=== PATIENT | female | born 1965 | race Caucasian/White ===

== ENCOUNTER → 2023-07-21 08:04 | Outpatient (REF) | payer BC, SELFPAY | LOC: RAD 08:04 | PROVIDERS: ATTENDING PHYSICIAN Nurse Practitioner Family; FAMILY PHYSICIAN Nurse Practitioner Gerontology | DX: C50.919 Malignant neoplasm of unspecified site of unspecified female breast (principal); C78.00 Secondary malignant neoplasm of unspecified lung; R06.00 Dyspnea, unspecified | CPT/HCPCS: 71275; Q9967 ==

== ENCOUNTER → 2023-07-23 10:05 | Outpatient (REF) | payer BC, SELFPAY ==
--- NOTE | 2023-07-23 13:57 | W.PN.UPDATE ---
Update Note
Progress Note Update
tpa/dornase instilled in to the right Asept catheter and left to dwell for 2 hours. AFter 2 hours the Asept was attached to suction and 500cc of serosanguinous fluid was removed. Pt tolerated the procedure well
== END ==
LOC: RADI 10:05
PROVIDERS: ATTENDING PHYSICIAN Nurse Practitioner Family
DX: T85.9XXA Unspecified complication of internal prosthetic device, implant and graft, initial encounter (principal); J90 Pleural effusion, not elsewhere classified; Y83.8 Other surgical procedures as the cause of abnormal reaction of the patient, or of later complication, without mention of misadventure at the time of the procedure
CPT/HCPCS: 32561; J2997

== ENCOUNTER → 2023-09-20 08:36 | Outpatient (REF) | payer BC, SELFPAY ==
[2023-09-20 07:45] VITALS: BP 148/93; BP_SYST 96
[2023-09-20 08:45] VITALS: BP 148/93; BP_SYST 96
--- NOTE | 2023-09-20 09:54 | PTCARENOTE ---
TPA/Dornase instilled by IRAD technologist. Patient resting quietly.
[2023-09-20 11:30] VITALS: BP 148/93
--- NOTE | 2023-09-20 13:14 | PN.IRAD.UPD ---
Update Note - IRAD
- -
injected tpa/dornase at 950, drained it at 1150, took off 350ml of eve fluid, redressed and no complaints
== END ==
LOC: RADI 08:36
PROVIDERS: ATTENDING PHYSICIAN Nurse Practitioner Family; FAMILY PHYSICIAN Nurse Practitioner Gerontology
DX: J90 Pleural effusion, not elsewhere classified (principal)
CPT/HCPCS: 32561; J2997

== ENCOUNTER → 2023-10-11 09:01 | Outpatient (REF) | payer BC, SELFPAY ==
[2023-10-11 09:15] VITALS: BP 182/97; BP_SYST 85
[2023-10-11 11:30] VITALS: BP 164/93; BP_SYST 80
--- NOTE | 2023-10-11 12:27 | PN.IRAD.UPD ---
Update Note - IRAD
- -
INSTILLED TPA AT 1010, DRAINED RIGHT ASEPT AT 1210. TOOK OFF 325ML DARK RED FLUID, NO COMPLAINTS EXCEPT PAIN AT THE SITE. REDRESSED WITH NEW DRESSINGS. AP
== END ==
LOC: RADI 09:01
PROVIDERS: ATTENDING PHYSICIAN Nurse Practitioner Primary Care
DX: C80.1 Malignant (primary) neoplasm, unspecified (principal); J91.0 Malignant pleural effusion
CPT/HCPCS: 32561; J2997

== ENCOUNTER 2023-11-06 14:08 | Emergency (ER) | payer BC, SELFPAY ==
[2023-11-06] VITALS (7 sets, daily range): BP systolic 131–161; BP diastolic 79–94; BMI 26.5
--- NOTE | 2023-11-06 14:33 | ED.GENMED ---
History of Present Illness
General
Chief Complaint: Urinary Symptoms
Source: patient and family (daughter)
Exam Limitations: none
Time Seen by Provider: 11/06/23 14:15
Nursing documentation reviewed up to this point in time: agreed with
Travel History
Have you had any contact with someone who has COVID-19?: No
Do you have any symptoms of coronavirus? Fever > 100 degrees, chills, cough, shortness of breath, sore throat, loss of taste or smell, muscle aches, or headache?: No
History of Present Illness
History of Present Illness:
58-year-old female with a past medical history of breast cancer status post mastectomy, metastatic cervical cancer, atrial fibrillation who presents to the emergency department for evaluation of lower abdominal pressure and hematuria. Patient
reports that she woke up last night with the urge to urinate and when she went to the bathroom she passed some clots through her urethra. She says that she was unable to pass any urine and she had a sensation that her bladder was full. She says
that all day today she has had increasing lower abdominal pressure 'like I have to have a baby.' She says that she has only been able to pass a few clots through her urethra but no urine. She has not noticed any vaginal bleeding. She finally came
to the emergency to be assessed. She denies any recent fevers or chills. She denies any flank pain. She has chronic back pain not worse than usual. She has had a lot of swelling in her lower extremities and abdominal wall she says as a result of
radiation treatments but these were not new issues for her. She denies any other complaints today on review of systems. She takes aspirin but no other blood thinners. [facility] status post
radiation treatment and double mastectomy for breast cancer as well as radiation treatment for cervical cancer; she is currently on chemotherapy (Taxol) for metastatic disease and has chronic pleural effusions with bilateral Pleurx catheters.
Past History
Past History
ED Past Medical History: Arrthythmia and Cancer
ED Past Surgical History:
Social History
Tobacco: Former smoker
Alcohol: None
Drug: None
Personal: Single
Living: with family
Employment: Not employed (Homemaker)
Family History
Family History: CAD
Review of Systems
Review of Systems
All Other Systems: ROS reviewed and negative except as documented in HPI and ROS
Constitutional: Denies fever or chills
Respiratory: Denies trouble breathing
Cardiac: Denies chest pain
ABD/GI: Denies abdominal pain, nausea, vomiting, diarrhea or constipated
: Reports difficulty voiding and bleeding; Denies flank pain
Musculoskeletal: Reports edema (Chronic) and back pain (Chronic); Denies neck pain
Neurological: Denies dizzy or headache
Phy Exam
Physical Exam
Physical Exam:
General: Awake, alert, oriented x3; no acute distress
Head: Normocephalic, atraumatic
Eyes: Conjunctiva normal
Throat: Airway intact, handling secretions
Neck: Trachea midline, supple without meningismus
Lungs: Clear to auscultation bilaterally, no wheezing, rales, rhonchi
Heart: Regular rate and rhythm, no murmurs, gallops, or rubs
Abd: Soft, non distended, tender in the suprapubic region with palpable bladder
Back: No CVA tenderness, no midline thoracic or lumbar tenderness
Neuro: Cranial nerves grossly intact, speech fluid
Skin: no rash
Extremities: Patient has trace edema in her legs bilaterally; distal extremities are warm and well-perfused
Scores
Heart Failure Risk
Heart Failure Risk Score: Not Applicable
Heart Score for Chest Pain Patients
STEMI patient?: Not applicable
Withdrawal Assessment of Alcohol
Withdrawal Assessment Completed?: Not applicable
Course
Orders/Labs/Results
Orders:
Orders
11/06/23 14:17
Bladder Scan- Treatment ONCE
Velasco Placement- Treatment ONCE
Reason for insertion: Acute Retention
11/06/23 14:32
CBI- Treatment PRN
Solution: NS
Irrigate to Clear?: Yes
11/06/23 15:30
Complete Blood Count/With Diff Urgent
Comprehensive Metabolic Panel Urgent
11/06/23 15:32
Urinalysis Reflex To Culture Urgent
Date Specimen was Collected: 11/06/23
Time Specimen was Collected: 15:30
Urine Microscopic Reflex Cult Urgent
Abnormal Lab Results
11/06/23 11/06/23
15:30 15:32
RDW 15.6 H %
(11.5-14.5)
MPV 11.0 H fL
(7.4-10.4)
Absolute Lymphs (auto) 0.4 L 10^3/uL
(1.2-3.4)
Neutrophils % 89.4 H %
(42.2-75.2)
Lymphocytes % 6.5 L %
(20.5-51.1)
Sodium 132 L mmol/L
(135-145)
Creatinine 0.4 L mg/dL
(0.6-1.0)
AST 56 H U/L
(14-36)
ALT 74 H U/L
(0-35)
Alkaline Phosphatase 263 H U/L
(38-126)
Total Protein 5.4 L g/dl
(6.3-8.2)
Albumin 3.0 L g/dl
(3.5-5.0)
Urine Ketones 1+ A
(Negative)
Ur Occult Blood Reflex 4+ A
(Negative)
Leukocyte Esterase Rfl Trace A
(Negative)
Urine RBC >100 A /HPF
(0-2)
Urine Albumin (Reflex) 3+ A
(Neg - Trace)
11/06/23 15:30
11/06/23 15:30
Vital Signs
Initial and Last Documented VS:
Initial Vital Signs
Temp Pulse Resp BP Pulse Ox
36.9 C 96 18 156/88 98
11/06/23 14:10 11/06/23 14:10 11/06/23 14:10 11/06/23 14:10 11/06/23 14:10
Last Documented Vital Signs
Temp Pulse Resp BP Pulse Ox
36.9 C 82 18 142/79 100
11/06/23 14:10 11/06/23 20:00 11/06/23 14:10 11/06/23 20:00 11/06/23 20:00
MDM/Problems Addressed
Differential Diagnosis Includes:
Acute urinary tension secondary to hematuria
MDM/Problems Addressed:
58-year-old female presents to the emergency room for evaluation of hematuria that started last night and difficulty voiding with increasing lower abdominal pressure. She is currently on Taxol for treatment of metastatic breast/cervical cancer.
She follows at [facility]. She is hypertensive but otherwise normal vitals. Physical exam as above. Bladder scan showed greater than 400 cc retained urine. Plan to place Velasco catheter for acute urinary retention. Suspect it is likely
secondary to hematuria and will require some bladder irrigation. Will send a urinalysis. Will check basic blood work. Will reassess after the above.
Labs reviewed: CBC unremarkable, CMP no clinically significant abnormalities. Urinalysis positive for blood. Suspect hematuria may be related to her chemotherapy/radiation treatments. We placed a Velasco catheter with return of dark red urine and
CBI was initiated. Will continue to monitor.
Irrigated with CBI and urine now clear. Will stop CBI and ensure that catheter continues to drain freely. If so can likely be discharged with urology follow-up.
Urine continues to flow freely without clots after CBI was turned off. [place]-tinged urine on reassessment. At this point she is stable for discharge. I spoke to her at length about catheter care, need for close outpatient urologic follow-up. We
spoke about return precautions including if she is noticing poor drainage of the catheter or worsening hematuria, fevers or signs of infection. She is very comfortable with this plan. All questions were answered.
Chronic conditions affecting care:
Metastatic cancer
Acute Exacerbation and/or Progression of Chronic Illness:
Acutely hypertensive
Acute Exacerbation and/or Progression of Chronic Illness: HTN
*Pulse Oximetry
Patient hypoxic: no
*Critical Care Note
Total Time (30-74mins, 75-104mins- exclusive of procedures): Not Applicable
Data Reviewed
Source: patient and family (Daughter)
ED Attending Note
-
Portions of this chart may have been created with voice recognition software.� Occasional wrong word or��sound alike� substitutions may have occurred due to the inherent limitations of voice recognition software.
Discharge Plan
Departure
Patient Disposition: Home (Routine Discharge)
Date of Disposition: 11/06/23
Time of Disposition: 20:12
Patient with high blood pressure during this ER visit?: Yes
Discharge Problem:
Hematuria, Acute urinary retention
Instructions: How to Care for Your Velasco Catheter, Blood in the Urine (Hematuria), Adult (DC)
Prescriptions:
No Action
coenzyme Q10 [Co Q-10] 100 MG capsule
100 mg PO DAILY
zinc sulfate 220 MG capsule
220 mg PO DAILY
cholecalciferol (vitamin D3) 1,000 UNITS tablet
1,000 units PO DAILY
multivitamin with folic acid [Tab-A-Go] 1 TABLET tablet
1 tab PO DAILY
carvedilol 3.125 mg Tablet
6.25 mg PO Q12H
Patient Comments:
2 tablets BID
ondansetron 8 mg Tablet,Disintegrating
8 mg PO Q8H PRN (Reason: nausea)
ascorbic acid (vitamin C) 500 mg Tablet
500 mg PO DAILY
benzonatate 100 mg Capsule
100 mg PO TID PRN (Reason: cough)
aspirin 81 mg Tablet,Chewable
81 mg PO DAILY
furosemide 20 mg Tablet
20 mg PO DAILY
cyanocobalamin (vitamin B-12) [Vitamin B-12] 2,000 mcg Tablet Extended Release
2,000 mcg PO DAILY PRN (Reason: congestion)
spironolactone 25 mg Tablet
25 mg PO DAILY
guaifenesin 600 mg tablet extended release 12hr
600 mg PO Q12 PRN (Reason: cough)
Referrals:
Gino Culver Jr., MD [Active] - Call in 1-3 days for appt (You must call the urologist as soon as possible to schedule follow up appointment to be seen next week as we discussed. )
Activity Restrictions/Additional Instructions:
Thank you for visiting the Emergency Department at [facility].
1. Please schedule a follow up appointment as directed. Call first thing tomorrow morning to make an appointment.
2. If indicated, please take your medications as instructed and indicated on discharge paperwork.
3. If any of your symptoms do not improve, or persist, or become more severe within 6-12 hours, please return to the emergency department for further care.
4. Please return to the emergency department if you develop a headache, neck pain/stiffness, fever greater than 100.4F, chest pain, shortness of breath, persistent nausea, vomiting, slurred speech, difficulty walking, numbness/tingling, weakness,
signs of infection or any other symptoms that are worrisome to you.
Please call [phone] if you have any questions.
Interventions
Interventions:
*Risk Screen - Suicide Last Done: 11/06/23 14:10
*General Assessment Last Done: 11/06/23 14:10
*Neglect/Abuse Screening Last Done: 11/06/23 14:10
*ED COVID-19 Vaccine History Last Done: 11/06/23 14:10
ED-Female Genitourinary Assessment Last Done: 11/06/23 19:40
Discharge Date and Time
Print Language: PAKISTANI
[2023-11-06 15:45] LABS: Urine Albumin 3+ (Neg - Trace); Urine Bilirubin Negative (Negative); Urine Character Bloody (Clear); Urine Color Red; Urine Glucose Negative (Negative); Urine Ketone 1+ (Negative); Urine Leukocyte Trace (Negative); Urine Nitrite Negative (Negative); Urine Occult Blood 4+ (Negative); Urine Urobilinogen Negative (Neg - 1+)
[2023-11-06 15:53] LABS: ALT (SGPT) 74 U/L (0-35); AST (SGOT) 56 U/L (14-36); Alkaline Phosphatase 263 U/L (38-126); Blood Urea Nitrogen 16 mg/dl (7-17); Calcium 8.9 mg/dl (8.4-10.2); Carbon Dioxide 25 mmol/L (22-30); Chloride 101 mmol/L (98-107); Estimated Creatinine Clearance 98 ml/min; Glucose 93 mg/dl (70-99); Potassium 4.1 mmol/L (3.5-5.1); Sodium 132 mmol/L (135-145); Total Bilirubin 0.7 mg/dl (0.2-1.3); Total Protein 5.4 g/dl (6.3-8.2); eGFR > 60.00
[2023-11-06 15:59] LABS: Urine Red Blood Cell >100 /HPF (0-2)
[2023-11-06 16:11] LABS: % Basophils 0.7 % (0-2); % Eosinophils 0.5 % (0-6); % Immature Granulocytes 0.5 % (0-0.5); % Lymphocytes 6.5 % (20.5-51.1); % Monocytes 2.4 % (1.7-9.3); % Neutrophils 89.4 % (42.2-75.2); Absolute Lymphocytes 0.4 10^3/uL (1.2-3.4); Absolute Monocytes 0.1 10^3/uL (0.1-0.6); Absolute Neutrophils 5.3 10^3/uL (1.4-6.5); Hematocrit 37.1 % (37.0-47.0); Hemoglobin 12.3 g/dL (12.0-16.0); Mean Corp Hgb Conc. 33.2 g/dL (33.0-37.0); Mean Corpuscular Hgb 28.9 pg (27.0-31.0); Mean Corpuscular Volume 87.3 fL (81.0-99.0); Nucleated Red Blood Cells % 0 %; Platelet Count 356 10^3/uL (130-400); Red Blood Cell Count 4.25 10^6/uL (4.20-5.40); Red Cell Dist. Width 15.6 % (11.5-14.5); White Blood Cell Count 5.9 10^3/uL (4.8-10.8)
--- NOTE | 2023-11-06 20:33 | EDRN ---
Pt eating spaghetti that family brought. This RN removed pt's iv, pressure dressing applied. Prepared to switch pt's ramirez bag to leg bag and pt expressed concern about being discharged. Pt worried about blood in her urine that she has never had
previously and thinks it might be best to stay overnight and see urology tomorrow. Pt is concerned about getting worse and having to return to ED. Pt spoke with her daughter who is an ED nurse and she reportedly also expressed concern that pt was
being sent home. Dr Landaverde informed and will come speak with pt - pt updated.
--- NOTE | 2023-11-06 21:43 | EDRN ---
Plugged CBI port of 3 way ramirez and switched to leg bag. Still draining bloody urine. Stat lock applied to R inner thigh. Instructions on leg bag and changing to overnight drainage bag provided. Reviewed trouble shooting of ramirez drainage. Pt
given urinal to use at home to drain bag. Sent velcro leg strap that was originally on pt's leg to secure ramirez in place home with pt.
== END 2023-11-06 21:38 | disposition home or self-care (01) ==
LOC: EMR 14:08
PROVIDERS: EMERGENCY PHYSICIAN Emergency Medicine
DX: R33.9 Retention of urine, unspecified (principal); R31.9 Hematuria, unspecified; C50.919 Malignant neoplasm of unspecified site of unspecified female breast; C79.9 Secondary malignant neoplasm of unspecified site; M54.9 Dorsalgia, unspecified; I48.91 Unspecified atrial fibrillation; G89.29 Other chronic pain; Z79.82 Long term (current) use of aspirin; Z85.3 Personal history of malignant neoplasm of breast; Z85.41 Personal history of malignant neoplasm of cervix uteri; Z92.3 Personal history of irradiation; Z87.891 Personal history of nicotine dependence; Z90.13 Acquired absence of bilateral breasts and nipples; Z88.0 Allergy status to penicillin
CPT/HCPCS: 99284; 51702; 80053; 81003; 81015; 85025

== ENCOUNTER 2023-11-23 22:27 | Inpatient (IN) | payer BC, SELFPAY ==
[2023-11-23 16:29] VITALS: BP 108/79
[2023-11-23 17:32] VITALS: BMI 26.3
[2023-11-23] MEDS: ZOFRAN 4 MG IV (18:21)
[2023-11-23] MEDS: DILAUDID 1 MG IV (18:21)
--- NOTE | 2023-11-23 18:23 | ED.GENMED ---
History of Present Illness
General
Chief Complaint: Breathing Problem
Source: patient
Exam Limitations: none
Time Seen by Provider: 11/23/23 17:50
Travel History
Have you had any contact with someone who has COVID-19?: No
Do you have any symptoms of coronavirus? Fever > 100 degrees, chills, cough, shortness of breath, sore throat, loss of taste or smell, muscle aches, or headache?: No
History of Present Illness
History of Present Illness:
This is a 58 year old female that complaints of back pain and SOB. States that she has pain in the back for the past 4 days. States that it is difficult to move. States that she has drained placed in both lungs. The left was placed here in June
and the the right was place November 11 at [place]. States that her doctor was trying to get her Morphine for pain but she doesn't have anything yet. States that the pain is so bad that she can't sleep. states that her abd is distended for the past 2
days and that she has fluid in her lungs. States that her chest feels tight and she is SOB. Patient wears oxygen continually. States that she did vomit 2 days ago and that she is slightly dizzy. Denies any fever, chills, diarrhea headache, urinary
burning.
Past History
Past History
ED Past Medical History: Arrthythmia (Atrial fib), Cancer (Breast CA with met to lungs. Cervical CA) and Other (Bilateral lung drains, Ovarian cyst, Thoracentesis)
ED Past Surgical History: (X 3) and Other (Hernia, bilateral mastectomy, )
Social History
Tobacco: Former smoker
Alcohol: None
Drug: None
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
Living: with family
Employment: Not employed (Homemaker)
Family History
Family History: CAD
Review of Systems
Review of Systems
All Other Systems: ROS reviewed and negative except as documented in HPI and ROS
Constitutional: Reports no symptoms; Denies fever or chills
EENT: Reports no symptoms
Respiratory: Reports trouble breathing; Denies cough
Cardiac: Reports chest pain (Tightness)
ABD/GI: Reports abdominal pain, nausea and vomiting; Denies diarrhea
: Reports no symptoms; Denies dysuria, frequency or urgency
Musculoskeletal: Reports back pain
Skin: Reports no symptoms
Neurological: Reports dizzy (Slight); Denies headache
Psychiatric: Reports no symptoms
Phy Exam
General Physical Exam
General Presentation: mild distress
General age: appears stated age
General Skin: warm and dry
General Habitus: normal
General Mental: alert
General Hydration: appears well hydrated
ENT Exam
ENT Exam: TM's normal, pharynx normal and neck supple
Eye Exam
Eye Exam: EOMI
Cardiovascular Exam
Cardiovascular Exam: regular rate/rhythm and normal peripheral pulses
Pulmonary Exam
Pulmonary Exam: no respiratory distress, no rales, no crackles, no rhonchi, no wheezing, no cough, decreased breath sounds (Right lower lobe, ) and other (Bilateral pleuritic drains noted)
Gastrointestinal Exam
Gastrointestinal Exam: soft, no organomegaly, no pulsatile mass, tender (Slight generalized tenderness with palpation) and other (Hypoactive bowel sounds, Slight Distention, )
Musculoskeletal Exam
Musculoskeletal Exam: full ROM and edema (Feet and legs into the thigh, +1 lower legs and degreases into the thighs)
Skin Exam
Skin Exam: normal color, warm/dry, no rash and no petechia
Psychiatric Exam
Psychiatric Exam: normal mood/affect
Scores
Heart Failure Risk
Heart Failure Risk Score: Not Applicable
Course
Orders/Labs/Results
Orders:
Orders
11/23/23 Dinner
Regular
At Your Request: Full Participation
Fluid Restriction: 1200 mL/day (40 oz)
11/23/23 18:15
CT Chest Pe Study Urgent
Comment:
Reason For Exam: chest tightness, SOB, back pain
HYDROmorphone [Dilaudid] 1 mg IV NOW STA
Ondansetron Injectable [Zofran] 4 mg IV NOW STA
11/23/23 18:21
Complete Blood Count/With Diff Urgent
Comprehensive Metabolic Panel Urgent
NT-proBNP Urgent
Troponin I Urgent
11/23/23 18:34
Electrocardiogram (*1) Urgent
Reason for Study: Shortness of Breath
11/23/23 20:44
Prothrombin Time Urgent
Aztreonam [Azactam] 2,000 mg IV NOW STA
Vancomycin 1 Gram/200 ml [Vancocin] 1 gram in 200 ml IV NOW
11/23/23 20:46
HYDROmorphone [Dilaudid] 0.5 mg IV NOW STA
11/23/23 20:48
0.9% Sodium Chloride 500 ml [Nss] 500 ml IV BOLUS
11/23/23 21:15
Lactic Acid Urgent
Blood Culture Q30M
LISA Source: Blood/Venous
Specimen Description:
11/23/23 21:48
Admit/Transfer Patient As Directed
Co-Sign Provider:
Level of Care: Inpatient admission
Assign to:: Medical/Surgical
Physician / Group: elie
Diagnosis: bilateral pleural effussions
Reason for Hospitalization: bilateral pleural effussions
Expected length of stay greater than two midnights?: Yes
ELOS- Estimated Length of Stay in days: 2
I certify the patient meets the requirements for IP care: Yes
11/23/23 21:49
Code Status As Directed
Resuscitation Status: Full Code
11/23/23 22:12
Blood Culture Q30M
LISA Source: Blood/Venous
Specimen Description:
11/23/23 22:16
Sterile Water [Sterile Water For Injection] 10 ml .ROUTE .STK-MED ONE
11/23/23 23:37
Albuterol [ProAIR HFA INHALER] 1 puff INH R Q6HPRN PRN
Morphine Sulfate 1 mg IV Q6HPRN PRN
Simethicone [Mylicon] 80 mg PO Q6HPRN PRN
11/23/23 23:37
Urine Osmolality Random [Osmolality, Random Urine] Urgent
Urine Sodium Urgent
Activity As Directed
Activity Level: As Tolerated
Vital Signs As Directed
Frequency: Per unit guidelines
DX Deep Vein Thrombosis Video Routine
11/23/23 23:45
Ondansetron HCl [Zofran] 8 mg PO Q8HPRN PRN
11/24/23 06:00
Complete Blood Count/With Diff IN AM
Comprehensive Metabolic Panel IN AM
11/24/23 08:00
Ascorbic Acid [Vitamin C] 500 mg PO DAILY
Carvedilol [Coreg] 3.125 mg PO BID
Cholecalciferol (Vitamin D3) [VITAMIN D3 (cholecalciferol)] 25 mcg PO DAILY
Cyanocobalamin [Vitamin B-12] 1,000 mcg PO DAILY
FOLic ACID [Folvite] 1 mg PO DAILY
Furosemide [Lasix] 20 mg PO DAILY
Heparin 5,000 units SC Q12
Spironolactone [Aldactone] 25 mg PO DAILY
Valsartan [Diovan] 40 mg PO DAILY
Abnormal Lab Results
11/23/23
18:21
RBC 3.66 L 10^6/uL
(4.20-5.40)
Hgb 10.5 L g/dL
(12.0-16.0)
Hct 30.5 L %
(37.0-47.0)
RDW 16.1 H %
(11.5-14.5)
Plt Count 401 H 10^3/uL
(130-400)
Abs Immat Gran (auto) 0.1 H 10^3/uL
(0-0.05)
Absolute Neuts (auto) 8.6 H 10^3/uL
(1.4-6.5)
Absolute Lymphs (auto) 0.3 L 10^3/uL
(1.2-3.4)
Immature Gran % 1.0 H %
(0-0.5)
Neutrophils % 88.9 H %
(42.2-75.2)
Lymphocytes % 3.1 L %
(20.5-51.1)
Sodium 127 L mmol/L
(135-145)
BUN 21 H mg/dl
(7-17)
Glucose 118 H mg/dl
(70-99)
AST 136 H U/L
(14-36)
ALT 127 H U/L
(0-35)
Alkaline Phosphatase 553 H U/L
(38-126)
Total Protein 4.8 L g/dl
(6.3-8.2)
Albumin 2.5 L g/dl
(3.5-5.0)
11/23/23 18:21
11/23/23 18:21
H/H low. Hyponatremia, Dehydration. Glucose nonfasting. AST/ALT elevation. Alk phos elevation. Total protein low. Albumin low. Troponin <0.012, Pro-BNP 170
Vital Signs
Initial and Last Documented VS:
Initial Vital Signs
Temp Pulse Resp BP Pulse Ox
98.3 F 94 18 108/79 100
11/23/23 16:29 11/23/23 16:29 11/23/23 16:29 11/23/23 16:29 11/23/23 16:29
Last Documented Vital Signs
Temp Pulse Resp BP Pulse Ox
98.3 F 87 24 108/79 100
11/23/23 16:29 11/23/23 18:15 11/23/23 18:15 11/23/23 16:29 11/23/23 18:15
MDM/Problems Addressed
Differential Diagnosis Includes:
Metastatic disease, Pleural effusion,
MDM/Problems Addressed:
This is a 58 year old female that Breast, lung and cervical cancer. Patient comes in with c/o back pain and right sided chest pain. States that she has a drain placed in the right lung but it really has not been draining much. States that she has
back pain and that her Doctor was trying to get her a little MS but she has not gotten this yet.
Will get labs. CT chest and pain medication.
back into see patient. Explained that she would be admitted as her Sodium is low and the CT shows that the bilateral pleural effusion as loculated and that there are area's of Pneumonia. Will admit patient.
Chronic conditions affecting care: Cancer
Acute Exacerbation and/or Progression of Chronic Illness: Cancer
*Radiology
Radiology exam reviewed: radiology read reviewed (CT-NO eivdence of pulmonary embolus. Moderate loculated bilateral pleural effusions. Improved on the right. Progressed on the left. Moderate bibasilar consolidation concerning for Pneumonia. improved
on the right Progressed on the left. MIld bilateral upper lobe findings suggesting Pneumonia, left ), all reviewed NAD by ED Provider (CT cont-than right. Stable on the right. New on the left. Findings suggesting mild blastic osseous metastatic
disease. mildly progressed. Probable hepatic metatstasis. limited evaluation due to the early phase enhancement. New. Therefore, this may not be metastic disease and due to early ) and other (CT cont- enhancement. Mild upper abd ascites. New)
*Pulse Oximetry
Patient hypoxic: no
*EKG
Interpreted by ED Provider?: Yes
Heart Rate: 82
Rate: normal
Rhythm: sinus
[place]: normal axis
QRS Pattern: normal QRS
Ischemia: no ischemia
*Supervisor Shipping Room Interpretation
Rate: normal
Heart Rate: 91
Rhythm: sinus
*Critical Care Note
Total Time (30-74mins, 75-104mins- exclusive of procedures): Not Applicable
ED Attending Note
-
Portions of this chart may have been created with voice recognition software.� Occasional wrong word or��sound alike� substitutions may have occurred due to the inherent limitations of voice recognition software.
Discharge Plan
Departure
Patient Disposition: Admit
Date of Disposition: 11/23/23
Time of Disposition: 20:46
Admit to: Telemetry
Presentation/result/management discussed w/ accepting MD/DO: Hospitalist
Patient with high blood pressure during this ER visit?: No
Condition: Good
Covid-19: Not Applicable
Discharge Problem:
Acute hyponatremia, Bilateral Pneumonia, Pleural effusion, bilateral
Interventions
Interventions:
*Risk Screen - Suicide Last Done: 11/23/23 17:24
*General Assessment Last Done: 11/23/23 17:24
*Neglect/Abuse Screening Last Done: 11/23/23 17:24
ED- Fall Risk Assessment Last Done: 11/23/23 17:24
*ED COVID-19 Vaccine History Last Done: 11/23/23 17:24
ED- Cardiac Assessment Last Done: 11/23/23 17:24
ED- Pulmonary Assessment Last Done: 11/23/23 17:24
[2023-11-23 18:36] LABS: % Basophils 0.3 % (0-2); % Eosinophils 0.1 % (0-6); % Lymphocytes 3.1 % (20.5-51.1); % Monocytes 6.6 % (1.7-9.3); % Neutrophils 88.9 % (42.2-75.2); Absolute Immature Granulocytes 0.1 10^3/uL (0-0.05); Absolute Lymphocytes 0.3 10^3/uL (1.2-3.4); Absolute Monocytes 0.6 10^3/uL (0.1-0.6); Absolute Neutrophils 8.6 10^3/uL (1.4-6.5); Hematocrit 30.5 % (37.0-47.0); Hemoglobin 10.5 g/dL (12.0-16.0); Mean Corp Hgb Conc. 34.4 g/dL (33.0-37.0); Mean Corpuscular Hgb 28.7 pg (27.0-31.0); Mean Corpuscular Volume 83.3 fL (81.0-99.0); Mean Platelet Volume 10.4 fL (7.4-10.4); Nucleated Red Blood Cells % 0 %; Platelet Count 401 10^3/uL (130-400); Red Blood Cell Count 3.66 10^6/uL (4.20-5.40); Red Cell Dist. Width 16.1 % (11.5-14.5); White Blood Cell Count 9.6 10^3/uL (4.8-10.8)
[2023-11-23 18:49] LABS: ALT (SGPT) 127 U/L (0-35); AST (SGOT) 136 U/L (14-36); Albumin 2.5 g/dl (3.5-5.0); Alkaline Phosphatase 553 U/L (38-126); Blood Urea Nitrogen 21 mg/dl (7-17); Calcium 8.9 mg/dl (8.4-10.2); Carbon Dioxide 25 mmol/L (22-30); Chloride 98 mmol/L (98-107); Estimated Creatinine Clearance 98 ml/min; Glucose 118 mg/dl (70-99); Sodium 127 mmol/L (135-145); Total Bilirubin 0.5 mg/dl (0.2-1.3); Total Protein 4.8 g/dl (6.3-8.2); eGFR > 60.00
[2023-11-23 19:00] LABS: Troponin I < 0.012 ng/ml
[2023-11-23 19:33] LABS: NT-proBNP 170 pg/ml
[2023-11-23 20:45] VITALS: BP 121/76
[2023-11-23 21:00] VITALS: BP 123/79
[2023-11-23 21:06] LABS: INR 1.15; PT 14.5 Sec (11.4-14.6)
[2023-11-23] MEDS: DILAUDID 0.5 MG IV (21:19)
[2023-11-23] MEDS: NSS 500 IV (21:24)
[2023-11-23 21:39] LABS: Lactic Acid 1.2 mmol/L (0.7-2.0)
--- NOTE | 2023-11-23 21:50 | HPS.HSE ---
Family Physician
-
Family Physician: Marshall Trujillo NP
Chief Complaint
-
back pain, shortness of breath
History of Present Illness
58-year-old female past medical history of breast cancer s/p mastectomy and radiation and chemotherapy which she last received yesterday and follows at [facility], uterine/cervical cancer status post radiation, history of bilateral pleural effusions with
bilateral Pleurx catheters, migraine, paroxysmal atrial fibrillation, hypertension presenting with progressive shortness of breath as well as new onset back pain over the past few days.
Patient has a complex history of bilateral pleural effusions with a prior Pleurx catheter placed on the right side at [facility] and another pleural catheter placed on the left side at [facility]. The left-sided catheter is draining 750 cc every day.
The right-sided catheter is only draining under 100/day. The right-sided Pleurx catheter has been giving her problems in the past and required tPA multiple times in the past. She has chest tightness and feels a Coban constricting around her chest.
She has some mild cough. Denies any fevers or chills.
She was recently hospitalized at [facility] over the past week for urinary tract infection treated with IV antibiotics.
She is having pain across her upper back radiating to her right shoulder and also downward. She denies any pain in the upper extremities or numbness or tingling in the upper extremities.
She states that her abdomen has been distended for the past 2 days. She did vomit 2 days ago and did feel dizzy. She denies any fevers or chills, diarrhea, headache or urinary symptoms.
She also complains of bilateral lower extremity edema all the way up to her pubic region. She had venous ultrasounds 2 months ago which were negative for DVT. Lower extremity swelling improves with massaging.
She has been drinking more fluids recently.
Medical History
Past Medical History
Past Medical History: Reports Other (breast cancer s/p mastectomy and radiation and chemotherapy which she last received yesterday and follows at [facility], uterine/cervical cancer status post radiation, history of bilateral pleural effusions with
bilateral Pleurx catheters, migraine, paroxysmal atrial fibrillation, hypertension)
Past Surgical History: Reports Other ( (X 3) and Other (Hernia, bilateral mastectomy, ))
Social History
Tobacco: Non-smoker
Alcohol: None
Drug: None
Family History
Family History: Not pertinent
Allergies / Home Medications
Allergies reflects when Allergies were last updated in [facility].
Home Medications with original date entered in [facility]
Allergy/Medication List:
Allergies
Allergy/AdvReac Type Severity Reaction Status Date / Time
Penicillins Allergy Anaphylaxis Verified 11/23/23 16:34
Home Medications
ascorbic acid (vitamin C) 500 mg tablet 500 mg PO DAILY 06/23/23
carvedilol 3.125 mg tablet 3.125 mg PO BID 06/23/23
furosemide 20 mg tablet 20 mg PO DAILY 06/23/23
ondansetron 8 mg disintegrating tablet 8 mg PO Q8H PRN nausea/vomiting 06/23/23
spironolactone 25 mg tablet 25 mg PO DAILY 09/20/23
albuterol sulfate 90 mcg/actuation aerosol inhaler 1 puff inhalation R Q6HPRN PRN sob/wheezing 11/23/23
cholecalciferol (vitamin D3) 25 mcg (1,000 unit) tablet 25 mcg PO DAILY 11/23/23
cyanocobalamin (vitamin B-12) 1,000 mcg tablet 1,000 mcg PO DAILY 11/23/23
folic acid 1 mg tablet 1 mg PO DAILY 11/23/23
simethicone 80 mg chewable tablet 80 mg PO Q6HPRN PRN gas 11/23/23
valsartan 40 mg tablet 40 mg PO DAILY 11/23/23
Review of Systems
-
History Source: Patient
A 12 point ROS was completed and negative except as noted: Yes
Constitutional: Reports No Symptoms
EENT: Reports No Symptoms
Respiratory: Reports See HPI
Cardiac: Reports No Symptoms
Abdomen/GI: Reports No Symptoms
: Reports No Symptoms
Musculoskeletal: Reports See HPI
Skin: Reports No Symptoms
Neurological: Reports No Symptoms
Endocrine: Reports No Symptoms
Hematologic/Lymphatic: Reports No Symptoms
Psych: Reports No Symptoms
Physical Exam
Vital Signs
Vital Signs
Temp Pulse Resp BP Pulse Ox
98.3 F 87 24 108/79 100
11/23/23 16:29 11/23/23 18:15 11/23/23 18:15 11/23/23 16:29 11/23/23 18:15
Physical Exam
General: Well Developed, Well Nourished and No Apparent Distress
HEENT: NormoCephalic, Moist mucous membranes and Atraumatic
Respiratory: Decreased Breath Sounds
Cardiac: S1/S2, Regular Rhythm and Peripheral Edema; No Murmur or Rub
GI: Soft, Non Tender, Non Distended and Normal Bowel Sounds; No Organomegaly
Rectal: Deferred by Provider
Musculoskeletal: No Clubbing, No Cyanosis and No Edema
Skin: No Rash
Neuro: Nonfocal/grossly intact
Laboratory Results
-
11/23/23 18:21
11/23/23 18:21
Laboratory Results
PT 14.5 Sec (11.4-14.6) 11/23/23 20:44
INR 1.15 11/23/23 20:44
Lactic Acid 1.2 mmol/L (0.7-2.0) 11/23/23 21:15
Total Bilirubin 0.5 mg/dl (0.2-1.3) 11/23/23 18:21
AST 136 U/L (14-36) H 11/23/23 18:21
ALT 127 U/L (0-35) H 11/23/23 18:21
Alkaline Phosphatase 553 U/L (38-126) H 11/23/23 18:21
Troponin I < 0.012 ng/ml 11/23/23 18:21
Data Reviewed
-
Lab Data: Labs Reviewed by me
Old Records: Reviewed
Impression/Plan
-
IMPRESSION:
PLAN:
# Moderate loculated bilateral likely malignant pleural effusions, progressed on the left, improved on the right
# Right sided Pleurx catheter with minimal drainage placed the dorsum
# Left-sided pleural catheter with moderate drainage placed at [facility]
-IR consulted for consideration of tPA of the right Pleurx catheter
-Pulmonology consulted
# Moderate bibasilar consolidation concerning for pneumonia progressed on the left in the setting of immunocompromise status due to chemotherapy
-Check blood cultures
-Vancomycin/aztreonam
# Upper back pain likely due to blastic osseous metastatic disease
-Upper back pain is nonspecific
-Morphine for pain
# Abdominal pain secondary to mild upper abdominal ascites/probable hepatic metastases
# Transaminitis secondary to likely hepatic metastases
-Continue spironolactone
-Continue Lasix
# Bilateral lymphedema secondary to prior uterine radiation/venous insufficiency/hypoalbuminemia
-Continue Lasix/Spironolactone
-Patient reportedly had venous ultrasounds most recently 2 months ago which were negative for DVT
-Continue compression
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
-Check urine sodium, osmolality
-Fluid restriction 40 ounces
Breast cancer status postmastectomy and/radiation, received chemotherapy yesterday
Uterine cancer/cervical cancer status post radiation
Paroxysmal atrial fibrillation
-Continue Coreg
-Continue aspirin
Essential hypertension
-Continue losartan
History of migraines
Full code
DVT prophylaxis�heparin
Regular diet
[2023-11-23] MEDS: AZACTAM 2000 MG IV (22:21)
[2023-11-23] MEDS: VANCOCIN 200 IV (22:30)
[2023-11-23 23:00] VITALS: BP 102/70
[2023-11-24] VITALS (18 sets, daily range): BP systolic 97–117; BP diastolic 62–77; BMI 26.3; BMI 25.3
[2023-11-24] MEDS: VANCOCIN 200 IV (02:12)
--- NOTE | 2023-11-24 03:00 | PHA.VAN.IN ---
Addendum entered and electronically signed by Elli Salmon [facility] 11/24/23 13:47:
AM labs reviewed. Will continue present dosing.
Original Note:
Assessment
- Assessment
Renal Function: Appears similar to baseline
Concomitant Antimicrobials: AZTREONAM
AUC Dosing Plan
- Dosing Variables
Dosing Weight (kg): 74
Dosing CrCl (ml/min): 122
Vd coefficient (L/kg): 0.7
- Empiric Dosing
Initial / Loading Dose: 2000MG SPLIT LOAD
Maintenance Regimen: 1250MG Q12H
Estimated AUC (mcg*h/mL): 493
Estimated Peak (mcg*h/mL): 33.6
Estimated Trough (mcg/ml): 11.1
Estimated Half Life (H): 6.6
- Monitoring
No levels ordered at this time: CONSIDER LEVEL PRIOR TO 4TH MAINTENANCE DOSE
MRSA Screen: Ordered per protocol
Pharmacokinetics Vancomycin I
- -
Patient Age: 58
Patient Sex: Female
Vancomycin Day #: 1
Indication: PULM
Requesting Provider: DR. THOMAS
Pertinent Antimicrobial Allergies:
PENICILLIN (ANAPHYLAXIS)
Height / Weight:
Height 5 ft 6 in
Actual Weight 74 kg
Pertinent Past Medical History: BREAST CA ON CHEMO AND RADIATION, UTERINE/CERVICAL CA
- Vital Signs / Lab Results
Temp Pulse Resp BP Pulse Ox
98.3 F 87 24 108/79 100
11/23/23 16:29 11/23/23 18:15 11/23/23 18:15 11/23/23 16:29 11/23/23 18:15
Lab Results - Hematology
11/23/23
18:21
WBC 9.6
Lab Results - Chemistry
11/23/23
18:21
BUN 21 H
Creatinine 0.6
Estimated Creat Clear 98
Albumin 2.5 L
11/23/23
21:15
Lactic Acid 1.2
[2023-11-24] MEDS: MORPHINE SULFATE 1 MG IV ×2 (03:36→09:47)
[2023-11-24 06:58] LABS: % Basophils 0.4 % (0-2); % Eosinophils 0.7 % (0-6); % Immature Granulocytes 0.6 % (0-0.5); % Lymphocytes 4.8 % (20.5-51.1); % Monocytes 4.4 % (1.7-9.3); % Neutrophils 89.1 % (42.2-75.2); Absolute Eosinophils 0.1 10^3/uL (0-0.7); Absolute Lymphocytes 0.3 10^3/uL (1.2-3.4); Absolute Monocytes 0.3 10^3/uL (0.1-0.6); Absolute Neutrophils 6.1 10^3/uL (1.4-6.5); Hematocrit 29.9 % (37.0-47.0); Hemoglobin 9.7 g/dL (12.0-16.0); Mean Corp Hgb Conc. 32.4 g/dL (33.0-37.0); Mean Corpuscular Hgb 28.4 pg (27.0-31.0); Mean Corpuscular Volume 87.7 fL (81.0-99.0); Mean Platelet Volume 10.2 fL (7.4-10.4); Nucleated Red Blood Cells % 0 %; Platelet Count 297 10^3/uL (130-400); Red Blood Cell Count 3.41 10^6/uL (4.20-5.40); Red Cell Dist. Width 16.5 % (11.5-14.5); White Blood Cell Count 6.9 10^3/uL (4.8-10.8)
[2023-11-24 07:38] LABS: ALT (SGPT) 114 U/L (0-35); AST (SGOT) 127 U/L (14-36); Albumin 2.2 g/dl (3.5-5.0); Alkaline Phosphatase 457 U/L (38-126); Blood Urea Nitrogen 22 mg/dl (7-17); Calcium 8.4 mg/dl (8.4-10.2); Carbon Dioxide 26 mmol/L (22-30); Chloride 100 mmol/L (98-107); Estimated Creatinine Clearance 98 ml/min; Glucose 103 mg/dl (70-99); Potassium 4.3 mmol/L (3.5-5.1); Sodium 130 mmol/L (135-145); Total Bilirubin 0.4 mg/dl (0.2-1.3); Total Protein 4.4 g/dl (6.3-8.2); eGFR > 60.00
--- NOTE | 2023-11-24 08:21 | W.PN.HOSP.TC ---
Addendum entered and electronically signed by Rex Talbot MD 11/24/23 15:33:
MRI confirms stroke--> neurology consult.
Original Note:
Today's Communication/Plan
-
MRI of the brain. Pulmonary consult. IV antibiotics.
Assessment / Plan
Assessment / Plan
Physical Exam
General: Acutely ill
HEENT: NormoCephalic, Moist mucous membranes and Atraumatic
Respiratory: Decreased Breath Sounds
Cardiac: S1/S2, Regular Rhythm and Peripheral Edema; No Murmur or Rub
GI: Soft, Non Tender, Non Distended and Normal Bowel Sounds; No Organomegaly
Rectal: Deferred by Provider
Musculoskeletal: No Clubbing, No Cyanosis and No Edema
Skin: No Rash
Neuro: Alert oriented x 3. Left eye all quadrants intact. Right eye loss of vision on all quadrants. Strength 4 out of 5 all 4 extremities.
A/P:
# Moderate loculated bilateral likely malignant pleural effusions, progressed on the left, improved on the right
# Right sided Pleurx catheter with minimal drainage placed the dorsum
# Left-sided pleural catheter with moderate drainage placed at [facility]
-IR consulted for consideration of tPA of the right Pleurx catheter.
-Pulmonology consulted
-Will request oncology consult for further advice.
# Moderate bibasilar consolidation concerning for pneumonia progressed on the left in the setting of immunocompromise status due to chemotherapy
-Check blood cultures
-Vancomycin/aztreonam
# Right visual loss
-Concern for acute stroke but out of the time window for tPA/TNK
-I was going to do a CT of the head stat followed by MRI of the brain. Patient prefers only MRI of the brain.
-Depending on MRI of the brain, will decide any further workup or treatment.
-NIH score for now.
# Upper back pain likely due to blastic osseous metastatic disease
-Upper back pain is nonspecific
-Morphine for pain
# Abdominal pain secondary to mild upper abdominal ascites/probable hepatic metastases
# Transaminitis secondary to likely hepatic metastases
-Continue spironolactone
-Continue Lasix
# Bilateral lymphedema secondary to prior uterine radiation/venous insufficiency/hypoalbuminemia
-Continue Lasix/Spironolactone
-Patient reportedly had venous ultrasounds most recently 2 months ago which were negative for DVT
-Continue compression
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
-Check urine sodium, osmolality
-Fluid restriction 40 ounces
Breast cancer status postmastectomy and/radiation, received chemotherapy yesterday
Uterine cancer/cervical cancer status post radiation
Paroxysmal atrial fibrillation
-Continue Coreg
-Continue aspirin
Essential hypertension
-Continue losartan
History of migraines
Full code
DVT prophylaxis�heparin
Regular diet
Total time spent on today's encounter was 52 minutes which included time spent in counseling the patient/family regarding diagnosis and treatment plan as listed above, goals of care, and symptom management. Case was discussed with nursing staff,
specialists, and care coordinators/case management. All labs and imaging personally reviewed by me. Remainder the time spent in detailed review of previous records, lab data, imaging, and other medical provider documentation.
Anticipated Discharge: > 48 hours
Subjective/Interval History
-
Date of Service: November 24, 2023
Patient complains of shortness of breath. Patient also complains of right eye vision loss over the last several days, at least for 5 days. Generalized weakness but no focality. No slurred speech. No headache. Afebrile
Objective Data
-
Labs:
Laboratory Results
11/23/23 11/24/23
20:44 06:15
WBC 6.9
Hgb 9.7 L
Hct 29.9 L
Plt Count 297 D
PT 14.5
INR 1.15
Sodium 130 L
Potassium 4.3
Chloride 100
Carbon Dioxide 26
BUN 22 H
Creatinine 0.5 L
Glucose 103 H
Calcium 8.4
Total Bilirubin 0.4
AST 127 H
ALT 114 H
Alkaline Phosphatase 457 H
Vital Signs:
Vital Signs
Temp Pulse Resp BP Pulse Ox
98.3 F 83 16 115/73 98
11/23/23 16:29 11/24/23 07:15 11/24/23 07:15 11/24/23 07:00 11/24/23 07:15
[2023-11-24] MEDS: DIOVAN 40 MG PO (09:18)
[2023-11-24] MEDS: ALDACTONE 25 MG PO (09:18)
[2023-11-24] MEDS: VITAMIN C 500 MG PO (09:18)
[2023-11-24] MEDS: VITAMIN B-12 1000 MCG PO (09:19)
[2023-11-24] MEDS: COREG 3.125 MG PO ×2 (09:19→20:17)
[2023-11-24] MEDS: VITAMIN D3 (cholecalciferol) 25 MCG PO (09:19)
[2023-11-24] MEDS: STERILE WATER FOR INJECTION 10 ML IV ×3 (09:19→23:42)
[2023-11-24] MEDS: HEPARIN 5000 UNITS SC (09:20)
[2023-11-24] MEDS: AZACTAM 2000 MG IV ×3 (09:20→23:42)
[2023-11-24] MEDS: LASIX 20 MG PO (09:20)
[2023-11-24] MEDS: FOLVITE 1 MG PO (09:20)
--- NOTE | 2023-11-24 10:03 | CON.PUL ---
Consultation
Consultation Request
Date/Time Consultation Requested: 11/24/2023-10 AM
Date/Time Consultation Performed: 11/24/2023-10 AM
Requesting Provider: Hospitalist
Performing Provider: Dr. Cavazos
Reason for Consultation: Shortness of breath
Medical History
-
Chief Complaint: Shortness of breath
History of Present Illness:
58-year-old female with recurrent breast cancer with pulmonary metastases and bilateral recurrent pleural effusions status post left pleural catheter as well as right pleural catheter with recent replacement at [facility] now presents with shortness of
breath, pain in the back, and recurrent pleural effusions-pulmonary consulted for recurrent pleural effusions 11/24/2023.
Past Medical History
Past Medical History: None (Breast CA/mastectomy/XRT/chemotherapy-[facility]. Uterine/cervical cancer status post XRT. Recurrent bilateral pleural effusions status post bilateral Pleurx catheters. Migraines. PAF. Hypertension.)
Past Surgical History: None ( x 3. Hernia repair. Bilateral mastectomy.)
Social History
Tobacco: Former Smoker (Less than 5-pack-year quit early 20s)
Drug: None
Living: With Family
Occupational Exposures: No known asbestos exposure
Environmental Exposures: No known tuberculosis exposure
Family History
Family History: Reviewed & Not Pertinent
Allergies / Home Medications
Allergies
Allergy/AdvReac Type Severity Reaction Status Date / Time
Penicillins Allergy Anaphylaxis Verified 11/23/23 16:34
Home Medications
�Medication �Instructions �Recorded �Confirmed �Last Taken �Type
ascorbic acid (vitamin C) 500 mg 500 mg PO DAILY 06/23/23 11/23/23 11/23/23 History
tablet
carvedilol 3.125 mg tablet 3.125 mg PO BID 06/23/23 11/23/23 11/23/23 History
furosemide 20 mg tablet 20 mg PO DAILY 06/23/23 11/23/23 11/23/23 History
ondansetron 8 mg disintegrating 8 mg PO Q8H PRN nausea/vomiting 06/23/23 11/23/23 Unknown History
tablet
spironolactone 25 mg tablet 25 mg PO DAILY 09/20/23 11/23/23 11/23/23 History
albuterol sulfate 90 mcg/actuation 1 puff inhalation R Q6HPRN PRN 11/23/23 11/23/23 Unknown History
aerosol inhaler sob/wheezing
cholecalciferol (vitamin D3) 25 25 mcg PO DAILY 11/23/23 11/23/23 11/23/23 History
mcg (1,000 unit) tablet
cyanocobalamin (vitamin B-12) 1,000 mcg PO DAILY 11/23/23 11/23/23 11/23/23 History
1,000 mcg tablet
folic acid 1 mg tablet 1 mg PO DAILY 11/23/23 11/23/23 11/23/23 History
simethicone 80 mg chewable tablet 80 mg PO Q6HPRN PRN gas 11/23/23 11/23/23 Unknown History
valsartan 40 mg tablet 40 mg PO DAILY 11/23/23 11/23/23 11/23/23 History
Review of Systems
-
Unable to Obtain full review of systems at this time due to: Other (Per HPI)
Vitals / Labs / Diagnostic Testing
Vital Signs
Temp Pulse Resp BP Pulse Ox
98.2 F 90 17 117/73 95
11/24/23 09:33 11/24/23 09:33 11/24/23 09:33 11/24/23 09:33 11/24/23 09:42
Lab Data
11/24/23 06:15
11/24/23 06:15
Laboratory Results
11/23/23
20:44
PT 14.5
INR 1.15
Microbiology
11/24/23 06:16 Nose Nasal Screen MRSA (PCR) - Final
MRSA not detected - performed by PCR methodology.
Diagnostic Testing:
Physical Exam
-
Exam:
Well-nourished and well-developed in no apparent distress
HEENT-atraumatic, normocephalic
Neck-supple, no JVD, no bruit
Heart-regular rate and rhythm-no murmurs, rubs or gallops
Chest with diminished breath sounds left greater than right with few crackles, no wheezes
Back without tenderness
Abdomen-soft, nontender, nondistended, no hepatosplenomegaly
Extremities-no cyanosis, clubbing, 1+ bilateral lower extremity edema
Integument-intact, no rashes, lesions or ecchymosis
Neurology-alert and oriented, nonfocal motor and sensory exam
Assessment
-
58-year-old female with recurrent breast cancer with pulmonary metastases and bilateral recurrent pleural effusions status post left pleural catheter as well as right pleural catheter with recent replacement at [facility] now presents with shortness of
breath, pain in the back, and recurrent pleural effusions-pulmonary consulted for recurrent pleural effusions 11/24/2023.
Recurrent bilateral loculated pleural effusions
Status post left Pleurx catheter-drained 3 times weekly-averaging over 700 mL
Status post right Pleurx catheter x 2-last drainage output, previously required tPA
Bilateral consolidations/pneumonia
Immunocompromised status postchemotherapy
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
Abdominal pain secondary to abdominal ascites and probable hepatic metastases
Elevated LFTs
Bilateral lymphedema
Hyponatremia
Esbhrq-szqhyyldvv-iwezbvdqdg 9.7
Conditions present prior to admission:
Breast CA/mastectomy/XRT/chemotherapy-[facility].
Uterine/cervical cancer status post XRT.
Recurrent bilateral pleural effusions status post bilateral Pleurx catheters.
Migraines.
PAF.
Hypertension.
x 3. Hernia repair. Bilateral mastectomy.
Plan
Respiratory decompensation likely related to pneumonia and bilateral pleural effusions
Supplemental oxygen
BiPAP if needed
Noninvasive ventilation if needed
Nebulizers if needed-currently not bronchospastic
Aspiration precautions
Incentive spirometry
Mucus clearing devices
Check cultures
Sputum culture if able
Broad-spectrum antibiotics to cover immunocompromised state
Follow radiographically
Historically left pleural catheter is draining nearly 700 mL 3 times weekly-continue to drain as needed
Historically right pleural catheter which was recently replaced at [facility] has drained much less
Interventional radiology consulted for possible tPA to improve pleural fluid drainage
Analgesia for osseous metastatic disease per primary service
Monitor for oversedation
Follow liver functions
Consider oncology evaluation-has seen Dr. Rutherford in the past-currently following with [facility] oncology
Monitor hemoglobin
Transfuse as needed
DVT prophylaxis-on subcu heparin
Nutrition
Early mobilization/physical therapy
Reviewed with nursing
Diagnostic data:
Chest x-ray 10/29-NAD
Chest x-ray 03/12/2023-moderate loculated right pleural effusion which is new
CT chest 07/21/2023-negative for pulmonary embolism, pleural fluid loculated, moderate right pleural effusion, near complete consolidation basal segment right lower lobe suspicious for pneumonia, hepatic lesions
CT chest 12/12-no evidence for pulm embolism, moderate loculated bilateral pleural effusions improved on the right progressed on the left, moderate bibasilar consolidations concerning for pneumonia, findings suggestive of mild blastic osseous
metastatic disease mildly progressed, probable hepatic metastases and mild upper abdominal ascites
Thoracentesis 03/13/23-1300 mL straw-colored fluid
Tunneled pleural catheter placement 04/12/2023-asept pleural catheter placed on the right
Tunneled pleural catheter placement 06/23/2023-new tunneled catheter placed on the left
Echocardiogram 11/24/2019-EF 55-60%, stage I diastolic dysfunction, PA systolic estimated 29
Data Reviewed
-
EKG: Report reviewed by me
Radiology: Image personally visualized and interpreted and Report reviewed by me
CT Scan: Image personally visualized and interpreted and Report reviewed by me
Ultrasound: Report reviewed by me
Medical Tests (Nuc Med, Echo etc): Report reviewed by me
Labs: Labs reviewed by me
Old Records: Reviewed
Total Time Spent with Patient (in minutes): 65
--- NOTE | 2023-11-24 12:17 | PN.IRAD.UPD ---
Update Note - IRAD
- -
8mg TPA in a total volume of 50 ml 0.9% sodium chloride, 5 MG DORNASE in a total volume of 0.9 % sodium chloride instilled via right PLEURX at bed side at 1150 am . New clean,dry dressing place over site. Patient tolerated procedure well.
[2023-11-24] MEDS: VANCOCIN 275 MG IV (13:04)
[2023-11-24] MEDS: DILAUDID 0.5 MG IV ×3 (15:02→23:43)
[2023-11-24] MEDS: LOW STRENGTH ASPIRIN PO (16:20)
--- NOTE | 2023-11-24 16:20 | PN.IRAD.UPD ---
Update Note - IRAD
- -
250ml bloody pleural fluid removed via right PLEURX catheter at bedside. New clean, dry dressing placed over site. Patient tolerated procedure well.
[2023-11-24 20:29] LABS: Osmolality Urine 775 mOsm/kg (300-900)
[2023-11-24 20:40] LABS: Urine Sodium 13 mmol/L (30-90)
[2023-11-25] MEDS: DILAUDID 0.5 MG IV ×5 (03:05→22:13)
[2023-11-25] MEDS: VANCOCIN 275 MG IV (05:57)
[2023-11-25 06:50] LABS: % Basophils 0.7 % (0-2); % Eosinophils 1.9 % (0-6); % Immature Granulocytes 0.5 % (0-0.5); % Lymphocytes 6.1 % (20.5-51.1); % Monocytes 3.1 % (1.7-9.3); % Neutrophils 87.7 % (42.2-75.2); Absolute Eosinophils 0.1 10^3/uL (0-0.7); Absolute Lymphocytes 0.4 10^3/uL (1.2-3.4); Absolute Monocytes 0.2 10^3/uL (0.1-0.6); Hematocrit 29.9 % (37.0-47.0); Hemoglobin 9.9 g/dL (12.0-16.0); Mean Corp Hgb Conc. 33.1 g/dL (33.0-37.0); Mean Corpuscular Hgb 28.3 pg (27.0-31.0); Mean Corpuscular Volume 85.4 fL (81.0-99.0); Mean Platelet Volume 10.2 fL (7.4-10.4); Nucleated Red Blood Cells % 0 %; Platelet Count 329 10^3/uL (130-400); Red Cell Dist. Width 16.5 % (11.5-14.5); White Blood Cell Count 5.7 10^3/uL (4.8-10.8)
[2023-11-25 07:09] LABS: ALT (SGPT) 108 U/L (0-35); AST (SGOT) 113 U/L (14-36); Albumin 2.2 g/dl (3.5-5.0); Alkaline Phosphatase 478 U/L (38-126); Blood Urea Nitrogen 22 mg/dl (7-17); Calcium 8.2 mg/dl (8.4-10.2); Carbon Dioxide 29 mmol/L (22-30); Chloride 100 mmol/L (98-107); Estimated Creatinine Clearance 98 ml/min; Glucose 88 mg/dl (70-99); HDL Cholesterol 49 mg/dl; LDL Cholesterol, Calculated 123 mg/dl; Potassium 4.5 mmol/L (3.5-5.1); Sodium 132 mmol/L (135-145); Total Bilirubin 0.5 mg/dl (0.2-1.3); Total Cholesterol 194 mg/dl (50-199); Total Protein 4.4 g/dl (6.3-8.2); Triglyceride 110 mg/dl (10-149); Very Low Density Lipoprotein 22 mg/dl (0-30); eGFR > 60.00
[2023-11-25 07:55] VITALS: BP 102/66
[2023-11-25] MEDS: AZACTAM 2000 MG IV ×2 (08:02→17:09)
[2023-11-25] MEDS: STERILE WATER FOR INJECTION 10 ML IV ×3 (08:03→18:31)
--- NOTE | 2023-11-25 08:06 | CON.NEURO4 ---
Addendum entered and electronically signed by Steve Rosas MD 11/25/23 14:59:
I saw and evaluate the patient I reviewed the note by Sunita and agree with the findings and following comments:
88-year-old woman with past medical history of breast cancer with metastatic pleural effusions, paroxysmal atrial fibrillation, previous pulmonary embolism, hematuria, migraines presenting the hospital with shortness of breath and has been being
treated for malignant pleural effusions with pleural drains.
Patient noted to hospitalist physician right eye blurred vision which has been going on for she thinks at least several days to few weeks. It seems to be isolated to the right eye only, described as a blurring of vision. Left eye seems to be okay.
No unilateral paresthesia or unilateral weakness. She relates mother had a history of multiple strokes at an elderly age.
Patient had been known to have atrial fibrillation in the past which had been treated with beta-vicenta as well as aspirin but had not been anticoagulated to her knowledge.
Patient relates a history of migraine headaches without visual aura before menopause that improved after menopause sometimes she be associated with significant nausea and decrease in physical activity. More recently for the past several months she
has had around 15 to 30-minute episodes of a prism like vision change sometimes with the backward 'C' letter, which is not associated with headache.
Patient relates a history of hematuria and hospitalization at the [facility] and the seem to spontaneously resolve it was attributed to possibly previous radiation treatments no procedures were performed and patient was
recommended to come off her aspirin
Neurologic examination shows normal mental status
Near card testing vision is 20/20 in both eyes no hemianopia cranial nerves normal function no drift no abnormal movements
MRI brain with very small late acute to subacute ischemic stroke in the left parietal lobe.
Carotid ultrasound no stenosis, less than 50% bilaterally
Assessment:
Right eye visual changes could be a manifestation of the left-sided parietal stroke visual radiations, or could be a manifestation of her migraine visual aura. Expect that this may improve with time if it is due to stroke or could respond to
migraine treatment.
Patient's episodes of prism like vision change which are episodic and around 15 to 30 minutes represent migraine aura without headache and are benign.
Patient does have bleeding risk with the report of previous hematuria. At this time no strong contraindication to anticoagulation, she will be at risk for cardioembolic stroke with history of atrial fibrillation and now an embolic appearing stroke.
I feel that the benefits of anticoagulation outweigh the risks for stroke protection. Some degree of hypercoagulability from malignancy contributing to the etiology of stroke. Discussed my recommendations to her that she at least needs to stay on
aspirin and ideally would start anticoagulation soon.
Recommendations
-Keep on aspirin for the time being
-If okay from a procedural standpoint patient would be starting anticoagulation ideally with apixaban as soon as tomorrow, would need to monitor for hematuria and patient does have a visit with urology upcoming in the outpatient setting, would stop
aspirin at the point of starting anticoagulation
-Neurologic checks and NIH scales
-Magnesium 400 mg and Riboflavin 400 mg upon discharge may be helpful for migrain visual aura, unclear on if it will help the right eye vision change
-Expect if right eye vision change is due to the small stroke this will improve spontaneously with time, no other known treatments for this issue at this time
Original Note:
Documented by User: Sunita Kumar NP 11/25/23 14:42
Consultation - Neurology 4
-
CONSULTING PHYSICIAN: Tyrese Rosas MD
REFERRING PHYSICIAN: Hospitalists/Dr. Talbot
DICTATED BY: NORIS Mcnair
DATE/TIME OF REQUEST: 11/24/23
DATE/TIME OF CONSULTATION: 11/24/23
Reason for Consultation: CVA
History of Present Illness:
This is a 58- year-old (left/right) handed female who has presented to the hospital on 11/23/23 with reports of back pain, shortness of breath, and chest tightness. Patient has a history of breast cancer with mets to the lung, liver, bone, and
suspected left chest wall. She has metastatic b/l pleural effusions and has b/l Pleurx catheters in place and has been receiving Taxol at [facility]. Patient reports that her blood pressure was significantly elevated for 9-10 months. She attribute this to
her chemo. In July 2023 her bp was 220/140 and her blood pressure medications were adjusted. Eight months ago she reports starting to notice color prisms in her vision and a squiggly backwards C lasting about 15-20 minutes before resolving. This
can happen in her left eye or right eye. The prisms have happened about 5-6 times since they started. She was evaluated by an utilization reviewer around May 2023 who reported that her vision was 20/20 and her vision change was likely a migraine
aura.
Two weeks ago she was admitted to [facility] and while hospitalized for unexplained hematuria and her aspirin was discontinued. While hospitalized she reports noticing another prism and then her right eye vision appeared blurry, like she's looking
through a heaton-colored glass. Her right eye blurry vision has persisted since then. She denies any vision change in her left eye. She denies having any headaches with these events. She does endorse having migraine headaches associated with her
menses in her younger decades but she never had an aura. She denies any dizziness, speech/swallow difficulty, numbness, weakness, and palpitations. She reports chest discomfort and shortness of breath related to her lungs. She has a history of
paroxysmal atrial fibrillation and remote PE in 2007, she is not currently on anticoagulation, she was taking aspirin 81mg daily until three weeks ago when she had unexplained hematuria. She has used readers since she was in her 40's but otherwise
denies any chronic eye issues.
Past Medical History: Breast cancer s/p b/l mastectomy and radiation with mets to the lung, liver, bone, and suspected left chest wall involvement, metastatic b/l pleural effusions, cervical cancer, paroxysmal atrial fibrillation, PE 2007,
hyperthyroidism, home oxygen, iron deficiency anemia, benign appearing adrenal mass, migraines
Surgical History: Double mastectomy, x3, varicose vein removal, port placement, b/l pleural catheter, thoracentesis
Family History: Father- [place] age 51. Mother- multiple CVAs in an older decade of life.
Social History: Former smoker. Denies alcohol and illicit drug use.
Allergies: Penicillins.
Home Medications: See below.
Review of Symptoms:
Patient denies any fever, headache, GI or symptoms.
�Per the HPI.�All systems are reviewed negative except above.
Physical Exam:
The patient is afebrile, abdomen is nondistended, breathing is unlabored, skin is warm and dry, no edema.
NIH Stroke Scale:
I performed the NIH stroke scale on the patient on 11/25/23 at 1415. The patient scored 0 points on the NIH stroke scale assessment, which were assigned as follows: See below.
Neurologic Examination:
The patient is awake, alert and oriented x 3. She is able to follow commands and answer questions appropriately. There is no aphasia or dysarthria. On cranial nerve assessment, pupils are 3 mm bilateral, round and reactive to light and
accommodation. Visual rosenbaum are full. Visual acuity is 20/20 in the left eye and the right eye but she notes blurriness with the right eye. Extraocular movements are intact. Facial sensations are intact and bilaterally symmetrical, there is no
facial asymmetry. Hearing is intact bilaterally to normal conversation volume. Tongue palate and uvula are midline. Sternocleidomastoid strengths are full bilaterally. Motor strengths are 5/5 bilateral upper and lower extremities on medical
research [place] scale. There is no drift or involuntary movement noted. There was no extinction noted on double simultaneous stimulation. Coordination is intact by finger to nose bilaterally.
Lab Results: See below.
Neuro Imaging:
1. MRI Brain 11/24/23: Suspect tiny punctate nonhemorrhagic acute/subacute infarct in the high left parietal lobe/centrum semiovale region. Nonspecific subcentimeter focus of altered signal in the left cerebellum, possibly site of gliosis. Consider
outpatient follow-up contrast-enhanced MRI brain in 3-6 months.
2. Carotid ultrasound 11/25/23: Right carotid: Small focus of noncalcified plaque within the proximal ICA causing less than 50% luminal narrowing. Left carotid: Unremarkable appearance. No atherosclerotic plaques or areas of significant luminal
narrowing.
Differentials for the patient's presentation include:
1. Migraine aura likely producing vision changes, especially prism.
2. Tiny subacute left parietal lobe/centrum semiovale ischemic infarct, possible that this is contributing to vision change.
3. Less likely, chemotherapy producing vision disturbance.
4. Left cerebellar area concerning for lacunar infarct vs gliosis.
5. No significant carotid artery abnormality noted to explain vision change.
Patient has the following risk factors for their symptoms: Hx Aflutter, not on OAC, cancer
IV Tenecteplase/IAT candidacy: Not a candidate due to outside of time window, NIHSS 0.
Recommendations:
-Continue aspirin 81mg daily for now. Would strongly consider initiating OAC due to history of Afib and CVA demonstrated on MRI brain imaging despite bleeding risk. If OAC is initiated, would discontinue aspirin at that point. Risks/benefits of OAC
discussed with patient.
-Goal normotension.
-TTE pending.
-Initiate magnesium 400mg and riboflavin 400mg PO daily for headache prevention.
-LDL goal <70. LDL is 123. Liver enzymes are elevated, statin therapy contraindicated. Pursue PCSK9 inhibitor options as an outpatient.
-Goal normoglycemia, hbA1c is pending.
-NIHSS and neurological checks per unit guidelines.
-Provide patient with a stroke education packet.
-PT/OT/ST evaluations.
-DVT prophylaxis.
Discussed patient care with: Dr. Rosas, the patient
Vital Signs and Labs
-
Vital Signs and Labs:
Vital Signs
Temp Pulse Resp BP Pulse Ox
98.4 F 88 18 103/67 98
11/24/23 22:43 11/24/23 22:43 11/24/23 22:43 11/24/23 22:43 11/24/23 22:43
Lab Results
11/25/23 06:19
11/25/23 06:19
PT 14.5 Sec (11.4-14.6) 11/23/23 20:44
INR 1.15 11/23/23 20:44
Sodium 132 mmol/L (135-145) L 11/25/23 06:19
Potassium 4.5 mmol/L (3.5-5.1) 11/25/23 06:19
BUN 22 mg/dl (7-17) H 11/25/23 06:19
Glucose 88 mg/dl (70-99) 11/25/23 06:19
Calcium 8.2 mg/dl (8.4-10.2) L 11/25/23 06:19
Fdk-C-Ganheyoiqsd Pept 170 pg/ml 11/23/23 18:21
LDL Cholesterol, Calc 123 mg/dl 11/25/23 06:19
Medications
-
Active Medications
Generic Name Dose Route Start Last Admin
Trade Name Freq PRN Reason Stop Dose Admin
Albuterol 1 puff 11/23/23 23:37
Albuterol Hfa [90 Mcg/Dose] Inhaler INH
R Q6HPRN PRN
sob/wheezing
Protocol
Ascorbic Acid 500 mg 11/24/23 08:00 11/24/23 09:18
Ascorbic Acid 500 Mg Tablet PO 12/22/23 07:59 500 mg
DAILY SAM Administration
Aspirin 81 mg 11/24/23 16:00 11/24/23 16:20
Aspirin 81 Mg Chewable Tablet PO 12/22/23 15:59 Not Given
DAILY SAM
Atorvastatin Calcium 10 mg 11/24/23 18:00 11/24/23 20:17
Atorvastatin (Lipitor) 10 Mg Tablet PO 12/22/23 17:59 Not Given
QPM SAM
Aztreonam 2,000 mg 11/24/23 08:00 11/24/23 23:42
Aztreonam 2,000 Mg/10 Ml Vial IV 2,000 mg
Q8 SAM Administration
Carvedilol 3.125 mg 11/24/23 08:00 11/24/23 20:17
Carvedilol 3.125 Mg Tablet PO 12/22/23 07:59 3.125 mg
BID SAM Administration
Cholecalciferol 25 mcg 11/24/23 08:00 11/24/23 09:19
Cholecalciferol (Vitamin D3) 25 Mcg Tablet (1,000 Units) PO 12/22/23 07:59 25 mcg
DAILY SAM Administration
Cyanocobalamin 1,000 mcg 11/24/23 08:00 11/24/23 09:19
Cyanocobalamin 1,000 Mcg Tablet PO 12/22/23 07:59 1,000 mcg
DAILY SAM Administration
Folic Acid 1 mg 11/24/23 08:00 11/24/23 09:20
Folic Acid 1 Mg Tablet PO 12/22/23 07:59 1 mg
DAILY SAM Administration
Furosemide 20 mg 11/24/23 08:00 11/24/23 09:20
Furosemide 20 Mg Tablet PO 12/22/23 07:59 20 mg
DAILY SAM Administration
Heparin Sodium 5,000 units 11/24/23 08:00 11/24/23 09:20
Heparin 5,000 Units/Ml 1 Ml Vial SC 12/22/23 07:59 5,000 units
Q12 SAM Administration
Heparin Sodium (Porcine) 500 unit 11/25/23 06:21
Heparin Flush Pf (100 Unit/Ml) 5 Ml Syringe IV 12/23/23 06:20
PRN PRN
subq port flush protocol
Hydromorphone HCl 0.5 mg 11/24/23 14:34 11/25/23 06:22
Hydromorphone 0.5 Mg/0.5 Ml Syringe IV 12/08/23 14:33 0.5 mg
Q3HPRN PRN Administration
severe pain
Vancomycin HCl 1,250 mg/ 275 mls @ 183.33 mls/hr 11/25/23 06:00 11/25/23 05:57
Sodium Chloride IV 275 mls
Q12@0600,1800 SAM Administration
Protocol
Ondansetron HCl 8 mg 11/23/23 23:45
Ondansetron 4 Mg Tablet PO 12/21/23 23:44
Q8HPRN PRN
nausea/vomiting
Simethicone 80 mg 11/23/23 23:37
Simethicone 80 Mg Chewable Tablet PO 12/21/23 23:36
Q6HPRN PRN
gas
Sodium Chloride 0 flush 11/23/23 23:00
Sodium Chloride 0.9% (Flush) Syringe IV 12/21/23 22:59
PER PROTOCOL SAM
Spironolactone 25 mg 11/24/23 08:00 11/24/23 09:18
Spironolactone 25 Mg Tablet PO 12/22/23 07:59 25 mg
DAILY SAM Administration
Sterile Water 10 ml 11/24/23 08:00 11/24/23 23:42
Sterile Water For Injection 10 Ml Vial IV 12/22/23 07:59 10 ml
Q8 SAM Administration
Valsartan 40 mg 11/24/23 08:00 11/24/23 09:18
Valsartan 40 Mg Tablet PO 12/22/23 07:59 40 mg
DAILY SAM Administration
Home Medications
�Medication �Instructions �Recorded
ascorbic acid (vitamin C) 500 mg 500 mg PO DAILY 06/23/23
tablet
carvedilol 3.125 mg tablet 3.125 mg PO BID 06/23/23
furosemide 20 mg tablet 20 mg PO DAILY 06/23/23
ondansetron 8 mg disintegrating 8 mg PO Q8H PRN nausea/vomiting 06/23/23
tablet
spironolactone 25 mg tablet 25 mg PO DAILY 09/20/23
albuterol sulfate 90 mcg/actuation 1 puff inhalation R Q6HPRN PRN 11/23/23
aerosol inhaler sob/wheezing
cholecalciferol (vitamin D3) 25 25 mcg PO DAILY 11/23/23
mcg (1,000 unit) tablet
cyanocobalamin (vitamin B-12) 1,000 mcg PO DAILY 11/23/23
1,000 mcg tablet
folic acid 1 mg tablet 1 mg PO DAILY 11/23/23
simethicone 80 mg chewable tablet 80 mg PO Q6HPRN PRN gas 11/23/23
valsartan 40 mg tablet 40 mg PO DAILY 11/23/23
NIH Stroke Score
Subsequent NIH Scale
Date of Subsequent NIH Scale: 11/25/23
Time of Subsequent NIH Scale: 14:15
NIH Stroke Score
Level of Consciousness: 0 - Alert
LOC Questions: 0-Answers both correctly
LOC Commands: 0-Performs both correctly
Best Horizontal Gaze: 0-Normal
Visual Rosenbaum: 0=Normal, no visual loss
Facial Palsy: 0=Normal, symmetrical
Motor - Right Arm: 0=No drift 10 seconds
Motor - Left Arm: 0=No drift 10 seconds
Motor - Right Le-No drift 5 seconds
Motor - Left Le-No drift 5 seconds
Limb Ataxia: 0-Absent
Sensation: 0-Normal
Best Language: 0-No aphasia
Dysarthria: 0-Normal
Extinction and Inattention: 0-No abnormality
Total Score:: 0
Modified Deborah (mRS) Score
Modified [place] Scale (mRS): No significant disability. Able to carry out usual activities.
Score: 1

Documented by User: Steve Rosas MD 11/25/23 14:50
NIH Stroke Score
NIH Stroke Score
Total Score:: 0
Modified [place] (mRS) Score
Score: 1
[2023-11-25] MEDS: COREG 3.125 MG PO ×2 (08:25→20:40)
[2023-11-25] MEDS: LOW STRENGTH ASPIRIN PO ×2 (08:25→08:35)
[2023-11-25] MEDS: ALDACTONE PO ×2 (08:25→08:35)
[2023-11-25] MEDS: VITAMIN D3 (cholecalciferol) 25 MCG PO (08:25)
[2023-11-25] MEDS: FOLVITE 1 MG PO (08:25)
[2023-11-25] MEDS: VITAMIN B-12 1000 MCG PO (08:25)
[2023-11-25] MEDS: VITAMIN C 500 MG PO (08:25)
[2023-11-25] MEDS: LASIX PO ×2 (08:25→08:35)
[2023-11-25] MEDS: DIOVAN 40 MG PO (08:25)
--- NOTE | 2023-11-25 08:40 | PHA.VAN.FU ---
Vancomycin Assessment / Plan
- Assessment
Renal Function: Stable
WBC's are: WNL
In the past 24 hrs, patient has been: Afebrile
Concomitant Antimicrobials: aztreonam
- Dosing Plan
Continue: Vanc 1250mg Q12H
- Monitoring Plan
No level(s) ordered at this time: consider levels in next few days
- Follow Up
Pharmacy will continue to follow.
Vancomycin Follow UP
- -
Patient Age: 58
Patient Sex: Female
Vancomycin Day #: 2
Indication: Pulmonary/Respiratory
Requesting Provider: Dr. Huntley
Pertinent Antimicrobial Allergies:
penicillins - anaphylaxis
Height / Weight:
Height 5 ft 6 in
Actual Weight 70.959 kg
Pertinent Past Medical History: Breast cancer with pulm mets
- Vital Signs / Lab Results
Temp Pulse Resp BP Pulse Ox
97.8 F 80 18 102/66 97
11/25/23 07:55 11/25/23 07:55 11/25/23 07:55 11/25/23 07:55 11/25/23 07:55
Lab Results - Hematology
11/23/23 11/24/23 11/25/23
18:21 06:15 06:19
WBC 9.6 6.9 5.7
Lab Results - Chemistry
11/23/23 11/24/23 11/25/23
18:21 06:15 06:19
BUN 21 H 22 H 22 H
Creatinine 0.6 0.5 L 0.5 L
Estimated Creat Clear 98 98 98
Albumin 2.5 L 2.2 L 2.2 L
11/23/23
21:15
Lactic Acid 1.2
Microbiology Results
11/23/23 22:12 Blood Culture - Preliminary
Blood/Venous No Growth in 24 hours- Final report to follow
11/23/23 21:15 Blood Culture - Preliminary
Blood/Venous No Growth in 24 hours- Final report to follow
11/24/23 06:16 Nasal Screen MRSA (PCR) - Final
Nose MRSA not detected - performed by PCR methodology.
[2023-11-25 09:03] VITALS: BP 111/78; PULSE 88; O2SAT 98
--- NOTE | 2023-11-25 09:16 | W.PN.HOSP.TC ---
Today's Communication/Plan
-
IV antibiotics. Aspirin.
Assessment / Plan
Assessment / Plan
Physical Exam
General: Acutely ill
HEENT: NormoCephalic, Moist mucous membranes and Atraumatic
Respiratory: Decreased Breath Sounds
Cardiac: S1/S2, Regular Rhythm and Peripheral Edema; No Murmur or Rub
GI: Soft, Non Tender, Non Distended and Normal Bowel Sounds; No Organomegaly
Rectal: Deferred by Provider
Musculoskeletal: No Clubbing, No Cyanosis and No Edema
Skin: No Rash
Neuro: Alert oriented x 3. Left eye all quadrants intact. Right eye loss of vision on all quadrants. Strength 4 out of 5 all 4 extremities.
A/P:
# Acute hypoxic respiratory insufficiency
# Moderate loculated bilateral likely malignant pleural effusions, progressed on the left, improved on the right
# Right sided Pleurx catheter with minimal drainage placed the dorsum
# Left-sided pleural catheter with moderate drainage placed at [facility]
-IR consulted for tPA of the right Pleurx catheter. S/p right pleural lysis on 11/23.
-Pulmonology consulted and appreciated input
-Oncology consulted and appreciated input.
-PT OT eval
-Discussed with daughter in detail, who is an BUNDLE TIER
# Moderate bibasilar consolidation concerning for pneumonia progressed on the left in the setting of immunocompromise status due to chemotherapy
-Check blood cultures
-Vancomycin/aztreonam
-ID consult
# Right visual loss--> stroke related and possible component of migraine
-Out of the time window for tPA/TNK
-MRI of the brain confirms stroke in the left parietal lobe/centrum semiovale
-Continue aspirin and consideration for changing to Eliquis. Patient has reservations even with aspirin at this point.
-No statins given elevated LFTs.
-Ultrasound carotids no significant stenosis
-Reviewed echocardiogram
# Upper back pain likely due to blastic osseous metastatic disease
-Upper back pain is nonspecific
-Morphine for pain
# Abdominal pain secondary to mild upper abdominal ascites/probable hepatic metastases
# Transaminitis secondary to likely hepatic metastases
-Continue spironolactone
-Continue Lasix
# Bilateral lymphedema secondary to prior uterine radiation/venous insufficiency/hypoalbuminemia
-Continue Lasix/Spironolactone
-Patient reportedly had venous ultrasounds most recently 2 months ago which were negative for DVT
-Continue compression
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
-Check urine sodium, osmolality
-Fluid restriction 40 ounces
Breast cancer status postmastectomy and/radiation, received chemotherapy yesterday
Uterine cancer/cervical cancer status post radiation
Paroxysmal atrial fibrillation
-Continue Coreg
-Continue aspirin
Essential hypertension
-Continue losartan
History of migraines
Full code
DVT prophylaxis�heparin on hold due to concerns for bleeding use of recent thrombolytics and use of antiplatelets but will restart tomorrow or switch to DOAC.
Regular diet
Total time spent on today's encounter was 52 minutes which included time spent in counseling the patient/family regarding diagnosis and treatment plan as listed above, goals of care, and symptom management. Case was discussed with nursing staff,
specialists, and care coordinators/case management. All labs and imaging personally reviewed by me. Remainder the time spent in detailed review of previous records, lab data, imaging, and other medical provider documentation.
Anticipated Discharge: > 48 hours
Subjective/Interval History
-
Date of Service: November 25, 2023
Patient still has right eye vision loss, still with shortness of breath, afebrile.
Objective Data
-
Labs:
Laboratory Results
11/25/23
06:19
WBC 5.7
Hgb 9.9 L
Hct 29.9 L
Plt Count 329
Sodium 132 L
Potassium 4.5
Chloride 100
Carbon Dioxide 29
BUN 22 H
Creatinine 0.5 L
Glucose 88
Calcium 8.2 L
Total Bilirubin 0.5
AST 113 H
ALT 108 H
Alkaline Phosphatase 478 H
Vital Signs:
Vital Signs
Temp Pulse Resp BP Pulse Ox
97.8 F 80 18 102/66 97
11/25/23 07:55 11/25/23 07:55 11/25/23 07:55 11/25/23 07:55 11/25/23 07:55
--- NOTE | 2023-11-25 09:30 | W.PN.PUL.V3 ---
Today's Communication / Plan
-
Wean oxygen.
Incentive spirometry.
Drain Pleurx catheters.
Antibiotics.
Follow occasionally radiographically
Assessment
-
58-year-old female with recurrent breast cancer with pulmonary metastases and bilateral recurrent pleural effusions status post left pleural catheter as well as right pleural catheter with recent replacement at [facility] now presents with shortness of
breath, pain in the back, and recurrent pleural effusions-pulmonary consulted for recurrent pleural effusions 11/24/2023.
Recurrent bilateral loculated pleural effusions
Status post left Pleurx catheter-drained 3 times weekly-averaging over 700 mL
Status post right Pleurx catheter x 2-last drainage output, previously required tPA
Status post TPA/right pleural lysis 11/24/23
Bilateral consolidations/pneumonia
Immunocompromised status postchemotherapy
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
Abdominal pain secondary to abdominal ascites and probable hepatic metastases
Elevated LFTs
Bilateral lymphedema
Hyponatremia
Oflzjj-[id number]-[id number] 9.7
Acute CVA
Conditions present prior to admission:
Breast CA/mastectomy/XRT/chemotherapy-[facility].
Uterine/cervical cancer status post XRT.
Recurrent bilateral pleural effusions status post bilateral Pleurx catheters.
Migraines.
PAF.
Hypertension.
x 3. Hernia repair. Bilateral mastectomy.
Plan
Respiratory decompensation likely related to pneumonia and bilateral pleural effusions
Supplemental oxygen
BiPAP if needed
Noninvasive ventilation if needed
Nebulizers if needed-currently not bronchospastic
Aspiration precautions
Incentive spirometry
Mucus clearing devices
Check cultures
Sputum culture if able
Broad-spectrum antibiotics to cover immunocompromised state.
Visual changes, and right eye.
Brain MRI 11/24/23-suspect tiny punctate nonhemorrhagic acute/subacute infarct high left parietal lobe/central semi-ovale region
Neurology evaluation.
Consider anticoagulation
Follow radiographically
Historically left pleural catheter is draining nearly 700 mL 3 times weekly-continue to drain as needed-I will contact interventional radiology for thrice weekly left Pleurx drainage
Historically right pleural catheter which was recently replaced at [facility] has drained much less
Interventional radiology-right pleural lysis/TPA 11/24/23
Analgesia for osseous metastatic disease per primary service
Monitor for oversedation
Follow liver functions
Consider oncology evaluation-has seen Dr. Rutherford in the past-currently following with [facility] oncology
Monitor hemoglobin
Transfuse as needed
DVT prophylaxis-on subcu heparin
Nutrition
Early mobilization/physical therapy
Reviewed with nursing
Diagnostic data:
Chest x-ray 10/29-NAD
Chest x-ray 03/12/2023-moderate loculated right pleural effusion which is new
CT chest 07/21/2023-negative for pulmonary embolism, pleural fluid loculated, moderate right pleural effusion, near complete consolidation basal segment right lower lobe suspicious for pneumonia, hepatic lesions
CT chest 12/12-no evidence for pulm embolism, moderate loculated bilateral pleural effusions improved on the right progressed on the left, moderate bibasilar consolidations concerning for pneumonia, findings suggestive of mild blastic osseous
metastatic disease mildly progressed, probable hepatic metastases and mild upper abdominal ascites
Thoracentesis 03/13/23-1300 mL straw-colored fluid
Tunneled pleural catheter placement 04/12/2023-asept pleural catheter placed on the right
Tunneled pleural catheter placement 06/23/2023-new tunneled catheter placed on the left
Echocardiogram 11/24/2019-EF 55-60%, stage I diastolic dysfunction, PA systolic estimated 29
Subjective Data
-
Date of Service:
Date of Service: November 25, 2023
Chief Complaint: Pulmonary Follow Up and Dyspnea Follow Up
Subjective:
Still with significant shortness of breath, improved after right-sided thoracentesis, is due for left-sided Pleurx catheter fluid drainage, no abdominal pain
Review of Systems
General: Other ( per HPI)
Objective Data
Data Reviewed
Vital Signs / I&O:
Vital Signs
Temp Pulse Resp BP Pulse Ox
97.8 F 80 18 102/66 97
11/25/23 07:55 11/25/23 07:55 11/25/23 07:55 11/25/23 07:55 11/25/23 07:55
SaO2: 97
Nasal Cannula flow liters per minute: 2.5
Physical Exam
General: Respiratory Distress (n)
HEENT: Normocephalic and Anicteric
Respiratory: Clear ( diminished breath sounds, left greater than right base), Crackles (. Few basilar), Rhonchi (n), Non-Labored Respirations, Accessory Resp Muscle Use (n) and Stridor (n)
GI: Soft, Non Distended and Non Tender
Neurology: Awake, Alert, Oriented, AO x 3, No Motor Deficits, Tremors, Unresponsive, Lethargic, Non Verbal, Depressed, Other and Other
Skin: Warm, Good Color, Cyanosis (n), Jaundice (n) and Rash (n)
Labs/Micro/Reports
Lab Data
11/25/23 06:19
11/25/23 06:19
Microbiology
11/23/23 22:12 Blood/Venous Blood Culture - Preliminary
No Growth in 24 hours- Final report to follow
11/23/23 21:15 Blood/Venous Blood Culture - Preliminary
No Growth in 24 hours- Final report to follow
11/24/23 06:16 Nose Nasal Screen MRSA (PCR) - Final
MRSA not detected - performed by PCR methodology.
--- NOTE | 2023-11-25 09:37 | CON.ONC ---
Impression
Impression
Breast CA/mastectomy/XRT/chemotherapy-[facility]
History of stage III cervical carcinoma
Acute CVA
Recurrent bilateral loculated pleural effusions
Status post left Pleurx catheter-drained 3 times weekly-averaging over 700 mL
Status post right Pleurx catheter x 2-last drainage output, previously required tPA
Bilateral consolidations/pneumonia
Immunocompromised status postchemotherapy
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
Abdominal pain secondary to abdominal ascites and probable hepatic metastases
Elevated LFTs
Bilateral lymphedema
Hyponatremia
Okyyju-sptdwjftcf-bszcvovajz 9.7
Migraines
Remote PE
PAF
Hypertension
Plan
Plan
Acute embolic CVA no [employer] mets noted
MBC presenting as recurrent pleural effusion, hepatic and bone metastases poorly controlled with Taxol will likely need to consider alternate therapy
Reevaluated pleural fluid for cytology and IHC for HER-2 negative -03/13
Will likely need anticoagulation
Consult neurology
Hyponatremia improving
Patient has been historically noncompliant
Will follow offered to return to the office and comanage with [facility]
Patient History
History of Present Illness
Eufemia Marr is a pleasant 58-year-old female well-known to me with a history of ER positive HER2 negative breast cancer initially diagnosed in 1999 now with recurrent metastatic disease. She has been reluctant to follow standard of care
recommendations in the adjuvant setting and was refusing systemic therapy but has been plagued with respiratory insufficiency associated with recurrent pleural effusion. She has had bilateral Pleurx catheters and has been recently receiving Taxol
at the [facility] under the care of Ada Arana at [facility].
She is also reported visual change in the right eye which descriptively appears consistent with hemianopsia likely reflecting ischemic embolic event. she has had difficulty with her 2 most recent Taxol infusions that she developed severe back and
abdominal cramping. She has drained the left Pleurx catheter daily and the right weekly. She continues to to have dyspnea requiring oxygen. She is complaining complaining of increasing swelling particularly in the lower extremities. She has a
history of pulmonary embolus and atrial fibrillation in the past.
Past-Medical/Surgical History
Past Medical History
Past Medical History: None (Breast CA/mastectomy/XRT/chemotherapy-[facility]. Uterine/cervical cancer status post XRT. Recurrent bilateral pleural effusions status post bilateral Pleurx catheters. Migraines. PAF. Hypertension. Remote PE 2007)
Past Surgical History: None ( x 3. Hernia repair. Bilateral mastectomy.)
Social History
Tobacco: Former Smoker (Less than 5-pack-year quit early 20s)
Drug: None
Living: With Family
Occupational Exposures: No known asbestos exposure
Environmental Exposures: No known tuberculosis exposure
Family History
Family History: Reviewed & Not Pertinent
Patient Medication
�Medication �Instructions �Recorded �Confirmed �Last Taken �Type
ascorbic acid (vitamin C) 500 mg 500 mg PO DAILY 06/23/23 11/23/23 11/23/23 History
tablet
carvedilol 3.125 mg tablet 3.125 mg PO BID 06/23/23 11/23/23 11/23/23 History
furosemide 20 mg tablet 20 mg PO DAILY 06/23/23 11/23/23 11/23/23 History
ondansetron 8 mg disintegrating 8 mg PO Q8H PRN nausea/vomiting 06/23/23 11/23/23 Unknown History
tablet
spironolactone 25 mg tablet 25 mg PO DAILY 09/20/23 11/23/23 11/23/23 History
albuterol sulfate 90 mcg/actuation 1 puff inhalation R Q6HPRN PRN 11/23/23 11/23/23 Unknown History
aerosol inhaler sob/wheezing
cholecalciferol (vitamin D3) 25 25 mcg PO DAILY 11/23/23 11/23/23 11/23/23 History
mcg (1,000 unit) tablet
cyanocobalamin (vitamin B-12) 1,000 mcg PO DAILY 11/23/23 11/23/23 11/23/23 History
1,000 mcg tablet
folic acid 1 mg tablet 1 mg PO DAILY 11/23/23 11/23/23 11/23/23 History
simethicone 80 mg chewable tablet 80 mg PO Q6HPRN PRN gas 11/23/23 11/23/23 Unknown History
valsartan 40 mg tablet 40 mg PO DAILY 11/23/23 11/23/23 11/23/23 History
Active Medications
Generic Name Dose Route Start Last Admin
Trade Name Freq PRN Reason Stop Dose Admin
Albuterol 1 puff 11/23/23 23:37
Albuterol Hfa [90 Mcg/Dose] Inhaler INH
R Q6HPRN PRN
sob/wheezing
Protocol
Ascorbic Acid 500 mg 11/24/23 08:00 11/25/23 08:25
Ascorbic Acid 500 Mg Tablet PO 12/22/23 07:59 500 mg
DAILY SAM Administration
Aspirin 81 mg 11/24/23 16:00 11/25/23 08:35
Aspirin 81 Mg Chewable Tablet PO 12/22/23 15:59 Not Given
DAILY SAM
Atorvastatin Calcium 10 mg 11/24/23 18:00 11/24/23 20:17
Atorvastatin (Lipitor) 10 Mg Tablet PO 12/22/23 17:59 Not Given
QPM SAM
Aztreonam 2,000 mg 11/24/23 08:00 11/25/23 08:02
Aztreonam 2,000 Mg/10 Ml Vial IV 2,000 mg
Q8 SAM Administration
Carvedilol 3.125 mg 11/24/23 08:00 11/25/23 08:25
Carvedilol 3.125 Mg Tablet PO 12/22/23 07:59 3.125 mg
BID SAM Administration
Cholecalciferol 25 mcg 11/24/23 08:00 11/25/23 08:25
Cholecalciferol (Vitamin D3) 25 Mcg Tablet (1,000 Units) PO 12/22/23 07:59 25 mcg
DAILY SAM Administration
Cyanocobalamin 1,000 mcg 11/24/23 08:00 11/25/23 08:25
Cyanocobalamin 1,000 Mcg Tablet PO 12/22/23 07:59 1,000 mcg
DAILY SAM Administration
Folic Acid 1 mg 11/24/23 08:00 11/25/23 08:25
Folic Acid 1 Mg Tablet PO 12/22/23 07:59 1 mg
DAILY SAM Administration
Furosemide 20 mg 11/24/23 08:00 11/25/23 08:35
Furosemide 20 Mg Tablet PO 12/22/23 07:59 Not Given
DAILY SAM
Heparin Sodium 5,000 units 11/24/23 08:00 11/24/23 09:20
Heparin 5,000 Units/Ml 1 Ml Vial SC 12/22/23 07:59 5,000 units
Q12 SAM Administration
Heparin Sodium (Porcine) 500 unit 11/25/23 06:21 11/25/23 08:03
Heparin Flush Pf (100 Unit/Ml) 5 Ml Syringe IV 12/23/23 06:20 500 unit
PRN PRN Administration
subq port flush protocol
Hydromorphone HCl 0.5 mg 11/24/23 14:34 11/25/23 06:22
Hydromorphone 0.5 Mg/0.5 Ml Syringe IV 12/08/23 14:33 0.5 mg
Q3HPRN PRN Administration
severe pain
Vancomycin HCl 1,250 mg/ 275 mls @ 183.33 mls/hr 11/25/23 06:00 11/25/23 05:57
Sodium Chloride IV 275 mls
Q12@0600,1800 SAM Administration
Protocol
Ondansetron HCl 8 mg 11/23/23 23:45
Ondansetron 4 Mg Tablet PO 12/21/23 23:44
Q8HPRN PRN
nausea/vomiting
Simethicone 80 mg 11/23/23 23:37
Simethicone 80 Mg Chewable Tablet PO 12/21/23 23:36
Q6HPRN PRN
gas
Sodium Chloride 0 flush 11/23/23 23:00
Sodium Chloride 0.9% (Flush) Syringe IV 12/21/23 22:59
PER PROTOCOL SAM
Spironolactone 25 mg 11/24/23 08:00 11/25/23 08:35
Spironolactone 25 Mg Tablet PO 12/22/23 07:59 Not Given
DAILY SAM
Sterile Water 10 ml 11/24/23 08:00 11/25/23 08:03
Sterile Water For Injection 10 Ml Vial IV 12/22/23 07:59 10 ml
Q8 SAM Administration
Valsartan 40 mg 11/24/23 08:00 11/25/23 08:25
Valsartan 40 Mg Tablet PO 12/22/23 07:59 40 mg
DAILY SAM Administration
Review of Systems
-
12 point review of systems fails to elicit additional complaints today other than those reviewed in the HPI.
Physical Exam
-
Physical Exam
Well-nourished and well-developed in no apparent distress
HEENT-atraumatic, normocephalic
Neck-supple, no JVD, no bruit
Heart-regular rate and rhythm-
Chest with diminished breath sounds left greater than right with few crackles, no wheezes
Back without tenderness
Abdomen-soft, nontender, nondistended, no hepatosplenomegaly
Extremities-no cyanosis, clubbing, 1+ bilateral lower extremity edema
Integument-intact, no rashes, lesions or ecchymosis
Neurology-alert and oriented, nonfocal motor and sensory exam
Labs
Lab Results
WBC 5.7 10^3/uL (4.8-10.8) 11/25/23 06:19
RBC 3.50 10^6/uL (4.20-5.40) L 11/25/23 06:19
Hgb 9.9 g/dL (12.0-16.0) L 11/25/23 06:19
Hct 29.9 % (37.0-47.0) L 11/25/23 06:19
MCV 85.4 fL (81.0-99.0) 11/25/23 06:19
MCH 28.3 pg (27.0-31.0) 11/25/23 06:19
MCHC 33.1 g/dL (33.0-37.0) 11/25/23 06:19
RDW 16.5 % (11.5-14.5) H 11/25/23 06:19
Plt Count 329 10^3/uL (130-400) 11/25/23 06:19
MPV 10.2 fL (7.4-10.4) 11/25/23 06:19
Abs Immat Gran (auto) 0.0 10^3/uL (0-0.05) 11/25/23 06:19
Absolute Neuts (auto) 5.0 10^3/uL (1.4-6.5) 11/25/23 06:19
Absolute Lymphs (auto) 0.4 10^3/uL (1.2-3.4) L 11/25/23 06:19
Absolute Monos (auto) 0.2 10^3/uL (0.1-0.6) 11/25/23 06:19
Absolute Eos (auto) 0.1 10^3/uL (0-0.7) 11/25/23 06:19
Absolute Basos (auto) 0.0 10^3/uL (0-0.2) 11/25/23 06:19
Immature Gran % 0.5 % (0-0.5) 11/25/23 06:19
Neutrophils % 87.7 % (42.2-75.2) H 11/25/23 06:19
Lymphocytes % 6.1 % (20.5-51.1) L 06/06/24 06:19
Monocytes % 3.1 % (1.7-9.3) 11/25/23 06:19
Eosinophils % 1.9 % (0-6) 11/25/23 06:19
Basophils % 0.7 % (0-2) 11/25/23 06:19
Creatinine 0.5 mg/dL (0.6-1.0) L 11/25/23 06:19
Vital Signs
Vital Signs
Temp Pulse Resp BP Pulse Ox
97.8 F 80 18 102/66 97
11/25/23 07:55 11/25/23 07:55 11/25/23 07:55 11/25/23 07:55 11/25/23 09:30
[2023-11-25 09:42] VITALS: BP 111/78; PULSE 87; O2SAT 98
--- NOTE | 2023-11-25 11:57 | VNURNOTE ---
Patient is current with [facility] since 04/14/2023, with SN only, will monitor progress and plan at discharge.
--- NOTE | 2023-11-25 13:39 | PTOTSP ---
ST Acute Care Evaluation
Pt displays fairly functional oropharyngeal and esophageal parameters for safe ingestion of all solids and liquids. Pt is at an elevated aspiration risk given her increased O2 demands, increased RR with mastication, as well as c/o esophageal
retention with dry solids. Recommending brief f/u by OPERATING ROOM TECH to ensure pt understands/implements compensatory strategies to maintain her airway safety.
Pt demonstrates fairly functional cognitive linguistic skills at this time. Pt self-reports some intermittent confusion, which she attributes to lack of sleep and chemotherapy, but is able to perform most tasks with minimal difficulty. Pt can be
occasionally impulsive with her responses/completion of tasks, but displays great insight as to when she should stop to check herself/her work to ensure she is providing the correct responses.
Recommendations:
- Continue with REGULAR SOLIDS, THIN LIQUIDS, with meds as tolerated.
- General aspiration precautions: HOB fully upright for all PO intake, small bites/sips, alternate solids/liquids, take breaks/pauses to breath between bites and stop eating if you are took out of breath.
- OPERATING ROOM TECH to f/u re: pt's tolerance of diet and recall/implementation of compensatory strategies.
- Continue to monitor cognitive status for any other acute changes.
--- NOTE | 2023-11-25 14:42 | CM ---
manager file reviewed patient's chart and met with patient and patient lives with her spouse and daughter in a 1 story home, patient is independent with adl's and ambulation, patient has home oxygen from [facility] [employer] per patient. Patient
has a prescription plan and uses [facility] pharmacy.
PCP: Cheli Trujillo
Plan; Home with [facility] with resumption of care.
[2023-11-25 14:48] LABS: Glycohemoglobin (HgbA1c) 5.5 % (4.0-5.6)
[2023-11-25 15:30] VITALS: BP 109/72
[2023-11-25 15:41] LABS: TSH Reflex To Free T4 3.29 uIU/ml (0.47-4.68)
[2023-11-25 16:16] LABS: Vitamin B12 > 1000 pg/ml (239-931)
[2023-11-25] MEDS: ALDACTONE 25 MG PO (17:11)
[2023-11-25] MEDS: LASIX 20 MG PO (17:11)
--- NOTE | 2023-11-25 17:11 | CON.ID ---
Consultation
-
Date/Time Consultation Requested: November 25, 2023 0938
Date/Time Consultation Performed: November 25, 2023 1530
Requesting Provider: Dr. Rex Talbot
Performing Provider: Dr. Amira Chong
Reason for Consultation: pneumonia, penicillin allergy
Chief Complaint / Past History
Chief Complaint
Shortness of breath, upper back pain
History of Present Illness
58-year-old female with metastatic breast cancer to bone, possible liver, lungs, malignant pleural effusions with bilateral Pleurx catheter remains on chemo Paclitaxel last received 11/21 at [facility], history of cervical cancer status post chemoradiation,
paroxysmal atrial fibrillation on ASA who presented to the hospital on November 22 complaining of decreased output from right Pleurx catheter, worsening shortness of breath, and worsening upper back pain. Patient has had difficulty with the right Pleurx
catheter requiring tPA in the past. Chest CT showed moderate likely bilateral pleural effusions, improved on the right, progressed on the left, moderate bibasilar consolidation, mild bilateral upper lobe opacities due on the left, positive blastic
osseous metastatic disease mildly progressed, probable hepatic metastases. Patient was started on vancomycin and aztreonam. She underwent right pleural lysis yesterday. Patient also noted to have acute right vision loss and brain MRI showed tiny
punctate nonhemorrhagic acute/subacute infarct on the high left parietal lobe. Echocardiogram no gross thrombus or vegetation. She was recently hospitalized at [facility] November 06 to November 13 with gross hematuria and recovered Enterococcus faecalis as well
as Enterobacter from the urine. CAT scan urogram showed tissue throughout the right ureter concerning for malignancy, right severe hydronephrosis and new left hydronephrosis. The aspirin was held. she was treated with a course of cefepime then
transition to outpatient levofloxacin with end date of November 16. During that hospitalization, the right Pleurx catheter was exchanged on November 11. Patient denies fevers. Shortness of breath slightly improved. Still with the upper back pain. No
dysuria or urgency. Regarding penicillin allergy, she develop itching, rash and mild throat swelling.
Past History
Additional Past Medical History:
Metastatic breast cancer status post bilateral mastectomy, radiation, chemotherapy
Malignant bilateral pleural effusions with bilateral Pleurx catheters
Chronic hypoxic resp failure on 2L home O2
History of stage III cervical cancer status post chemotherapy and radiation (2020)
Paroxysmal atrial fibrillation
Hypertension
Migraine headaches
Hernia repair
Lymphedema
Allergy History:
Penicillins Allergy (Verified 11/23/23 16:34)
Anaphylaxis
Medications Reviewed: Yes
Current Antibiotics:
Vancomycin
Aztreonam
Social History
Tobacco: Former Smoker
Alcohol: None
Drug: None
Living: With Family
Family History
Family History: Not Pertinent
Review of Systems
Review of Systems
General: Negative Fever or Chills
Respiratory: Dyspnea and Cough
Genital / Urological: Negative Dysuria or Flank Pain
Endocrine: Weakness
Vital Signs
Temp Pulse Resp BP Pulse Ox
98.2 F 81 18 109/72 100
11/25/23 15:30 11/25/23 15:30 11/25/23 15:30 11/25/23 15:30 11/25/23 15:30
Physical Exam
Physical Exam
Constitutional: Chronically Ill
Eyes: No Conjunctival Hemorrhage and Sclera Anicteric
Cardiovascular: Irregular Rate and S1/S2
Pulmonary: Other (decreased BS)
Gastrointestinal: Soft, Non Tender and Non Distended
Extremities: Edema (BLE)
Lines: Port (No erythema)
Lab / Diagnostic Study Results
11/25/23 06:19
11/25/23 06:19
Abs Immat Gran (auto) 0.0 10^3/uL (0-0.05) 11/25/23 06:19
Absolute Neuts (auto) 5.0 10^3/uL (1.4-6.5) 11/25/23 06:19
Absolute Lymphs (auto) 0.4 10^3/uL (1.2-3.4) L 11/25/23 06:19
Absolute Monos (auto) 0.2 10^3/uL (0.1-0.6) 11/25/23 06:19
Absolute Basos (auto) 0.0 10^3/uL (0-0.2) 11/25/23 06:19
Immature Gran % 0.5 % (0-0.5) 11/25/23 06:19
Neutrophils % 87.7 % (42.2-75.2) H 11/25/23 06:19
Lymphocytes % 6.1 % (20.5-51.1) L 11/25/23 06:19
Monocytes % 3.1 % (1.7-9.3) 11/25/23 06:19
Eosinophils % 1.9 % (0-6) 11/25/23 06:19
Basophils % 0.7 % (0-2) 11/25/23 06:19
PT 14.5 Sec (11.4-14.6) 11/23/23 20:44
INR 1.15 11/23/23 20:44
Lactic Acid 1.2 mmol/L (0.7-2.0) 11/23/23 21:15
Microbiology Results
Micro:
11/23/23 22:12 Blood Culture - Preliminary
Blood/Venous No Growth in 24 hours- Final report to follow
11/23/23 21:15 Blood Culture - Preliminary
Blood/Venous No Growth in 24 hours- Final report to follow
11/24/23 06:16 Nasal Screen MRSA (PCR) - Final
Nose MRSA not detected - performed by PCR methodology.
Assessment / Plan
# Bilateral pulm consolidations concerning for PNA
# hx PCN allergy - tolerated cefepime in the past
- DC Vanco/aztreonam
- Start cefepime 2g IV q8h.
# Acute embolic CVA
# p Afib
- Neuro managing
# Recurrent breast CA with mets to lungs, bone, prob liver
# Recurrent malignant pleural effusions with bilateral pleurX catheters.
Right catheter recently exchanged at [facility] 11/11; s/p pleural lysis 11/24/23
# Recent outside finding of bilateral hydronephrosis with soft tissue throughout right ureter concerning neoplasm.
To follow up with Urology at [facility].
[2023-11-25] MEDS: MAXIPIME 2000 MG IV (18:32)
[2023-11-25 20:42] VITALS: BP 120/66
[2023-11-25] MEDS: COLACE 100 MG PO (22:01)
[2023-11-25 23:08] VITALS: BP 104/67
[2023-11-26] MEDS: MAXIPIME 2000 MG IV ×3 (01:11→17:01)
[2023-11-26] MEDS: STERILE WATER FOR INJECTION 10 ML IV ×3 (01:11→17:02)
[2023-11-26] MEDS: DILAUDID 0.5 MG IV ×5 (01:54→23:35)
[2023-11-26 04:10] LABS: Hematocrit 28.6 % (37.0-47.0); Hemoglobin 9.4 g/dL (12.0-16.0); Mean Corp Hgb Conc. 32.9 g/dL (33.0-37.0); Mean Corpuscular Hgb 28.8 pg (27.0-31.0); Mean Corpuscular Volume 87.7 fL (81.0-99.0); Mean Platelet Volume 10.8 fL (7.4-10.4); Platelet Count 282 10^3/uL (130-400); Red Blood Cell Count 3.26 10^6/uL (4.20-5.40); Red Cell Dist. Width 16.2 % (11.5-14.5); White Blood Cell Count 5.7 10^3/uL (4.8-10.8)
[2023-11-26 04:38] LABS: ALT (SGPT) 91 U/L (0-35); AST (SGOT) 83 U/L (14-36); Albumin 2.2 g/dl (3.5-5.0); Alkaline Phosphatase 459 U/L (38-126); Blood Urea Nitrogen 21 mg/dl (7-17); Carbon Dioxide 30 mmol/L (22-30); Chloride 100 mmol/L (98-107); Estimated Creatinine Clearance 98 ml/min; Glucose 106 mg/dl (70-99); Potassium 4.3 mmol/L (3.5-5.1); Sodium 131 mmol/L (135-145); Total Bilirubin 0.5 mg/dl (0.2-1.3); Total Protein 4.4 g/dl (6.3-8.2); eGFR > 60.00
[2023-11-26 07:00] VITALS: BP 111/67
--- NOTE | 2023-11-26 08:37 | W.PN.HOSP.TC ---
Addendum entered and electronically signed by Rex Talbot MD 11/26/23 16:32:
Updated daughter at bedside and 2 other family members.
Original Note:
Today's Communication/Plan
-
IV antibiotics. Aspirin.
Assessment / Plan
Assessment / Plan
Physical Exam
General: Acutely ill
HEENT: NormoCephalic, Moist mucous membranes and Atraumatic
Respiratory: Decreased Breath Sounds
Cardiac: S1/S2, Regular Rhythm and Peripheral Edema; No Murmur or Rub
GI: Soft, Non Tender, Non Distended and Normal Bowel Sounds; No Organomegaly
Rectal: Deferred by Provider
Musculoskeletal: No Clubbing, No Cyanosis and No Edema
Skin: No Rash
Neuro: Alert oriented x 3. Left eye all quadrants intact. Right eye loss of vision on all quadrants. Strength 4 out of 5 all 4 extremities.
A/P:
# Acute hypoxic respiratory insufficiency
# Moderate loculated bilateral likely malignant pleural effusions, progressed on the left, improved on the right
# Right sided Pleurx catheter with minimal drainage placed the dorsum
# Left-sided pleural catheter with moderate drainage placed at [place] previously
-IR consulted for tPA of the right Pleurx catheter. S/p right pleural lysis on 11/23.
-Pulmonology consulted and appreciated input
-Oncology consulted and appreciated input.
-PT OT eval
-Discussed with daughter in detail, who is an CHEMICAL ENGINEERING INTERN yesterday.
-Discussed with outpatient oncologist today, Dr. Michelle Arana ([phone])
-Plan for pleural catheter drainage today
-Discussed with changing aspirin to Eliquis but patient hesitant and wants to keep aspirin for now.
-I also broached the subject of possibility of changing CODE STATUS DNR or hospice care but at the moment patient adamant she wants to remain full code and wants to continue active treatment. Overall prognosis guarded.
# Moderate bibasilar consolidation concerning for pneumonia progressed on the left in the setting of immunocompromise status due to chemotherapy
-Check blood cultures and no growth so far
-Vancomycin/aztreonam changed to IV cefepime by ID
-ID consult appreciated
# Right visual loss--> stroke related and possible component of migraine
-Out of the time window for tPA/TNK
-MRI of the brain confirms stroke in the left parietal lobe/centrum semiovale
-Continue aspirin and consideration for changing to Eliquis. Patient has reservations even with aspirin at this point.
-No statins given elevated LFTs.
-Ultrasound carotids no significant stenosis
-Reviewed echocardiogram
#Abdominal discomfort
Will do ultrasound of the abdomen
There is evidence however of probable hepatic metastasis and probably abdominal ascites as well as known cervical cancer some hydronephrosis with several processes going on on her abdomen.
# Upper back pain likely due to blastic osseous metastatic disease
-Upper back pain is nonspecific
-Morphine for pain
# Abdominal pain secondary to mild upper abdominal ascites/probable hepatic metastases
# Transaminitis secondary to likely hepatic metastases
-Continue spironolactone
-Continue Lasix
# Bilateral lymphedema secondary to prior uterine radiation/venous insufficiency/hypoalbuminemia
-Continue Lasix/Spironolactone
-Patient reportedly had venous ultrasounds most recently 2 months ago which were negative for DVT
-Continue compression
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
-Check urine sodium, osmolality
-Fluid restriction 40 ounces
Breast cancer status postmastectomy and/radiation, received chemotherapy yesterday
Uterine cancer/cervical cancer status post radiation
Paroxysmal atrial fibrillation
-Continue Coreg
-Continue aspirin
Essential hypertension
-Continue losartan
History of migraines
Full code
DVT prophylaxis�heparin will resume.
Total time spent on today's encounter was 52 minutes which included time spent in counseling the patient/family regarding diagnosis and treatment plan as listed above, goals of care, and symptom management. Case was discussed with nursing staff,
specialists, and care coordinators/case management. All labs and imaging personally reviewed by me. Remainder the time spent in detailed review of previous records, lab data, imaging, and other medical provider documentation.
Anticipated Discharge: > 48 hours
Subjective/Interval History
-
Date of Service: November 26, 2023
Patient feels short of breath and feels that she needs to be drained in terms of her pleural fluid. Afebrile. Still having some vision abnormalities. No chest pain
Objective Data
-
Labs:
Laboratory Results
11/26/23
03:51
WBC 5.7
Hgb 9.4 L
Hct 28.6 L
Plt Count 282
Sodium 131 L
Potassium 4.3
Chloride 100
Carbon Dioxide 30
BUN 21 H
Creatinine 0.5 L
Glucose 106 H
Calcium 8.0 L
Total Bilirubin 0.5
AST 83 H
ALT 91 H
Alkaline Phosphatase 459 H
Vital Signs:
Vital Signs
Temp Pulse Resp BP Pulse Ox
98.3 F 89 18 104/67 98
11/25/23 23:08 11/25/23 23:08 11/25/23 23:08 11/25/23 23:08 11/25/23 23:08
I&O
11/25/23 11/26/23 11/27/23
06:59 06:59 06:59
Intake Total 360 / 360
Balance 360 / 360
[2023-11-26] MEDS: COREG 3.125 MG PO ×2 (08:49→20:20)
[2023-11-26] MEDS: VITAMIN B-12 1000 MCG PO (08:50)
[2023-11-26] MEDS: VITAMIN C 500 MG PO (08:50)
[2023-11-26] MEDS: DIOVAN 40 MG PO (08:50)
[2023-11-26] MEDS: LOW STRENGTH ASPIRIN 81 MG PO (08:50)
[2023-11-26] MEDS: VITAMIN D3 (cholecalciferol) 25 MCG PO (08:50)
[2023-11-26] MEDS: FOLVITE 1 MG PO (08:51)
--- NOTE | 2023-11-26 09:22 | W.PN.PUL.V3 ---
Today's Communication / Plan
-
Cefepime
Wean oxygen
Thrice weekly bilateral Pleurx catheter drainage-interventional radiology consulted
Neurology evaluation
Assessment
-
58-year-old female with recurrent breast cancer with pulmonary metastases and bilateral recurrent pleural effusions status post left pleural catheter as well as right pleural catheter with recent replacement at [facility] now presents with shortness of
breath, pain in the back, and recurrent pleural effusions-pulmonary consulted for recurrent pleural effusions 11/24/2023.
Recurrent bilateral loculated pleural effusions
Status post left Pleurx catheter-drained 3 times weekly-averaging over 700 mL
Status post right Pleurx catheter x 2-last drainage output, previously required tPA
Status post TPA/right pleural lysis 11/24/23
Bilateral consolidations/pneumonia
Immunocompromised status postchemotherapy
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
Abdominal pain secondary to abdominal ascites and probable hepatic metastases
Elevated LFTs
Bilateral lymphedema
Hyponatremia
Ebhwlk-nfcufzcuhi-mbdyyvijls 9.7
Acute CVA
Conditions present prior to admission:
Breast CA/mastectomy/XRT/chemotherapy-[facility].
Uterine/cervical cancer status post XRT.
Recurrent bilateral pleural effusions status post bilateral Pleurx catheters.
Migraines.
PAF.
Hypertension.
x 3. Hernia repair. Bilateral mastectomy.
Plan
Respiratory decompensation likely related to pneumonia and bilateral pleural effusions
Supplemental oxygen-attempt to wean and assess discharge supplemental oxygen needs
BiPAP if needed-has not needed
Nebulizers if needed-currently not bronchospastic
Aspiration precautions
Incentive spirometry
Mucus clearing devices
Cultures reviewed
Blood cultures negative
MRSA screen negative
Unable to produce sputum
Empiric antibiotics initiated-vancomycin and aztreonam-now changed to cefepime
Infectious disease consultation noted-change antibiotics to cefepime 2 g IV every 8 hours
Visual changes, and right eye.
Brain MRI 11/24/23-suspect tiny punctate nonhemorrhagic acute/subacute infarct high left parietal lobe/central semi-ovale region
Neurology evaluation-pending
Follow radiographically
Historically left pleural catheter is draining nearly 700 mL 3 times weekly-continue to drain as needed-I will contact interventional radiology for thrice weekly left Pleurx drainage
Historically right pleural catheter which was recently replaced at [facility] has drained much less
Interventional radiology-right pleural lysis/TPA 11/24/[address] Cavazos consulted interventional radiology 11/25/2023 for bilateral thrice weekly Pleurx catheter drainage
Analgesia for osseous metastatic disease per primary service
Monitor for oversedation
Monitor liver functions
Echocardiogram 11/25/2023-EF 61%, no significant valvular disease, PA systolic 30, no change compared to 2019
Oncological evaluation noted-Dr. Rutherford correspondence reviewed
Monitor hemoglobin
Transfuse as needed
DVT prophylaxis-on subcu heparin
Nutrition
Early mobilization/physical therapy
Reviewed with nursing
Diagnostic data:
Chest x-ray 10/29-NAD
Chest x-ray 03/12/2023-moderate loculated right pleural effusion which is new
CT chest 07/21/2023-negative for pulmonary embolism, pleural fluid loculated, moderate right pleural effusion, near complete consolidation basal segment right lower lobe suspicious for pneumonia, hepatic lesions
CT chest 12/12-no evidence for pulm embolism, moderate loculated bilateral pleural effusions improved on the right progressed on the left, moderate bibasilar consolidations concerning for pneumonia, findings suggestive of mild blastic osseous
metastatic disease mildly progressed, probable hepatic metastases and mild upper abdominal ascites
Thoracentesis 03/13/23-1300 mL straw-colored fluid
Tunneled pleural catheter placement 04/12/2023-asept pleural catheter placed on the right
Tunneled pleural catheter placement 06/23/2023-new tunneled catheter placed on the left
Echocardiogram 11/24/2019-EF 55-60%, stage I diastolic dysfunction, PA systolic estimated 29
Subjective Data
-
Date of Service:
Date of Service: November 26, 2023
Chief Complaint: Pulmonary Follow Up and Dyspnea Follow Up
Subjective:
No complaints of worsening shortness of breath, no chest pain or abdominal pain
Review of Systems
General: Other (Per HPI)
Objective Data
Data Reviewed
Vital Signs / I&O:
Vital Signs
Temp Pulse Resp BP Pulse Ox
97.9 F 81 18 111/67 99
11/26/23 07:00 11/26/23 07:00 11/26/23 07:00 11/26/23 07:00 11/26/23 07:00
Intake and Output
11/25/23 11/26/23 11/27/23
06:59 06:59 06:59
Intake Total 360 / 360
Balance 360 / 360
SaO2: 99
Nasal Cannula flow liters per minute: 3
Physical Exam
General: Respiratory Distress (n)
HEENT: Normocephalic and Anicteric
Respiratory: Clear ( diminished breath sounds, left greater than right base), Crackles (. Few basilar), Rhonchi (n), Non-Labored Respirations, Accessory Resp Muscle Use (n) and Stridor (n)
GI: Soft, Non Distended and Non Tender
Neurology: Awake, Alert, Oriented, AO x 3, No Motor Deficits, Tremors, Unresponsive, Lethargic, Non Verbal, Depressed, Other and Other
Skin: Warm, Good Color, Cyanosis (n), Jaundice (n) and Rash (n)
Labs/Micro/Reports
Lab Data
11/26/23 03:51
11/26/23 03:51
Microbiology
11/23/23 22:12 Blood/Venous Blood Culture - Preliminary
No Growth in 48 hours- Final report to follow
11/23/23 21:15 Blood/Venous Blood Culture - Preliminary
No Growth in 48 hours- Final report to follow
11/24/23 06:16 Nose Nasal Screen MRSA (PCR) - Final
MRSA not detected - performed by PCR methodology.
[2023-11-26 12:38] VITALS: PULSE 85; O2SAT 98
--- NOTE | 2023-11-26 13:23 | CM ---
Home with [facility], home oxygen from [facility] per patient .
Plan; Home with [facility].
--- NOTE | 2023-11-26 13:31 | W.PN.ID1 ---
Date of Service
Date of Service: November 26, 2023
Today's Communication
Continue cefepime.
Assessment / Plan
# Bilateral pulm consolidations concerning for PNA
- Continue cefepime 2g IV q8h (d4 abx)
# Acute embolic CVA
# p Afib
- Neuro managing
# Recurrent breast CA with mets to lungs, bone, prob liver
# Recurrent malignant pleural effusions with bilateral pleurX catheters.
Right catheter recently exchanged at [facility] 11/11; s/p pleural lysis 11/24/23
# Recent outside finding of bilateral hydronephrosis with soft tissue throughout right ureter concerning neoplasm.
To follow up with Urology at [facility].
Chief Complaint
-: Pneumonia
Subjective / Review of Systems
c/o left side lung tightness indicating pleurX catheter needs drainage.
Upper back pain now controlled.
Vital Signs / Physical Exam
Vital Signs
Vital Signs
Temp Pulse Resp BP Pulse Ox
97.9 F 81 18 111/67 99
11/26/23 07:00 11/26/23 07:00 11/26/23 07:00 11/26/23 07:00 11/26/23 09:22
Physical Exam
Constitutional: No Acute Distress and Comfortable
Eyes: Sclera Anicteric
Cardiovascular: Regular Rate and S1/S2
Pulmonary: Other (Decreased BS at bases)
Gastrointestinal: Soft, Non Tender and Non Distended
Genito-Urinary: Negative CVA Tenderness
Extremities: Edema (L>RLE)
Neurological: AO x 3
Lines: Port (LCW intact)
Objective Data
Lab Data
Lab Results
11/26/23 03:51
11/26/23 03:51
PT 14.5 Sec (11.4-14.6) 11/23/23 20:44
INR 1.15 11/23/23 20:44
Estimated Creat Clear 98 ml/min 11/26/23 03:51
Lactic Acid 1.2 mmol/L (0.7-2.0) 11/23/23 21:15
Total Bilirubin 0.5 mg/dl (0.2-1.3) 11/26/23 03:51
AST 83 U/L (14-36) H 11/26/23 03:51
ALT 91 U/L (0-35) H 11/26/23 03:51
Alkaline Phosphatase 459 U/L (38-126) H 11/26/23 03:51
Most recent labs reviewed.
Micro Results:
11/23/23 22:12 Blood Culture - Preliminary
Blood/Venous No Growth in 48 hours- Final report to follow
11/23/23 21:15 Blood Culture - Preliminary
Blood/Venous No Growth in 48 hours- Final report to follow
11/24/23 06:16 Nasal Screen MRSA (PCR) - Final
Nose MRSA not detected - performed by PCR methodology.
--- NOTE | 2023-11-26 14:59 | PN.IRAD.UPD ---
Update Note - IRAD
- -
475 ml bloody pleural fluid removed via right PLEURX catheter at bedside. New , clean ,dry dressing placed over site. Patient tolerated procedure well.
[2023-11-26 15:00] VITALS: BP 132/79
--- NOTE | 2023-11-26 15:02 | PN.IRAD.UPD ---
Update Note - IRAD
- -
750 ml clear yellow pleural fluid drained via left ASEPT catheter at bedside. New clean,dry dressing placed over site. Patient tolerated procedure well.
[2023-11-26] MEDS: SENOKOT-S 1 TABLET PO ×2 (17:01→20:14)
[2023-11-26] MEDS: ALDACTONE 25 MG PO (17:01)
[2023-11-26] MEDS: MIRALAX 17 GRAMS PO (17:01)
[2023-11-26] MEDS: LASIX 20 MG PO (17:01)
[2023-11-26] MEDS: MILK OF MAGNESIA 30 ML PO (17:01)
[2023-11-26] MEDS: HEPARIN 5000 UNITS SC (20:15)
[2023-11-26 23:16] VITALS: BP 112/70
[2023-11-27] MEDS: MAXIPIME 2000 MG IV ×3 (02:20→17:19)
[2023-11-27] MEDS: STERILE WATER FOR INJECTION 10 ML IV ×3 (02:20→17:19)
[2023-11-27 06:09] LABS: % Eosinophils 2.9 % (0-6); % Immature Granulocytes 0.5 % (0-0.5); % Lymphocytes 7.8 % (20.5-51.1); % Monocytes 3.9 % (1.7-9.3); % Neutrophils 83.9 % (42.2-75.2); Absolute Eosinophils 0.1 10^3/uL (0-0.7); Absolute Lymphocytes 0.3 10^3/uL (1.2-3.4); Absolute Monocytes 0.2 10^3/uL (0.1-0.6); Absolute Neutrophils 3.4 10^3/uL (1.4-6.5); Hematocrit 27.6 % (37.0-47.0); Hemoglobin 9.1 g/dL (12.0-16.0); Mean Corpuscular Volume 87.9 fL (81.0-99.0); Mean Platelet Volume 10.4 fL (7.4-10.4); Nucleated Red Blood Cells % 0 %; Platelet Count 249 10^3/uL (130-400); Red Blood Cell Count 3.14 10^6/uL (4.20-5.40); Red Cell Dist. Width 16.3 % (11.5-14.5); White Blood Cell Count 4.1 10^3/uL (4.8-10.8)
[2023-11-27 06:26] LABS: INR 1.07
[2023-11-27 06:33] LABS: ALT (SGPT) 77 U/L (0-35); AST (SGOT) 75 U/L (14-36); Albumin 2.1 g/dl (3.5-5.0); Alkaline Phosphatase 425 U/L (38-126); Blood Urea Nitrogen 21 mg/dl (7-17); Calcium 8.2 mg/dl (8.4-10.2); Carbon Dioxide 28 mmol/L (22-30); Chloride 99 mmol/L (98-107); Estimated Creatinine Clearance 98 ml/min; Glucose 102 mg/dl (70-99); Potassium 4.6 mmol/L (3.5-5.1); Sodium 130 mmol/L (135-145); Total Bilirubin 0.4 mg/dl (0.2-1.3); Total Protein 4.2 g/dl (6.3-8.2); eGFR > 60.00
[2023-11-27 07:30] VITALS: BP 113/67
--- NOTE | 2023-11-27 07:31 | W.PN.HOSP.TC ---
Today's Communication/Plan
-
IV antibiotics.
Assessment / Plan
Assessment / Plan
Physical Exam
General: Acutely ill
HEENT: NormoCephalic, Moist mucous membranes and Atraumatic
Respiratory: Decreased Breath Sounds
Cardiac: S1/S2, Regular Rhythm and Peripheral Edema; No Murmur or Rub
GI: Soft, Non Tender, Non Distended and Normal Bowel Sounds; No Organomegaly
Rectal: Deferred by Provider
Musculoskeletal: No Clubbing, No Cyanosis and No Edema
Skin: No Rash
Neuro: Alert oriented x 3. Left eye all quadrants intact. Right eye loss of vision on all quadrants. Strength 4 out of 5 all 4 extremities.
A/P:
# Acute hypoxic respiratory insufficiency
# Moderate loculated bilateral likely malignant pleural effusions, progressed on the left, improved on the right
# Right sided Pleurx catheter with minimal drainage placed the dorsum
# Left-sided pleural catheter with moderate drainage placed at [facility]
-IR consulted for tPA of the right Pleurx catheter. S/p right pleural lysis on 11/23.
-Pulmonology consulted and appreciated input
-Oncology consulted and appreciated input.
-PT OT eval
-Discussed with daughter in detail, who is an ELECTROSTATIC PAINT OPERATOR yesterday.
-Discussed with outpatient oncologist today, Dr. Michelle Arana ([phone])
-Plan for pleural catheter drainage today
-Discussed with changing aspirin to Eliquis but patient hesitant and wants to keep aspirin for now.
-I also broached the subject of possibility of changing CODE STATUS DNR or hospice care but at the moment patient adamant she wants to remain full code and wants to continue active treatment. Overall prognosis guarded.
# Moderate bibasilar consolidation concerning for pneumonia progressed on the left in the setting of immunocompromise status due to chemotherapy
-Check blood cultures and no growth so far
-Vancomycin/aztreonam changed to IV cefepime by ID
-ID consult appreciated
# Right visual loss--> stroke related and possible component of migraine
-Out of the time window for tPA/TNK
-MRI of the brain confirms stroke in the left parietal lobe/centrum semiovale
-Continue aspirin and consideration for changing to Eliquis. Patient has reservations even with aspirin at this point.
-No statins given elevated LFTs.
-Ultrasound carotids no significant stenosis
-Reviewed echocardiogram
#Abdominal discomfort
Will do ultrasound of the abdomen
There is evidence however of probable hepatic metastasis and probably abdominal ascites as well as known cervical cancer some hydronephrosis with several processes going on on her abdomen.
# Upper back pain likely due to blastic osseous metastatic disease
-Upper back pain is nonspecific
-Morphine for pain
# Abdominal pain secondary to mild upper abdominal ascites/probable hepatic metastases
# Transaminitis secondary to likely hepatic metastases
-Continue spironolactone
-Continue Lasix
# Bilateral lymphedema secondary to prior uterine radiation/venous insufficiency/hypoalbuminemia
-Continue Lasix/Spironolactone
-Patient reportedly had venous ultrasounds most recently 2 months ago which were negative for DVT
-Continue compression
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
-Check urine sodium, osmolality
-Fluid restriction 40 ounces
Breast cancer status postmastectomy and/radiation, received chemotherapy yesterday
Uterine cancer/cervical cancer status post radiation
Paroxysmal atrial fibrillation
-Continue Coreg
-Continue aspirin
Essential hypertension
-Continue losartan
History of migraines
Full code
DVT prophylaxis�heparin change to lovenox
Total time spent on today's encounter was 52 minutes which included time spent in counseling the patient/family regarding diagnosis and treatment plan as listed above, goals of care, and symptom management. Case was discussed with nursing staff,
specialists, and care coordinators/case management. All labs and imaging personally reviewed by me. Remainder the time spent in detailed review of previous records, lab data, imaging, and other medical provider documentation.
Anticipated Discharge: > 48 hours
Subjective/Interval History
-
Date of Service: November 27, 2023
Patient feels better overall today. Denies worsening shortness of breath or chest pain today. Afebrile
Objective Data
-
Labs:
Laboratory Results
11/27/23
05:46
WBC 4.1 L
Hgb 9.1 L
Hct 27.6 L
Plt Count 249
PT 14.0
INR 1.07
Sodium 130 L
Potassium 4.6
Chloride 99
Carbon Dioxide 28
BUN 21 H
Creatinine 0.5 L
Glucose 102 H
Calcium 8.2 L
Total Bilirubin 0.4
AST 75 H
ALT 77 H
Alkaline Phosphatase 425 H
Vital Signs:
Vital Signs
Temp Pulse Resp BP Pulse Ox
98.1 F 87 16 112/70 99
11/26/23 23:16 11/26/23 23:16 11/26/23 23:16 11/26/23 23:16 11/26/23 23:16
I&O
11/26/23 11/27/23 11/28/23
06:59 06:59 06:59
Intake Total 360 / 360 1660 / 1660
Balance 360 / 360 1660 / 1660
[2023-11-27] MEDS: MIRALAX 17 GRAMS PO (08:44)
[2023-11-27] MEDS: SENOKOT-S 1 TABLET PO ×2 (08:44→20:24)
[2023-11-27] MEDS: LOW STRENGTH ASPIRIN 81 MG PO (08:44)
[2023-11-27] MEDS: VITAMIN D3 (cholecalciferol) 25 MCG PO (08:44)
[2023-11-27] MEDS: VITAMIN B-12 1000 MCG PO (08:44)
[2023-11-27] MEDS: COREG 3.125 MG PO ×2 (08:44→21:50)
[2023-11-27] MEDS: VITAMIN C 500 MG PO (08:44)
[2023-11-27] MEDS: DIOVAN 40 MG PO (08:44)
[2023-11-27] MEDS: FOLVITE 1 MG PO (08:44)
[2023-11-27] MEDS: DILAUDID 0.5 MG IV ×3 (08:45→20:43)
[2023-11-27] MEDS: HEPARIN SC (09:34)
--- NOTE | 2023-11-27 10:08 | W.PN.PUL3 ---
Today's Communication / Plan
-
Cefepime - defer ABx to ID
Wean oxygen to maintain SpO2>90-94%
TIW bilateral Pleurx catheter drainage-interventional radiology consulted
Neurology saw pt, pt now on ASA; recommend starting systemic AC given her Hx of A-fib and now with suspected cardio-embolic CVA with L-sided CVA seen on brain MRI from 11/24/2023
Assessment
-
58-year-old female with recurrent breast cancer with pulmonary metastases and bilateral recurrent pleural effusions status post left pleural catheter as well as right pleural catheter with recent replacement at [facility] now presents with shortness of
breath, pain in the back, and recurrent pleural effusions-pulmonary consulted for recurrent pleural effusions 11/24/2023.
Impression:
Recurrent bilateral loculated pleural effusions
Status post left Pleurx catheter-drained 3 times weekly-averaging over 700 mL
Status post right Pleurx catheter x 2-last drainage output, previously required tPA
Status post TPA/right pleural lysis 11/24/23
Bilateral consolidations/pneumonia
Immunocompromised status postchemotherapy
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
Abdominal pain secondary to abdominal ascites and probable hepatic metastases
Elevated LFTs
Bilateral lymphedema
Hyponatremia
Vjfijb-wgsgpciswf-xrcwvwegup 9.7
Acute/subacute ischemic CVA -seen on brain MRI on 11/24/2023 involving the left-sided parietal lobe/centrum semiovale region
Conditions present prior to admission:
Breast CA/mastectomy/XRT/chemotherapy-[facility].
Uterine/cervical cancer status post XRT.
Recurrent bilateral pleural effusions status post bilateral Pleurx catheters.
Migraines.
PAF.
Hypertension.
x 3. Hernia repair. Bilateral mastectomy.
Plan
Respiratory decompensation likely related to pneumonia and bilateral loculated pleural effusions
Supplemental oxygen-attempt to wean and assess discharge supplemental oxygen needs
BiPAP if needed-has not needed
Nebulizers if needed-currently not bronchospastic
Aspiration precautions
Incentive spirometry
Mucus clearing devices
Cultures reviewed
Blood cultures negative (collected 11/23/2023)
MRSA screen negative
Unable to produce sputum
Empiric antibiotics initiated-vancomycin and aztreonam-now changed to cefepime since 11/25/2023
Infectious disease on board, defer antibiotics to them
Visual changes with blurred vision involving her right eye
Brain MRI 11/24/23-suspect tiny punctate nonhemorrhagic acute/subacute infarct high left parietal lobe/central semi-ovale region
Neurology on board � continue with ASA, neurological checks with NIH stroke scale every shift and as needed for any change in mental status, and anticoagulation with Eliquis rec'd; patient currently only on DVT ppx w/ LMWH
Follow radiographically
Historically left pleural catheter is draining nearly 700 mL 3 times weekly-continue to drain as needed-I will contact interventional radiology for thrice weekly left Pleurx drainage
Historically right pleural catheter which was recently replaced at [facility] has drained much less
Interventional radiology-right pleural lysis/TPA 11/24/[address] Cavazos consulted interventional radiology 11/25/2023 for bilateral TIW Pleurx catheter drainage
Analgesia for osseous metastatic disease per primary service
Monitor for oversedation
Trend LFTs
Echocardiogram 11/25/2023-EF 61%, no significant valvular disease, PA systolic 30, no change compared to 2019
Oncological evaluation noted-Dr. Rutherford correspondence reviewed
Monitor hemoglobin
Transfuse as needed to keep Hb>7, plt>20k
DVT prophylaxis-LMWH ppx dosing --> as per the recommendations of neurolgy given her Hx of A-fib and ischemic L-sided CVA with high risk of cardio-embolic CVA, consider starting NOAC with Eliquis
Nutrition
Early mobilization/physical therapy
Reviewed with nursing
Total time spent today was 35 minutes for this encounter. Time includes reviewing laboratory test/imaging results, reviewing pertinent medical records, obtaining and reviewing medical history, performing an appropriate exam, ordering medications,
tests and procedures. Time also includes documentation of this encounter, coordinating patient care and communicating with other healthcare professionals. Total time does not include separately billed tests performed on this date of service.
Diagnostic data:
Chest x-ray 10/29-NAD
Chest x-ray 03/12/2023-moderate loculated right pleural effusion which is new
CT chest 07/21/2023-negative for pulmonary embolism, pleural fluid loculated, moderate right pleural effusion, near complete consolidation basal segment right lower lobe suspicious for pneumonia, hepatic lesions
CT chest 12/12-no evidence for pulm embolism, moderate loculated bilateral pleural effusions improved on the right progressed on the left, moderate bibasilar consolidations concerning for pneumonia, findings suggestive of mild blastic osseous
metastatic disease mildly progressed, probable hepatic metastases and mild upper abdominal ascites
Thoracentesis 03/13/23-1300 mL straw-colored fluid
Tunneled pleural catheter placement 04/12/2023-asept pleural catheter placed on the right
Tunneled pleural catheter placement 06/23/2023-new tunneled catheter placed on the left
Echocardiogram 11/24/2019-EF 55-60%, stage I diastolic dysfunction, PA systolic estimated 29
Brain MRI 11-24-2023:
Suspect tiny punctate nonhemorrhagic acute/subacute infarct in the high left parietal lobe/centrum semiovale region.
Nonspecific subcentimeter focus of altered signal in the left cerebellum, possibly site of gliosis. Consider outpatient follow-up contrast-enhanced MRI brain in 3-6 months.
Subjective Data
-
Date of Service:
Date of Service: November 27, 2023
Chief Complaint: Pulmonary Follow Up and Dyspnea Follow Up
Subjective:
Patient was seen and evaluated today at bedside. Currently on 3 L/min nasal cannula. She just had a shortness of breath episode, but then it spontaneously dissipated. She feels like she may need to drain her Pleurx tube. She currently denies
chest pain, headache, abdominal pain, fevers or chills. Afebrile overnight.
Review of Systems
General: Other (Negative unless mentioned above)
Objective Data
Data Reviewed
Vital Signs / I&O / Oxygen:
Vital Signs
Temp Pulse Resp BP Pulse Ox
97.6 F 81 18 113/67 100
11/27/23 07:30 11/27/23 07:30 11/27/23 07:30 11/27/23 07:30 11/27/23 07:30
Intake and Output
11/26/23 11/27/23 11/28/23
06:59 06:59 06:59
Intake Total 360 / 360 1660 / 1660
Balance 360 / 360 1660 / 1660
SaO2 100
Nasal Cannula flow liters per 2.5
minute
Physical Exam
General: Respiratory Distress (n) and Comfortable
HEENT: Normocephalic and Anicteric
Cardiovascular: S1-S2 and Peripheral Edema (+2 LE pitting edema b/l)
Respiratory: Wheeze (negative), Crackles (heard posteriorly in NIKI), Rhonchi (n), Non-Labored Respirations, Accessory Resp Muscle Use (n), Stridor (n) and Other (Diminished breath sounds bilaterally (R>L))
GI: Soft, Non Distended, Non Tender and Normal Bowel Sounds
Neurology: AO x 3 and Tremors (negative)
Skin: Warm, Dry, Cyanosis (n), Jaundice (n) and Rash (n)
Labs/Micro/Reports
Lab Data
11/27/23 05:46
11/27/23 05:46
Laboratory Results
11/27/23
05:46
PT 14.0
INR 1.07
Microbiology
11/23/23 22:12 Blood/Venous Blood Culture - Preliminary
No Growth in 72 hours- Final report to follow
11/23/23 21:15 Blood/Venous Blood Culture - Preliminary
No Growth in 72 hours- Final report to follow
11/24/23 06:16 Nose Nasal Screen MRSA (PCR) - Final
MRSA not detected - performed by PCR methodology.
--- NOTE | 2023-11-27 14:35 | W.PN.ID1 ---
Date of Service
Date of Service: November 27, 2023
Today's Communication
At time of discharge, transition to levofloxacin 750mg po qd through 11/26/23.
Assessment / Plan
# Bilateral pulm consolidations concerning for PNA
- Continue cefepime 2g IV q8h (d5 abx)
- At time of discharge, transition to levofloxacin 750mg po qd through 11/26/23.
# Acute embolic CVA
# p Afib
# Recurrent breast CA with mets to lungs, bone, prob liver
# Recurrent malignant pleural effusions with bilateral pleurX catheters.
Right catheter recently exchanged at [facility] 11/11; s/p pleural lysis 11/24/23
# Recent outside finding of bilateral hydronephrosis with soft tissue throughout right ureter concerning neoplasm.
To follow up with Urology at [facility].
Chief Complaint
-: Pneumonia
Subjective / Review of Systems
SOB better.
Vital Signs / Physical Exam
Vital Signs
Vital Signs
Temp Pulse Resp BP Pulse Ox
97.6 F 81 18 113/67 100
11/27/23 07:30 11/27/23 07:30 11/27/23 07:30 11/27/23 07:30 11/27/23 09:00
Physical Exam
Constitutional: No Acute Distress
Pulmonary: Other (Decreased BS at bases)
Gastrointestinal: Soft and Non Tender
Extremities: Edema
Neurological: AO x 3
Objective Data
Lab Data
Lab Results
11/27/23 05:46
11/27/23 05:46
PT 14.0 Sec (11.4-14.6) 11/27/23 05:46
INR 1.07 11/27/23 05:46
Estimated Creat Clear 98 ml/min 11/27/23 05:46
Lactic Acid 1.2 mmol/L (0.7-2.0) 11/23/23 21:15
Total Bilirubin 0.4 mg/dl (0.2-1.3) 11/27/23 05:46
AST 75 U/L (14-36) H 11/27/23 05:46
ALT 77 U/L (0-35) H 11/27/23 05:46
Alkaline Phosphatase 425 U/L (38-126) H 11/27/23 05:46
Most recent labs reviewed.
Micro Results:
11/23/23 22:12 Blood Culture - Preliminary
Blood/Venous No Growth in 72 hours- Final report to follow
11/23/23 21:15 Blood Culture - Preliminary
Blood/Venous No Growth in 72 hours- Final report to follow
11/24/23 06:16 Nasal Screen MRSA (PCR) - Final
Nose MRSA not detected - performed by PCR methodology.
[2023-11-27 15:50] VITALS: BP 119/68
[2023-11-27] MEDS: ALDACTONE 25 MG PO (17:18)
[2023-11-27] MEDS: LASIX 20 MG PO (17:18)
[2023-11-27] MEDS: LOVENOX 40 MG SC (17:19)
[2023-11-27 20:23] VITALS: BP 101/65
[2023-11-27 23:00] VITALS: BP 107/68
[2023-11-28] MEDS: FLUSH (NSS) 1 FLUSH IV (00:36)
[2023-11-28] MEDS: DILAUDID 0.5 MG IV ×5 (00:36→20:20)
[2023-11-28] MEDS: MAXIPIME 2000 MG IV ×3 (01:01→18:15)
[2023-11-28] MEDS: STERILE WATER FOR INJECTION 10 ML IV ×3 (01:02→18:15)
[2023-11-28 07:47] LABS: % Basophils 1.1 % (0-2); % Eosinophils 3.9 % (0-6); % Immature Granulocytes 0.8 % (0-0.5); % Lymphocytes 7.6 % (20.5-51.1); % Neutrophils 81.6 % (42.2-75.2); Absolute Eosinophils 0.1 10^3/uL (0-0.7); Absolute Lymphocytes 0.3 10^3/uL (1.2-3.4); Absolute Monocytes 0.2 10^3/uL (0.1-0.6); Absolute Neutrophils 2.9 10^3/uL (1.4-6.5); Hematocrit 27.7 % (37.0-47.0); Hemoglobin 9.1 g/dL (12.0-16.0); Mean Corp Hgb Conc. 32.9 g/dL (33.0-37.0); Mean Corpuscular Volume 88.2 fL (81.0-99.0); Mean Platelet Volume 10.4 fL (7.4-10.4); Nucleated Red Blood Cells % 0 %; Platelet Count 253 10^3/uL (130-400); Red Blood Cell Count 3.14 10^6/uL (4.20-5.40); Red Cell Dist. Width 16.4 % (11.5-14.5); White Blood Cell Count 3.6 10^3/uL (4.8-10.8)
[2023-11-28 08:15] LABS: ALT (SGPT) 76 U/L (0-35); AST (SGOT) 78 U/L (14-36); Albumin 2.1 g/dl (3.5-5.0); Alkaline Phosphatase 424 U/L (38-126); Blood Urea Nitrogen 19 mg/dl (7-17); Calcium 8.1 mg/dl (8.4-10.2); Carbon Dioxide 31 mmol/L (22-30); Chloride 97 mmol/L (98-107); Estimated Creatinine Clearance 98 ml/min; Glucose 97 mg/dl (70-99); Potassium 4.3 mmol/L (3.5-5.1); Sodium 130 mmol/L (135-145); Total Bilirubin 0.4 mg/dl (0.2-1.3); Total Protein 4.2 g/dl (6.3-8.2); eGFR > 60.00
[2023-11-28 08:27] VITALS: BP 111/63
[2023-11-28] MEDS: DIOVAN 40 MG PO (08:50)
[2023-11-28] MEDS: COREG 3.125 MG PO ×2 (08:50→20:19)
[2023-11-28] MEDS: VITAMIN C 500 MG PO (08:51)
[2023-11-28] MEDS: MIRALAX 17 GRAMS PO (08:51)
[2023-11-28] MEDS: VITAMIN B-12 1000 MCG PO (08:51)
[2023-11-28] MEDS: SENOKOT-S 1 TABLET PO (08:51)
[2023-11-28] MEDS: VITAMIN D3 (cholecalciferol) 25 MCG PO (08:51)
[2023-11-28] MEDS: FOLVITE 1 MG PO (08:51)
[2023-11-28] MEDS: LOW STRENGTH ASPIRIN 81 MG PO (08:51)
--- NOTE | 2023-11-28 09:05 | W.PN.HOSP.TC ---
Today's Communication/Plan
-
Continue IV antibiotics. Continue malignant pleural effusion drainage. PT OT.
Assessment / Plan
Assessment / Plan
Physical Exam
General: Acutely ill
HEENT: NormoCephalic, Moist mucous membranes and Atraumatic
Respiratory: Decreased Breath Sounds
Cardiac: S1/S2, Regular Rhythm and Peripheral Edema; No Murmur or Rub
GI: Soft, Non Tender, Non Distended and Normal Bowel Sounds; No Organomegaly
Rectal: Deferred by Provider
Musculoskeletal: No Clubbing, No Cyanosis and No Edema
Skin: No Rash
Neuro: Alert oriented x 3. Left eye all quadrants intact. Right eye loss of vision on all quadrants. Strength 4 out of 5 all 4 extremities.
A/P:
# Acute hypoxic respiratory insufficiency
# Moderate loculated bilateral likely malignant pleural effusions, progressed on the left, improved on the right
# Right sided Pleurx catheter with minimal drainage placed the dorsum
# Left-sided pleural catheter with moderate drainage placed at [facility]
-IR consulted for tPA of the right Pleurx catheter. S/p right pleural lysis on 11/23.
-Pulmonology consulted and appreciated input
-Oncology consulted and appreciated input.
-PT OT eval
-Discussed with daughter in detail, who is an [employer]IC THER[employer]IST.
-Discussed with outpatient oncologist today, Dr. Michelle Arana ([phone])
-Plan for pleural catheter drainage
-Discussed with changing aspirin to Eliquis but patient hesitant and wants to keep aspirin for now.
-I also broached the subject of possibility of changing CODE STATUS DNR or hospice care but at the moment patient adamant she wants to remain full code and wants to continue active treatment. Overall prognosis guarded.
# Moderate bibasilar consolidation concerning for pneumonia progressed on the left in the setting of immunocompromise status due to chemotherapy
-Check blood cultures and no growth so far
-Vancomycin/aztreonam changed to IV cefepime by ID.
-Continue IV cefepime day number 6 out of 7.
-ID consult and follow-up appreciated
# Right visual loss--> stroke related and possible component of migraine
-Out of the time window for tPA/TNK
-MRI of the brain confirms stroke in the left parietal lobe/centrum semiovale
-Continue aspirin and consideration for changing to Eliquis. Patient has reservations even with aspirin at this point.
-No statins given elevated LFTs.
-Ultrasound carotids no significant stenosis
-Reviewed echocardiogram
#Abdominal discomfort
Will do ultrasound of the abdomen
There is evidence however of probable hepatic metastasis and probably abdominal ascites as well as known cervical cancer some hydronephrosis with several processes going on on her abdomen.
# Upper back pain likely due to blastic osseous metastatic disease
-Upper back pain is nonspecific
-Morphine for pain
# Abdominal pain secondary to mild upper abdominal ascites/probable hepatic metastases
# Transaminitis secondary to likely hepatic metastases
-Continue spironolactone
-Continue Lasix
# Bilateral lymphedema secondary to prior uterine radiation/venous insufficiency/hypoalbuminemia
-Continue Lasix/Spironolactone
-Patient reportedly had venous ultrasounds most recently 2 months ago which were negative for DVT
-Continue compression
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
-Check urine sodium, osmolality
-Fluid restriction 40 ounces
Breast cancer status postmastectomy and/radiation, received chemotherapy yesterday
Uterine cancer/cervical cancer status post radiation
Paroxysmal atrial fibrillation
-Continue Coreg
-Continue aspirin
Essential hypertension
-Continue losartan
History of migraines
Full code
DVT prophylaxis�heparin change to lovenox
Total time spent on today's encounter was 52 minutes which included time spent in counseling the patient/family regarding diagnosis and treatment plan as listed above, goals of care, and symptom management. Case was discussed with nursing staff,
specialists, and care coordinators/case management. All labs and imaging personally reviewed by me. Remainder the time spent in detailed review of previous records, lab data, imaging, and other medical provider documentation.
Anticipated Discharge: 24 - 48 hours
Subjective/Interval History
-
Date of Service: November 28, 2023
Still some shortness of breath although less than before. No chest pain. Afebrile. Still has some visual abnormalities.
Objective Data
-
Labs:
Laboratory Results
11/28/23
07:34
WBC 3.6 L
Hgb 9.1 L
Hct 27.7 L
Plt Count 253
Sodium 130 L
Potassium 4.3
Chloride 97 L
Carbon Dioxide 31 H
BUN 19 H
Creatinine 0.4 L
Glucose 97
Calcium 8.1 L
Total Bilirubin 0.4
AST 78 H
ALT 76 H
Alkaline Phosphatase 424 H
Vital Signs:
Vital Signs
Temp Pulse Resp BP Pulse Ox
97.8 F 70 16 111/63 99
11/28/23 08:27 11/28/23 08:50 11/28/23 08:27 11/28/23 08:50 11/28/23 08:27
I&O
11/27/23 11/28/23 11/29/23
06:59 06:59 06:59
Intake Total 1660 / 1660 880 / 880
Balance 1660 / 1660 880 / 880
--- NOTE | 2023-11-28 09:44 | W.PN.PUL3 ---
Today's Communication / Plan
-
Given patient's having shortness of breath s/p left-sided Pleurx removal of 725 cc earlier today, check stat CXR + give DuoNeb treatment and give Dilaudid
If SOB persistent placed onto BiPAP 05/25, titrating FiO2 to keep SpO2 >90-94%
Continue cefepime - defer ABx to ID
Wean oxygen to maintain SpO2>90-94%
TIW bilateral Pleurx catheter drainage-interventional radiology consulted
Neurology saw pt, pt now on ASA; recommend starting systemic AC given her Hx of A-fib and now with suspected cardio-embolic CVA with L-sided CVA seen on brain MRI from 11/24/2023
Assessment
-
58-year-old female with recurrent breast cancer with pulmonary metastases and bilateral recurrent pleural effusions status post left pleural catheter as well as right pleural catheter with recent replacement at [facility] now presents with shortness of
breath, pain in the back, and recurrent pleural effusions-pulmonary consulted for recurrent pleural effusions 11/24/2023.
Impression:
Recurrent bilateral loculated pleural effusions
Status post left Pleurx catheter-drained 3 times weekly-averaging over 700 mL
Status post right Pleurx catheter x 2-last drainage output, previously required tPA
Status post TPA/right pleural lysis 11/24/23
Bilateral consolidations/pneumonia
Immunocompromised status postchemotherapy
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
Abdominal pain secondary to abdominal ascites and probable hepatic metastases
Elevated LFTs
Bilateral lymphedema
Hyponatremia
Kanvaj-lqsvxhijth-pjicsqlqfg 9.7
Acute/subacute ischemic CVA -seen on brain MRI on 11/24/2023 involving the left-sided parietal lobe/centrum semiovale region
Conditions present prior to admission:
Breast CA/mastectomy/XRT/chemotherapy-[facility].
Uterine/cervical cancer status post XRT.
Recurrent bilateral pleural effusions status post bilateral Pleurx catheters.
Migraines.
PAF.
Hypertension.
x 3. Hernia repair. Bilateral mastectomy.
Plan
Patient now feeling short of breath with mild acute respiratory distress s/p left-sided Pleurx fluid removal of 725 cc � check stat CXR and give DuoNeb treatment -bedside RN aware.
Continue with prn opioids for SOB --> she is also getting Dilaudid right now to help with her dyspnea.
If SOB not improved with DuoNebs then place onto BiPAP
Previously:
Her respiratory decompensation likely related to pneumonia and bilateral loculated pleural effusions
Supplemental oxygen-attempt to wean and assess discharge supplemental oxygen needs
BiPAP if needed-has not needed
Nebulizers if needed-currently not bronchospastic
Aspiration precautions
Incentive spirometry
Mucus clearing devices
Cultures reviewed
Blood cultures negative (collected 11/23/2023)
MRSA screen negative
Unable to produce sputum
Empiric antibiotics initiated-vancomycin and aztreonam-now changed to cefepime since 11/25/2023
Infectious disease on board, defer antibiotics to them
Visual changes with blurred vision involving her right eye
Brain MRI 11/24/23-suspect tiny punctate nonhemorrhagic acute/subacute infarct high left parietal lobe/central semi-ovale region
Neurology on board � continue with ASA, neurological checks with NIH stroke scale every shift and as needed for any change in mental status, and anticoagulation with Eliquis rec'd; patient currently only on DVT ppx w/ LMWH
Follow radiographically
Historically left pleural catheter is draining nearly 700 mL 3 times weekly-continue to drain as needed- consult interventional radiology for thrice weekly left Pleurx drainage
Historically right pleural catheter which was recently replaced at [facility] has drained much less
Interventional radiology-right pleural lysis/TPA 11/24/[address] Cavazos consulted interventional radiology 11/25/2023 for bilateral TIW Pleurx catheter drainage
Analgesia for osseous metastatic disease per primary service
Monitor for oversedation
Trend LFTs
Echocardiogram 11/25/2023-EF 61%, no significant valvular disease, PA systolic 30, no change compared to 2019
Oncological evaluation noted-Dr. Rutherford correspondence reviewed
Monitor hemoglobin
Transfuse as needed to keep Hb>7, plt>20k
DVT prophylaxis-LMWH ppx dosing --> as per the recommendations of neurology given her Hx of A-fib and ischemic L-sided CVA with high risk of cardio-embolic CVA, consider starting NOAC with Eliquis
Nutrition
Early mobilization/physical therapy
Reviewed with nursing
Total time spent today was 50 minutes for this encounter. Time includes reviewing laboratory test/imaging results, reviewing pertinent medical records, obtaining and reviewing medical history, performing an appropriate exam, ordering medications,
tests and procedures. Time also includes documentation of this encounter, coordinating patient care and communicating with other healthcare professionals. Total time does not include separately billed tests performed on this date of service.
Diagnostic data:
Chest x-ray 10/29-NAD
Chest x-ray 03/12/2023-moderate loculated right pleural effusion which is new
CT chest 07/21/2023-negative for pulmonary embolism, pleural fluid loculated, moderate right pleural effusion, near complete consolidation basal segment right lower lobe suspicious for pneumonia, hepatic lesions
CT chest 12/12-no evidence for pulm embolism, moderate loculated bilateral pleural effusions improved on the right progressed on the left, moderate bibasilar consolidations concerning for pneumonia, findings suggestive of mild blastic osseous
metastatic disease mildly progressed, probable hepatic metastases and mild upper abdominal ascites
Thoracentesis 03/13/23-1300 mL straw-colored fluid
Tunneled pleural catheter placement 04/12/2023-asept pleural catheter placed on the right
Tunneled pleural catheter placement 06/23/2023-new tunneled catheter placed on the left
Echocardiogram 11/24/2019-EF 55-60%, stage I diastolic dysfunction, PA systolic estimated 29
Brain MRI 11-24-2023:
Suspect tiny punctate nonhemorrhagic acute/subacute infarct in the high left parietal lobe/centrum semiovale region.
Nonspecific subcentimeter focus of altered signal in the left cerebellum, possibly site of gliosis. Consider outpatient follow-up contrast-enhanced MRI brain in 3-6 months.
Subjective Data
-
Date of Service:
Date of Service: November 28, 2023
Chief Complaint: Pulmonary Follow Up and Dyspnea Follow Up
Subjective:
Patient seen this afternoon. She had just drained her left-sided Pleurx with her daughter, who is an CORN CUTTER OPERATOR - 725cc were removed, as per patient. She now feels short of breath. She is currently saturating 99% on 3 L/min nasal cannula. She denies
chest pain, headache, fevers or chills. She has been afebrile overnight.
Review of Systems
General: Other (Negative unless mentioned above)
Objective Data
Data Reviewed
Vital Signs / I&O / Oxygen:
Vital Signs
Temp Pulse Resp BP Pulse Ox
97.8 F 70 16 111/63 99
11/28/23 08:27 11/28/23 08:50 11/28/23 08:27 11/28/23 08:50 11/28/23 08:27
Intake and Output
11/27/23 11/28/23 11/29/23
06:59 06:59 06:59
Intake Total 1660 / 1660 880 / 880
Balance 1660 / 1660 880 / 880
SaO2 99
Nasal Cannula flow liters per 3
minute
Physical Exam
General: Respiratory Distress (mild) and Comfortable
HEENT: Normocephalic and Anicteric
Cardiovascular: S1-S2 and Peripheral Edema (+2 LE pitting edema b/l)
Respiratory: Wheeze (negative), Crackles (heard posteriorly in NIKI), Rhonchi (n), Accessory Resp Muscle Use (yes), Stridor (n) and Other (Diminished breath sounds bilaterally (R>L))
GI: Soft, Non Distended, Non Tender and Normal Bowel Sounds
Neurology: AO x 3 and Tremors (negative)
Skin: Warm, Dry, Cyanosis (n), Jaundice (n) and Rash (n)
Labs/Micro/Reports
Lab Data
11/28/23 07:34
11/28/23 07:34
Microbiology
11/23/23 22:12 Blood/Venous Blood Culture - Preliminary
No Growth in 4 days- Final report to follow
11/23/23 21:15 Blood/Venous Blood Culture - Preliminary
No Growth in 4 days- Final report to follow
--- NOTE | 2023-11-28 12:08 | W.PN.ID1 ---
Date of Service
Date of Service: November 28, 2023
Today's Communication
Continue cefepime 2g IV q8h (d6 of 7 abx)
Assessment / Plan
# Bilateral pulm consolidations concerning for PNA
- Continue cefepime 2g IV q8h (d6 of 7 abx)
- At time of discharge, transition to levofloxacin 750mg po qd through 11/28/23.
# Acute embolic CVA
# p Afib
# Recurrent breast CA with mets to lungs, bone, prob liver
# Recurrent malignant pleural effusions with bilateral pleurX catheters.
Right catheter recently exchanged at [facility] 11/11; s/p pleural lysis 11/24/23
# Recent outside finding of bilateral hydronephrosis with soft tissue throughout right ureter concerning neoplasm.
To follow up with Urology at [facility].
Chief Complaint
-: Pneumonia
Subjective / Review of Systems
Feels stable
Vital Signs / Physical Exam
Vital Signs
Vital Signs
Temp Pulse Resp BP Pulse Ox
97.8 F 70 16 111/63 99
11/28/23 08:27 11/28/23 08:50 11/28/23 08:27 11/28/23 08:50 11/28/23 08:27
Physical Exam
Constitutional: No Acute Distress
Cardiovascular: Regular Rate and S1/S2
Pulmonary: Other (decreases BS bases)
Extremities: Edema
Objective Data
Lab Data
Lab Results
11/28/23 07:34
11/28/23 07:34
PT 14.0 Sec (11.4-14.6) 11/27/23 05:46
INR 1.07 11/27/23 05:46
Estimated Creat Clear 98 ml/min 11/28/23 07:34
Lactic Acid 1.2 mmol/L (0.7-2.0) 11/23/23 21:15
Total Bilirubin 0.4 mg/dl (0.2-1.3) 11/28/23 07:34
AST 78 U/L (14-36) H 11/28/23 07:34
ALT 76 U/L (0-35) H 11/28/23 07:34
Alkaline Phosphatase 424 U/L (38-126) H 11/28/23 07:34
Most recent labs reviewed.
Micro Results:
11/23/23 22:12 Blood Culture - Preliminary
Blood/Venous No Growth in 4 days- Final report to follow
11/23/23 21:15 Blood Culture - Preliminary
Blood/Venous No Growth in 4 days- Final report to follow
11/24/23 06:16 Nasal Screen MRSA (PCR) - Final
Nose MRSA not detected - performed by PCR methodology.
--- NOTE | 2023-11-28 12:16 | PTCARENOTE ---
Assumed care of pt from previous nurse. Pt with some pain to back, dilaudid provided with positive relief. Pt is on 3L's 02 via nc sating 99%, cristina and at rest. Pt call tyler is within reach, pt rings suzie. will cont to monitor.
[2023-11-28 15:32] VITALS: BP 118/66
[2023-11-28] MEDS: ZOFRAN 4 MG IV (15:35)
[2023-11-28 16:30] VITALS: PULSE 76; O2SAT 99
[2023-11-28] MEDS: LASIX 20 MG PO (18:09)
[2023-11-28] MEDS: COLACE 100 MG PO ×2 (18:12→20:20)
[2023-11-28] MEDS: ALDACTONE 25 MG PO (18:12)
[2023-11-28] MEDS: LOVENOX 40 MG SC (18:13)
--- NOTE | 2023-11-28 19:12 | PTCARENOTE ---
Dtr drained patients left drain for 725 of yellow pleural flud.
[2023-11-28] MEDS: DUONEB 3 ML INH (20:32)
[2023-11-28 23:22] VITALS: BP 116/67
[2023-11-29] MEDS: MAXIPIME 2000 MG IV ×3 (01:45→16:53)
[2023-11-29] MEDS: STERILE WATER FOR INJECTION 10 ML IV ×3 (01:46→16:53)
[2023-11-29] MEDS: DILAUDID 0.5 MG IV ×5 (01:49→23:18)
[2023-11-29 05:14] LABS: % Basophils 1.1 % (0-2); % Eosinophils 3.7 % (0-6); % Immature Granulocytes 1.5 % (0-0.5); % Lymphocytes 8.9 % (20.5-51.1); % Monocytes 5.9 % (1.7-9.3); % Neutrophils 78.9 % (42.2-75.2); Absolute Basophils 0.1 10^3/uL (0-0.2); Absolute Eosinophils 0.2 10^3/uL (0-0.7); Absolute Immature Granulocytes 0.1 10^3/uL (0-0.05); Absolute Lymphocytes 0.4 10^3/uL (1.2-3.4); Absolute Monocytes 0.3 10^3/uL (0.1-0.6); Absolute Neutrophils 3.6 10^3/uL (1.4-6.5); Hematocrit 28.4 % (37.0-47.0); Hemoglobin 9.5 g/dL (12.0-16.0); Mean Corp Hgb Conc. 33.5 g/dL (33.0-37.0); Mean Corpuscular Hgb 28.7 pg (27.0-31.0); Mean Corpuscular Volume 85.8 fL (81.0-99.0); Mean Platelet Volume 10.7 fL (7.4-10.4); Nucleated Red Blood Cells % 0 %; Platelet Count 363 10^3/uL (130-400); Red Blood Cell Count 3.31 10^6/uL (4.20-5.40); Red Cell Dist. Width 16.3 % (11.5-14.5); White Blood Cell Count 4.6 10^3/uL (4.8-10.8)
[2023-11-29 05:35] LABS: Blood Urea Nitrogen 16 mg/dl (7-17); Calcium 8.6 mg/dl (8.4-10.2); Carbon Dioxide 35 mmol/L (22-30); Chloride 97 mmol/L (98-107); Estimated Creatinine Clearance 98 ml/min; Glucose 99 mg/dl (70-99); Potassium 4.8 mmol/L (3.5-5.1); Sodium 131 mmol/L (135-145); eGFR > 60.00
[2023-11-29 07:40] VITALS: BP 106/66
[2023-11-29] MEDS: COREG 3.125 MG PO ×2 (08:52→20:10)
[2023-11-29] MEDS: MIRALAX 17 GRAMS PO (08:53)
[2023-11-29] MEDS: VITAMIN D3 (cholecalciferol) 25 MCG PO (08:53)
[2023-11-29] MEDS: COLACE 100 MG PO ×2 (08:53→20:10)
[2023-11-29] MEDS: FOLVITE 1 MG PO (08:53)
[2023-11-29] MEDS: DIOVAN 40 MG PO (08:53)
[2023-11-29] MEDS: VITAMIN C 500 MG PO (08:54)
[2023-11-29] MEDS: LOW STRENGTH ASPIRIN 81 MG PO (08:54)
[2023-11-29] MEDS: VITAMIN B-12 1000 MCG PO (08:54)
[2023-11-29] MEDS: ZOFRAN 4 MG IV (09:11)
--- NOTE | 2023-11-29 09:51 | W.PN.PUL.V3 ---
Today's Communication / Plan
-
Wean oxygen.
Pleurx catheter drainages.
Antibiotics.
Consider anticoagulation-see neurology notes.
Primary team discussing Eliquis with patient
Assessment
-
58-year-old female with recurrent breast cancer with pulmonary metastases and bilateral recurrent pleural effusions status post left pleural catheter as well as right pleural catheter with recent replacement at [facility] now presents with shortness of
breath, pain in the back, and recurrent pleural effusions-pulmonary consulted for recurrent pleural effusions 11/24/2023.
Impression:
Recurrent bilateral loculated pleural effusions
Status post left Pleurx catheter-drained 3 times weekly-averaging over 700 mL
Status post right Pleurx catheter x 2-last drainage output, previously required tPA
Status post TPA/right pleural lysis 11/24/23
Bilateral consolidations/pneumonia
Immunocompromised status postchemotherapy
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
Abdominal pain secondary to abdominal ascites and probable hepatic metastases
Elevated LFTs
Bilateral lymphedema
Hyponatremia
Lhqpsy-ixsydxgfgo-uhfwnibxsg 9.7
Acute/subacute ischemic CVA -seen on brain MRI on 11/24/2023 involving the left-sided parietal lobe/centrum semiovale region
Conditions present prior to admission:
Breast CA/mastectomy/XRT/chemotherapy-[facility].
Uterine/cervical cancer status post XRT.
Recurrent bilateral pleural effusions status post bilateral Pleurx catheters.
Migraines.
PAF.
Hypertension.
x 3. Hernia repair. Bilateral mastectomy.
Plan
Respiratory status has not changed significantly-significant shortness of breath with some improvement with Pleurx catheter drainages.
Supple mental option as needed.
High flow oxygen if needed.
Her respiratory decompensation likely related to pneumonia and bilateral loculated pleural effusions
Supplemental oxygen-attempt to wean and assess discharge supplemental oxygen needs
BiPAP if needed-has not needed
Nebulizers if needed-currently not bronchospastic
Aspiration precautions
Incentive spirometry
Mucus clearing devices
Cultures reviewed
Blood cultures negative (collected 11/23/2023)
MRSA screen negative
Unable to produce sputum
Empiric antibiotics initiated-vancomycin and aztreonam-now changed to cefepime since 11/25/2023.
Infectious disease following-correspondence reviewed
Visual changes with blurred vision involving her right eye
Brain MRI 11/24/23-suspect tiny punctate nonhemorrhagic acute/subacute infarct high left parietal lobe/central semi-ovale region
Neurology on board � continue with ASA, neurological checks with NIH stroke scale every shift and as needed for any change in mental status, and anticoagulation with Eliquis rec'd; patient currently only on DVT ppx w/ LMWH
Primary team discussing intensification of anticoagulation with patient-she is thinking about it
Follow radiographically
Historically left pleural catheter is draining nearly 700 mL 3 times weekly-continue to drain as needed- consult interventional radiology for thrice weekly left Pleurx drainage
Historically right pleural catheter which was recently replaced at [facility] has drained much less
Interventional radiology-right pleural lysis/TPA 11/24/[address] Cavazos consulted interventional radiology 11/25/2023 for bilateral TIW Pleurx catheter drainage
Analgesia for osseous metastatic disease per primary service
Monitor for oversedation
Trend LFTs
Echocardiogram 11/25/2023-EF 61%, no significant valvular disease, PA systolic 30, no change compared to 2019
Oncological evaluation noted-Dr. Rutherford correspondence reviewed
Monitor hemoglobin
Transfuse as needed to keep Hb>7, plt>20k
DVT prophylaxis-LMWH ppx dosing --> as per the recommendations of neurology given her Hx of A-fib and ischemic L-sided CVA with high risk of cardio-embolic CVA, consider starting NOAC with Eliquis
Nutrition
Early mobilization/physical therapy
Reviewed with nursing
Diagnostic data:
Chest x-ray 10/29-NAD
Chest x-ray 03/12/2023-moderate loculated right pleural effusion which is new
CT chest 07/21/2023-negative for pulmonary embolism, pleural fluid loculated, moderate right pleural effusion, near complete consolidation basal segment right lower lobe suspicious for pneumonia, hepatic lesions
CT chest 12/12-no evidence for pulm embolism, moderate loculated bilateral pleural effusions improved on the right progressed on the left, moderate bibasilar consolidations concerning for pneumonia, findings suggestive of mild blastic osseous
metastatic disease mildly progressed, probable hepatic metastases and mild upper abdominal ascites
Thoracentesis 03/13/23-1300 mL straw-colored fluid
Tunneled pleural catheter placement 04/12/2023-asept pleural catheter placed on the right
Tunneled pleural catheter placement 06/23/2023-new tunneled catheter placed on the left
Echocardiogram 11/24/2019-EF 55-60%, stage I diastolic dysfunction, PA systolic estimated 29
Brain MRI 11-24-2023:
Suspect tiny punctate nonhemorrhagic acute/subacute infarct in the high left parietal lobe/centrum semiovale region.
Nonspecific subcentimeter focus of altered signal in the left cerebellum, possibly site of gliosis. Consider outpatient follow-up contrast-enhanced MRI brain in 3-6 months.
Subjective Data
-
Date of Service:
Date of Service: November 29, 2023
Chief Complaint: Pulmonary Follow Up and Dyspnea Follow Up
Subjective:
Feels about the same, still has shortness of breath with minimal exertion, nauseous this morning, receiving Zofran, no chest pain, productive cough, or abdominal pain
Review of Systems
General: Other (per HPI)
Objective Data
Data Reviewed
Vital Signs / I&O:
Vital Signs
Temp Pulse Resp BP Pulse Ox
97.9 F 74 18 106/66 99
11/29/23 07:40 11/29/23 07:40 11/29/23 07:40 11/29/23 07:40 11/29/23 07:40
Intake and Output
11/28/23 11/29/2324
06:59 06:59 06:59
Intake Total 1120 / 1120
Output Total 725 / 725
Balance 395 / 395
SaO2: 99
Nasal Cannula flow liters per minute: 3
Physical Exam
General: Respiratory Distress (mild) and Comfortable
HEENT: Normocephalic and Anicteric
Cardiovascular: Regular Rhythm and Peripheral Edema (+2 LE pitting edema b/l)
Respiratory: Wheeze (negative), Crackles (heard posteriorly in NIKI), Rhonchi (n), Accessory Resp Muscle Use (yes), Stridor (n) and Other (Diminished breath sounds bilaterally (R>L))
GI: Soft, Non Distended, Non Tender and Normal Bowel Sounds
Neurology: AO x 3 and Tremors (negative)
Skin: Warm, Dry, Cyanosis (n), Jaundice (n) and Rash (n)
Labs/Micro/Reports
Lab Data
11/29/23 04:46
11/29/23 04:46
Microbiology
11/23/23 22:12 Blood/Venous Blood Culture - Final
No Growth - Final Report
11/23/23 21:15 Blood/Venous Blood Culture - Final
No Growth - Final Report
--- NOTE | 2023-11-29 11:29 | W.PN.ONC ---
Today's Communication / Plan
-
Acute problems as per other services. I have little else to add at this point. She will be following up with the [facility]. Agree with suggestion that she should be anticoagulated.
Impression
Impression
Breast CA/mastectomy/XRT/chemotherapy-[facility]
History of stage III cervical carcinoma
Acute CVA
Recurrent bilateral loculated pleural effusions
Status post left Pleurx catheter-drained 3 times weekly-averaging over 700 mL
Status post right Pleurx catheter x 2-last drainage output, previously required tPA
Bilateral consolidations/pneumonia
Immunocompromised status postchemotherapy
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
Abdominal pain secondary to abdominal ascites and probable hepatic metastases
Elevated LFTs
Bilateral lymphedema
Hyponatremia
Krvtyy-ikwjlwmedm-acnvdmkscm 9.7
Migraines
Remote PE
PAF
Hypertension
Plan
Plan
Acute embolic CVA no [employer] mets noted
MBC presenting as recurrent pleural effusion, hepatic and bone metastases poorly controlled with Taxol will likely need to consider alternate therapy
Reevaluated pleural fluid for cytology and IHC for HER-2 negative -03/13
Will likely need anticoagulation
Consult neurology
Hyponatremia improving
Patient has been historically noncompliant
Will follow offered to return to the office and comanage with [facility]
Subjective/Objective
Subjective/Objective
She is feeling about the same, perhaps a little better. Her breathing is stable. She denies any pain. Examination is unchanged.
Vital Signs:
Vital Signs
Temp Pulse Resp BP Pulse Ox
97.9 F 74 18 106/66 99
11/29/23 07:40 11/29/23 07:40 11/29/23 07:40 11/29/23 07:40 11/29/23 09:51
Lab Results:
Laboratory Data
WBC 4.6 10^3/uL (4.8-10.8) L 11/29/23 04:46
Hgb 9.5 g/dL (12.0-16.0) L 11/29/23 04:46
Plt Count 363 10^3/uL (130-400) D 11/29/23 04:46
PT 14.0 Sec (11.4-14.6) 11/27/23 05:46
INR 1.07 11/27/23 05:46
eGFR > 60.00 11/29/23 04:46
[2023-11-29] MEDS: LASIX 20 MG PO (11:49)
[2023-11-29] MEDS: ALDACTONE 25 MG PO (11:49)
[2023-11-29] MEDS: LOVENOX SC (11:50)
[2023-11-29 12:50] VITALS: BP 118/76; PULSE 77; O2SAT 94
[2023-11-29] MEDS: DUONEB 3 ML INH (14:04)
--- NOTE | 2023-11-29 15:14 | CM ---
CM following for discharge needs. Patient not medically stable for discharge today.
--- NOTE | 2023-11-29 15:27 | W.PN.HOSP.TC ---
Today's Communication/Plan
-
Wean O2
DC planning
Assessment / Plan
Assessment / Plan
A/P:
# Acute hypoxic respiratory insufficiency
# Moderate loculated bilateral likely malignant pleural effusions, progressed on the left, improved on the right
# Right sided Pleurx catheter with minimal drainage placed the dorsum
# Left-sided pleural catheter with moderate drainage placed at Ab previously
-IR consulted for tPA of the right Pleurx catheter. S/p right pleural lysis on 11/23.
-Pulmonology consulted and appreciated input
-Oncology consulted and appreciated input.
-cw PT OT stephanie
-Dr Talbot
- Discussed with outpatient oncologist today, Dr. Michelle Arana ([phone])
-Discussed with changing aspirin to Eliquis but patient hesitant and wants to keep aspirin for now. She still wants to hold on AC for her stroke
broached the subject of possibility of changing CODE STATUS DNR or hospice care but at the moment patient adamant she wants to remain full code and wants to continue active treatment. Overall prognosis guarded.
# Moderate bibasilar consolidation concerning for pneumonia progressed on the left in the setting of immunocompromise status due to chemotherapy
- blood cultures and no growth so far
-Vancomycin/aztreonam changed to IV cefepime by ID.
-Continue IV cefepime day number7 out of 7.
-ID consult and follow-up appreciated
# Right visual loss--> stroke related and possible component of migraine
-Out of the time window for tPA/TNK
-MRI of the brain confirms stroke in the left parietal lobe/centrum semiovale
-Continue aspirin and consideration for changing to Eliquis. Patient has reservations even with aspirin at this point.
-No statins given elevated LFTs.
-Ultrasound carotids no significant stenosis
-Reviewed echocardiogram
#Abdominal discomfort
There is evidence however of probable hepatic metastasis and probably abdominal ascites as well as known cervical cancer some hydronephrosis with several processes going on on her abdomen.
# Upper back pain likely due to blastic osseous metastatic disease
-Upper back pain is nonspecific
-Morphine for pain
# Abdominal pain secondary to mild upper abdominal ascites/probable hepatic metastases
# Transaminitis secondary to likely hepatic metastases
-Continue spironolactone
-Continue Lasix
# Bilateral lymphedema secondary to prior uterine radiation/venous insufficiency/hypoalbuminemia
-Continue Lasix/Spironolactone
-Patient reportedly had venous ultrasounds most recently 2 months ago which were negative for DVT
-Continue compression
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
-Check urine sodium, osmolality
-Fluid restriction 40 ounces
Breast cancer status postmastectomy and/radiation, received chemotherapy yesterday
Uterine cancer/cervical cancer status post radiation
Paroxysmal atrial fibrillation
-Continue Coreg
-Continue aspirin
Essential hypertension
-Continue losartan
History of migraines
Full code
DVT prophylaxis�heparin change to lovenox
If her breathing improved and O2 stable will start DC plan
Anticipated Discharge: 24 - 48 hours
Subjective/Interval History
-
Date of Service: November 29, 2023
she feels little more short of breath today she just had some fluid drained from the right side by IR. She got 725ml out of left Pleurx yesterday
she is troubled with right eye vision deficit.
Objective Data
-
Labs:
Laboratory Results
11/29/23
04:46
WBC 4.6 L
Hgb 9.5 L
Hct 28.4 L
Plt Count 363 D
Sodium 131 L
Potassium 4.8
Chloride 97 L
Carbon Dioxide 35 H
BUN 16
Creatinine 0.5 L
Glucose 99
Calcium 8.6
Vital Signs:
Vital Signs
Temp Pulse Resp BP Pulse Ox
97.9 F 74 18 106/66 88
11/29/23 07:40 11/29/23 07:40 11/29/23 07:40 11/29/23 07:40 11/29/23 13:22
I&O
11/28/23 11/29/23 11/30/23
06:59 06:59 06:59
Intake Total 1120 / 1120
Output Total 725 / 725
Balance 395 / 395
Review of Systems
-
Cardiac: Denies Chest Pain
Abdomen/GI: Denies Abdominal Pain, Nausea or Vomiting
Neuro: Denies Dizzy or Headache
Physical Exam
-
Respiratory: Non Labored Respirations (slightly tachypneic) and Decreased Breath Sounds (at bases); Negative Wheezes or Accessory Resp Muscle Use
Cardiac: Regular Rhythm and S1/S2
Neuro: AO x 3
Data Reviewed
-
Labs: Labs Reviewed by me
--- NOTE | 2023-11-29 15:27 | PN.IRAD.UPD ---
Update Note - IRAD
- -
Drained 250ml of fluid from right sided Pleurx catheter. Site redressed with gauze and a tegaderm. Pt wants to drain the left side Asept catheter on Wednesday 11/29.
Tadeo Lakhani RT(R)()
[2023-11-29] MEDS: LOVENOX 40 MG SC (16:54)
[2023-11-29 17:00] VITALS: BP 95/55
--- NOTE | 2023-11-29 17:00 | PTCARENOTE ---
Addendum entered by Yani Garces RN 11/29/23 17:49:
11/28- Observed intermittent short episodes of Afib on court monitor #26 which self-resolves into NSR after 1-2 beats. Educated Patient on AFib. She verbalized understanding. Will continue to monitor.
Original Note:
11/28- Patient c/o chest pain and SOB. She states it comes in intermittent episodes, and she tries to breathe through it. This is a known issue for her. +PulsesX4 but irregular Apical. 12lead EKG shows NSR except for some Septal Afib and BBB in
V2 only. Skin=warm/pink/dry, Cap refill<2sec. HR=84, POX=96%; RR=22; BP= 95/55. Notified Physician. Continue to Monitor.
[2023-11-29 19:21] VITALS: BP 116/70
[2023-11-29 23:37] VITALS: BP 120/68
[2023-11-30] VITALS (7 sets, daily range): BP systolic 105–130; BP diastolic 65–80; PULSE 78; O2SAT 98; BMI 25.3
[2023-11-30] MEDS: MAXIPIME 2000 MG IV (01:11)
[2023-11-30] MEDS: STERILE WATER FOR INJECTION 10 ML IV (01:11)
[2023-11-30] MEDS: VITAMIN D3 (cholecalciferol) 25 MCG PO (08:14)
[2023-11-30] MEDS: DIOVAN 40 MG PO (08:15)
[2023-11-30] MEDS: LOW STRENGTH ASPIRIN 81 MG PO (08:18)
[2023-11-30] MEDS: VITAMIN C 500 MG PO (08:18)
[2023-11-30] MEDS: COREG 3.125 MG PO ×2 (08:19→20:03)
[2023-11-30] MEDS: COLACE 100 MG PO ×2 (08:19→20:03)
[2023-11-30] MEDS: VITAMIN B-12 1000 MCG PO (08:19)
[2023-11-30] MEDS: MIRALAX 17 GRAMS PO (08:19)
[2023-11-30] MEDS: FOLVITE 1 MG PO (08:19)
[2023-11-30] MEDS: DILAUDID 0.5 MG IV ×3 (09:30→20:11)
[2023-11-30] MEDS: ZOFRAN 4 MG IV (09:41)
--- NOTE | 2023-11-30 10:22 | W.PN.PUL.V3 ---
Today's Communication / Plan
-
Wean oxygen
Antibiotics per infectious disease-discontinued
Right and left Pleurx catheter drainage thrice weekly
Assessment
-
58-year-old female with recurrent breast cancer with pulmonary metastases and bilateral recurrent pleural effusions status post left pleural catheter as well as right pleural catheter with recent replacement at [facility] now presents with shortness of
breath, pain in the back, and recurrent pleural effusions-pulmonary consulted for recurrent pleural effusions 11/24/2023.
Impression:
Recurrent bilateral loculated pleural effusions
Status post left Pleurx catheter-drained 3 times weekly-averaging over 700 mL
Status post right Pleurx catheter x 2-last drainage output, previously required tPA
Status post TPA/right pleural lysis 11/24/23
Bilateral consolidations/pneumonia
Immunocompromised status postchemotherapy
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
Abdominal pain secondary to abdominal ascites and probable hepatic metastases
Elevated LFTs
Bilateral lymphedema
Hyponatremia
Inmolv-pzbizcxzio-jgpieznujg 9.7
Acute/subacute ischemic CVA -seen on brain MRI on 11/24/2023 involving the left-sided parietal lobe/centrum semiovale region
Conditions present prior to admission:
Breast CA/mastectomy/XRT/chemotherapy-[facility].
Uterine/cervical cancer status post XRT.
Recurrent bilateral pleural effusions status post bilateral Pleurx catheters.
Migraines.
PAF.
Hypertension.
x 3. Hernia repair. Bilateral mastectomy.
Plan
Respiratory status has not changed significantly-significant shortness of breath with some improvement with Pleurx catheter drainages.
Continue supplemental oxygen as needed-assess discharge supplemental oxygen needs
Her respiratory decompensation likely related to pneumonia and bilateral loculated pleural effusions
Supplemental oxygen-attempt to wean and assess discharge supplemental oxygen needs
BiPAP if needed-has not needed
Nebulizers if needed-currently not bronchospastic
Aspiration precautions
Incentive spirometry
Mucus clearing devices
Cultures reviewed
Blood cultures negative (collected 11/23/2023)
MRSA screen negative
Unable to produce sputum
Empiric antibiotics initiated-vancomycin and aztreonam-now changed to cefepime since 11/25/2023.
Infectious disease following-correspondence reviewed-antibiotics were discontinued and infectious disease signed off 11/30/2023
Visual changes with blurred vision involving her right eye
Brain MRI 11/24/23-suspect tiny punctate nonhemorrhagic acute/subacute infarct high left parietal lobe/central semi-ovale region
Neurology on board � continue with ASA, neurological checks with NIH stroke scale every shift and as needed for any change in mental status, and anticoagulation with Eliquis rec'd; patient currently only on DVT ppx w/ LMWH
Primary team discussing intensification of anticoagulation with patient-she is thinking about it
Continue to follow radiographically on occasion
Historically left pleural catheter is draining nearly 700 mL 3 times weekly-continue to drain as needed- consult interventional radiology for thrice weekly left Pleurx drainage
Historically right pleural catheter which was recently replaced at [facility] has drained much less
Interventional radiology-right pleural lysis/TPA 11/24/[address] Cavazos consulted interventional radiology 11/25/2023 for bilateral TIW Pleurx catheter drainage
Right and left Pleurx catheter is being drained intermittently
Analgesia for osseous metastatic disease per primary service
Monitor for oversedation
Note: Echocardiogram 11/25/2023-EF 61%, no significant valvular disease, PA systolic 30, no change compared to 2019
Oncological evaluation noted-Dr. Rutherford as well as Dr. Rose correspondence reviewed-they signed off-recommend follow-up at [facility]
Monitor hemoglobin
Transfuse as needed to keep Hb>7, plt>20k
DVT prophylaxis-LMWH ppx dosing --> as per the recommendations of neurology given her Hx of A-fib and ischemic L-sided CVA with high risk of cardio-embolic CVA, consider starting NOAC with Eliquis
Nutrition
Early mobilization/physical therapy
Reviewed with nursing
Diagnostic data:
Chest x-ray 10/29-NAD
Chest x-ray 03/12/2023-moderate loculated right pleural effusion which is new
CT chest 07/21/2023-negative for pulmonary embolism, pleural fluid loculated, moderate right pleural effusion, near complete consolidation basal segment right lower lobe suspicious for pneumonia, hepatic lesions
CT chest 12/12-no evidence for pulm embolism, moderate loculated bilateral pleural effusions improved on the right progressed on the left, moderate bibasilar consolidations concerning for pneumonia, findings suggestive of mild blastic osseous
metastatic disease mildly progressed, probable hepatic metastases and mild upper abdominal ascites
Thoracentesis 03/13/23-1300 mL straw-colored fluid
Tunneled pleural catheter placement 04/12/2023-asept pleural catheter placed on the right
Tunneled pleural catheter placement 06/23/2023-new tunneled catheter placed on the left
Echocardiogram 11/24/2019-EF 55-60%, stage I diastolic dysfunction, PA systolic estimated 29
Brain MRI 11-24-2023:
Suspect tiny punctate nonhemorrhagic acute/subacute infarct in the high left parietal lobe/centrum semiovale region.
Nonspecific subcentimeter focus of altered signal in the left cerebellum, possibly site of gliosis. Consider outpatient follow-up contrast-enhanced MRI brain in 3-6 months.
Subjective Data
-
Date of Service:
Date of Service: November 30, 2023
Chief Complaint: Pulmonary Follow Up and Dyspnea Follow Up
Subjective:
Feels about the same, still has significant shortness of breath with minimal exertion, no chest pain or abdominal pain
Review of Systems
General: Other (Per HPI)
Objective Data
Data Reviewed
Vital Signs / I&O:
Vital Signs
Temp Pulse Resp BP Pulse Ox
98.4 F 73 16 130/75 98
11/30/23 07:30 11/30/23 07:30 11/30/23 07:30 11/30/23 07:30 11/30/23 07:30
Intake and Output
11/29/23 11/30/23 12/01/23
06:59 06:59 06:59
Intake Total 1120 / 1120 480 / 480
Output Total 725 / 725
Balance 395 / 395 480 / 480
SaO2: 98
Nasal Cannula flow liters per minute: 3
Physical Exam
General: Respiratory Distress (mild) and Comfortable
HEENT: Normocephalic and Anicteric
Cardiovascular: Regular Rhythm and Peripheral Edema (+2 LE pitting edema b/l)
Respiratory: Wheeze (negative), Crackles (heard posteriorly in NIKI), Rhonchi (n), Accessory Resp Muscle Use (yes), Stridor (n) and Other (Diminished breath sounds bilaterally (R>L))
GI: Soft, Non Distended, Non Tender and Normal Bowel Sounds
Neurology: AO x 3 and Tremors (negative)
Skin: Warm, Dry, Cyanosis (n), Jaundice (n) and Rash (n)
Labs/Micro/Reports
Lab Data
11/29/23 04:46
11/29/23 04:46
Microbiology
11/23/23 22:12 Blood/Venous Blood Culture - Final
No Growth - Final Report
11/23/23 21:15 Blood/Venous Blood Culture - Final
No Growth - Final Report
--- NOTE | 2023-11-30 10:30 | W.PN.ID1 ---
Date of Service
Date of Service: November 30, 2023
Today's Communication
DC cefepime.
ID will sign off.
Assessment / Plan
# Bilateral pulm consolidations concerning for PNA
- Completed 7 days of cefepime 2g IV q8h.
- DC cefepime.
- ID will sign off.
# Acute embolic CVA
# p Afib
# Recurrent breast CA with mets to lungs, bone, prob liver
# Recurrent malignant pleural effusions with bilateral pleurX catheters.
Right catheter recently exchanged at [facility] 11/11; s/p pleural lysis 11/24/23
# Recent outside finding of bilateral hydronephrosis with soft tissue throughout right ureter concerning neoplasm.
To follow up with Urology at [facility].
Chief Complaint
-: Pneumonia
Subjective / Review of Systems
Remains trouble breathing/lung tightness.
Vital Signs / Physical Exam
Vital Signs
Vital Signs
Temp Pulse Resp BP Pulse Ox
98.4 F 73 16 130/75 98
11/30/23 07:30 11/30/23 07:30 11/30/23 07:30 11/30/23 07:30 11/30/23 10:22
Physical Exam
Constitutional: No Acute Distress
Pulmonary: Other (Decreased BS bilaterally. )
Gastrointestinal: Soft, Non Tender and Non Distended
Extremities: Edema
Neurological: AO x 3
Lines: Port (no erythema)
Objective Data
Lab Data
Lab Results
11/29/23 04:46
11/29/23 04:46
PT 14.0 Sec (11.4-14.6) 11/27/23 05:46
INR 1.07 11/27/23 05:46
Estimated Creat Clear 98 ml/min 11/29/23 04:46
Lactic Acid 1.2 mmol/L (0.7-2.0) 11/23/23 21:15
Total Bilirubin 0.4 mg/dl (0.2-1.3) 11/28/23 07:34
AST 78 U/L (14-36) H 11/28/23 07:34
ALT 76 U/L (0-35) H 11/28/23 07:34
Alkaline Phosphatase 424 U/L (38-126) H 11/28/23 07:34
Most recent labs reviewed.
Micro Results:
11/23/23 22:12 Blood Culture - Final
Blood/Venous No Growth - Final Report
11/23/23 21:15 Blood Culture - Final
Blood/Venous No Growth - Final Report
11/24/23 06:16 Nasal Screen MRSA (PCR) - Final
Nose MRSA not detected - performed by PCR methodology.
Care Review
Plan reviewed with: Physician (Dr. Cuello. )
[2023-11-30] MEDS: ALDACTONE 25 MG PO (11:50)
[2023-11-30] MEDS: LASIX 20 MG PO (11:50)
--- NOTE | 2023-11-30 14:55 | PN.IRAD.UPD ---
Update Note - IRAD
- -
800ml clear yellow pleural fluid drained via LEFT ASEPT catheter at bedside. New clean, dry dressing placed over site. Patient tolerated procedure well.
--- NOTE | 2023-11-30 15:16 | W.PN.HOSP.TC ---
Today's Communication/Plan
-
CW pain regimen
Contact primary Onc at [place]
DC planning
Assessment / Plan
Assessment / Plan
A/P:
# Acute hypoxic respiratory insufficiency
# Moderate loculated bilateral likely malignant pleural effusions, progressed on the left, improved on the right
# Right sided Pleurx catheter with minimal drainage placed the dorsum
# Left-sided pleural catheter with moderate drainage placed at [place] previously
-IR consulted for tPA of the right Pleurx catheter. S/p right pleural lysis on 11/23.
-Pulmonology consulted and appreciated input
-Oncology consulted and appreciated input.
-CW pleural tap 3/week via pleurax cath
- CW O2 via NC
-Dr Talbot
- Discussed with outpatient oncologist today, Dr. Michelle Arana ([phone])
-Discussed with changing aspirin to Eliquis but patient hesitant and wants to keep aspirin for now. She still wants to hold on AC for her stroke
broached the subject of possibility of changing CODE STATUS DNR or hospice care but at the moment patient adamant she wants to remain full code and wants to continue active treatment. Overall prognosis guarded.
# Moderate bibasilar consolidation concerning for pneumonia progressed on the left in the setting of immunocompromise status due to chemotherapy
- blood cultures and no growth so far
-Vancomycin/aztreonam changed to IV cefepime by ID.
-finished IV cefepime .
-ID consult and follow-up appreciated
# Right visual loss--> stroke related and possible component of migraine
-Out of the time window for tPA/TNK
-MRI of the brain confirms stroke in the left parietal lobe/centrum semiovale
-Continue aspirin and consideration for changing to Eliquis. Patient has reservations even with aspirin at this point.
-No statins given elevated LFTs.
-Ultrasound carotids no significant stenosis
-Reviewed echocardiogram
#Abdominal discomfort and rt flank pain and tenderness
There is evidence however of probable hepatic metastasis and probably abdominal ascites as well as known cervical cancer some hydronephrosis with several processes going on on her abdomen.Will check with primary onc re:prior mets in that area
# Upper back pain likely due to blastic osseous metastatic disease
-Upper back pain is nonspecific
-Morphine for pain
# Abdominal pain secondary to mild upper abdominal ascites/probable hepatic metastases
# Transaminitis secondary to likely hepatic metastases
-Continue spironolactone
-Continue Lasix
# Bilateral lymphedema secondary to prior uterine radiation/venous insufficiency/hypoalbuminemia
-Continue Lasix/Spironolactone
-Patient reportedly had venous ultrasounds most recently 2 months ago which were negative for DVT
-Continue compression
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
-Check urine sodium, osmolality
-Fluid restriction 40 ounces
Breast cancer status postmastectomy and/radiation, received chemotherapy yesterday
Uterine cancer/cervical cancer status post radiation
Paroxysmal atrial fibrillation
-Continue Coreg
-Continue aspirin
Essential hypertension
-Continue losartan
History of migraines
Full code
DVT prophylaxis�heparin change to lovenox
DC in am on pain regimen if her abdominal findings are not new findings
Anticipated Discharge: Within 24 hours
Subjective/Interval History
-
Date of Service: November 30, 2023
one of her major complaint now is that she has has right flank pain. She is taking pain medication for that in the hospital. She normally not on any pain medication. She does not remember having any cancer to the right kidney or to the liver.
Breathing up-and-down .. Still having large amounts of pleural fluid aspiration via Pleurx catheter. She is on 3 L of oxygen which is the usual for her.
Objective Data
-
Vital Signs:
Vital Signs
Temp Pulse Resp BP Pulse Ox
98.0 F 75 16 119/65 100
11/30/23 11:17 06/11/24 11:17 11/30/23 11:17 11/30/23 11:17 11/30/23 11:17
I&O
11/29/23 11/30/23 12/01/23
06:59 06:59 06:59
Intake Total 1120 / 1120 480 / 480
Output Total 725 / 725
Balance 395 / 395 480 / 480
Review of Systems
-
Constitutional: Denies Fever
Abdomen/GI: Reports Abdominal Pain (rt flank); Denies Nausea or Vomiting
Neuro: Denies Dizzy
Physical Exam
-
General: No Apparent Distress
HEENT: Moist Mucous Membranes
Respiratory: Non Labored Respirations; Negative Wheezes or Accessory Resp Muscle Use
Cardiac: Regular Rhythm and S1/S2
GI: Soft
Genito-urinary: Costovertebral Angle Tend (rt side)
Neuro: AO x 3
Psych: Calm
--- NOTE | 2023-11-30 16:55 | CM ---
Attempted to see patient who was washing up in bathroom . Patient independent but will continue to need home RN, ANDREW with [facility].
--- NOTE | 2023-11-30 17:30 | PTCARENOTE ---
6/12-Intermittent episodes of substernal chest pain that patient describes as 'tightness and fluttering.' She is tachypneic, shallow breathing but clear/diminished BL. POX=94%; HR=98; Telemetry shows a short stretch of Afib (2-3 beats) that
self-resolves back into NSR. Educated patient on deep breathing through it; on Afib and questions for Physician. Patient verbalized understanding.
[2023-11-30] MEDS: SENOKOT 8.59999999999999964 MG PO (20:05)
[2023-12-01 03:02] VITALS: BP 116/65
[2023-12-01] MEDS: DILAUDID 0.5 MG IV ×4 (03:35→21:30)
[2023-12-01 07:44] LABS: Glucose - Point of Care 109 mg/dl (70-99)
[2023-12-01] MEDS: VITAMIN D3 (cholecalciferol) 25 MCG PO (07:49)
[2023-12-01] MEDS: LOW STRENGTH ASPIRIN 81 MG PO (07:49)
[2023-12-01] MEDS: COLACE 100 MG PO (07:49)
[2023-12-01] MEDS: FOLVITE 1 MG PO (07:50)
[2023-12-01] MEDS: VITAMIN B-12 1000 MCG PO (07:50)
[2023-12-01] MEDS: COREG 3.125 MG PO ×2 (07:50→20:07)
[2023-12-01] MEDS: DIOVAN 40 MG PO (07:50)
[2023-12-01] MEDS: MIRALAX 17 GRAMS PO (07:50)
[2023-12-01] MEDS: VITAMIN C 500 MG PO (07:51)
[2023-12-01 08:13] VITALS: BP 121/72
--- NOTE | 2023-12-01 09:26 | W.PN.PUL.V3 ---
Today's Communication / Plan
-
Wean oxygen
Continue pleural catheter drainages
Comfort a priority
Prognosis unfortunately quite poor
Assessment
-
58-year-old female with recurrent breast cancer with pulmonary metastases and bilateral recurrent pleural effusions status post left pleural catheter as well as right pleural catheter with recent replacement at [facility] now presents with shortness of
breath, pain in the back, and recurrent pleural effusions-pulmonary consulted for recurrent pleural effusions 11/24/2023.
Impression:
Recurrent bilateral loculated pleural effusions
Status post left Pleurx catheter-drained 3 times weekly-averaging over 700 mL
Status post right Pleurx catheter x 2-last drainage output, previously required tPA
Status post TPA/right pleural lysis 11/24/23
Bilateral consolidations/pneumonia
Immunocompromised status postchemotherapy
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
Abdominal pain secondary to abdominal ascites and probable hepatic metastases
Elevated LFTs
Bilateral lymphedema
Hyponatremia
Xizeos-vnjpvfqrnp-kgqauuzfvy 9.7
Acute/subacute ischemic CVA -seen on brain MRI on 11/24/2023 involving the left-sided parietal lobe/centrum semiovale region
Conditions present prior to admission:
Breast CA/mastectomy/XRT/chemotherapy-[facility].
Uterine/cervical cancer status post XRT.
Recurrent bilateral pleural effusions status post bilateral Pleurx catheters.
Migraines.
PAF.
Hypertension.
x 3. Hernia repair. Bilateral mastectomy.
Plan
Pulmonary status remains somewhat tenuous-significant shortness of breath with some improvement with Pleurx catheter drainages.
Continue supplemental oxygen as needed-assess discharge supplemental oxygen needs
Her pulmonary decompensation likely related to pneumonia and bilateral loculated pleural effusions
Supplemental oxygen-attempt to wean and assess discharge supplemental oxygen needs
BiPAP if needed-has not needed
Nebulizers if needed-currently not bronchospastic
Aspiration precautions
Incentive spirometry
Mucus clearing devices
Cultures reviewed
Blood cultures negative (collected 11/23/2023)
MRSA screen negative
Unable to produce sputum
Empiric antibiotics initiated-vancomycin and aztreonam-now changed to cefepime since 11/25/2023.
Infectious disease following-correspondence reviewed-antibiotics were discontinued and infectious disease signed off 11/30/2023
Visual changes with blurred vision involving her right eye
Brain MRI 11/24/23-suspect tiny punctate nonhemorrhagic acute/subacute infarct high left parietal lobe/central semi-ovale region
Neurology on board � continue with ASA, neurological checks with NIH stroke scale every shift and as needed for any change in mental status, and anticoagulation with Eliquis rec'd; patient currently only on DVT ppx w/ LMWH
Primary team discussing intensification of anticoagulation with patient-she is thinking about it
Continue to follow radiographically on occasion
Historically left pleural catheter is draining nearly 700 mL 3 times weekly-continue to drain as needed- consult interventional radiology for thrice weekly left Pleurx drainage
Historically right pleural catheter which was recently replaced at [facility] has drained much less
Interventional radiology-right pleural lysis/TPA 11/24/[address] Cavazos consulted interventional radiology 11/25/2023 for bilateral TIW Pleurx catheter drainage
Right and left Pleurx catheter is being drained intermittently
Analgesia for osseous metastatic disease per primary service
Monitor for oversedation
Note: Echocardiogram 11/25/2023-EF 61%, no significant valvular disease, PA systolic 30, no change compared to 2019
Oncological evaluation noted-Dr. Rutherford as well as Dr. Rose correspondence reviewed-they signed off-recommend follow-up at [facility]
Monitor hemoglobin
Transfuse as needed to keep Hb>7, plt>20k
DVT prophylaxis-LMWH ppx dosing --> as per the recommendations of neurology given her Hx of A-fib and ischemic L-sided CVA with high risk of cardio-embolic CVA, consider starting NOAC with Eliquis
Nutrition
Early mobilization/physical therapy
Reviewed with nursing
Diagnostic data:
Chest x-ray 10/29-NAD
Chest x-ray 03/12/2023-moderate loculated right pleural effusion which is new
CT chest 07/21/2023-negative for pulmonary embolism, pleural fluid loculated, moderate right pleural effusion, near complete consolidation basal segment right lower lobe suspicious for pneumonia, hepatic lesions
CT chest 12/12-no evidence for pulm embolism, moderate loculated bilateral pleural effusions improved on the right progressed on the left, moderate bibasilar consolidations concerning for pneumonia, findings suggestive of mild blastic osseous
metastatic disease mildly progressed, probable hepatic metastases and mild upper abdominal ascites
Thoracentesis 03/13/23-1300 mL straw-colored fluid
Tunneled pleural catheter placement 04/12/2023-asept pleural catheter placed on the right
Tunneled pleural catheter placement 06/23/2023-new tunneled catheter placed on the left
Echocardiogram 11/24/2019-EF 55-60%, stage I diastolic dysfunction, PA systolic estimated 29
Brain MRI 11-24-2023:
Suspect tiny punctate nonhemorrhagic acute/subacute infarct in the high left parietal lobe/centrum semiovale region.
Nonspecific subcentimeter focus of altered signal in the left cerebellum, possibly site of gliosis. Consider outpatient follow-up contrast-enhanced MRI brain in 3-6 months.
Subjective Data
-
Date of Service:
Date of Service: December 01, 2023
Chief Complaint: Pulmonary Follow Up and Dyspnea Follow Up
Subjective:
Feels about the same, feels better after drainage, perhaps somewhat less short of breath, no chest pain, productive cough or abdominal pain
Review of Systems
General: Other (Per HPI)
Objective Data
Data Reviewed
Vital Signs / I&O:
Vital Signs
Temp Pulse Resp BP Pulse Ox
98.2 F 73 20 121/72 100
12/01/23 08:13 12/01/23 08:13 12/01/23 08:13 12/01/23 08:13 12/01/23 08:13
Intake and Output
11/30/23 12/01/23 12/02/23
06:59 06:59 06:59
Intake Total 480 / 480 960 / 960
Balance 480 / 480 960 / 960
SaO2: 100
Nasal Cannula flow liters per minute: 3
Physical Exam
General: Respiratory Distress (mild) and Comfortable
HEENT: Normocephalic and Anicteric
Cardiovascular: Regular Rhythm and Peripheral Edema (+2 LE pitting edema b/l)
Respiratory: Wheeze (negative), Crackles (heard posteriorly in NIKI), Rhonchi (n), Accessory Resp Muscle Use (yes), Stridor (n) and Other (Diminished breath sounds bilaterally (R>L))
GI: Soft, Non Distended, Non Tender and Normal Bowel Sounds
Neurology: AO x 3 and Tremors (negative)
Skin: Warm, Dry, Cyanosis (n), Jaundice (n) and Rash (n)
Labs/Micro/Reports
Lab Data
11/29/23 04:46
11/29/23 04:46
Microbiology
11/23/23 22:12 Blood/Venous Blood Culture - Final
No Growth - Final Report
11/23/23 21:15 Blood/Venous Blood Culture - Final
No Growth - Final Report
[2023-12-01] MEDS: ZOFRAN 4 MG IV (10:09)
[2023-12-01 11:52] VITALS: BP 116/72
--- NOTE | 2023-12-01 11:53 | RESPNOTE ---
Attempted home O2 assessment. Patient not feeling well at this time. Assessment not done 100% on 3Liter N.C. uses 2 L at home. decreased 2L N.C.
[2023-12-01] MEDS: ALDACTONE 25 MG PO (11:57)
[2023-12-01] MEDS: LASIX 20 MG PO (11:57)
[2023-12-01] MEDS: LOVENOX SC (12:35)
--- NOTE | 2023-12-01 12:38 | W.PN.HOSP.TC ---
Addendum entered and electronically signed by Jin Cuello MD 12/01/23 17:16:
Pt has home O2 set up at home.
She likely to go home. She feels better with BM. Declining to get any CT scans' i had very many and i have one scheduled for next week'
She wants to see how she does with dinner and if ok wants to go home tonight.
Advised to be complaint with bowel regimen.
Advised to see her oncologist for further treatments .She was made awae about right kidney obstruction possible cancer related and liver mets.
Original Note:
Today's Communication/Plan
-
DC
Assessment / Plan
Assessment / Plan
A/P:
# Acute hypoxic respiratory insufficiency
# Moderate loculated bilateral likely malignant pleural effusions, progressed on the left, improved on the right
# Right sided Pleurx catheter with minimal drainage placed the dorsum
# Left-sided pleural catheter with moderate drainage placed at [facility]
-IR consulted for tPA of the right Pleurx catheter. S/p right pleural lysis on 11/23.
-Pulmonology consulted and appreciated input
-Oncology consulted and appreciated input.
-CW pleural tap 3/week via pleurax cath
- CW O2 via NC
- Assess for home O2. With rapid reaccumulation of pleural effusion which is evident on this admission I feel that she will require home O2 for symptom management.
(-Dr Talbot
- Discussed with outpatient oncologist today, Dr. Michelle Arana ([phone])
-Discussed with changing aspirin to Eliquis but patient hesitant and wants to keep aspirin for now. She still wants to hold on AC for her stroke
broached the subject of possibility of changing CODE STATUS DNR or hospice care but at the moment patient adamant she wants to remain full code and wants to continue active treatment. Overall prognosis guarded.)
# Moderate bibasilar consolidation concerning for pneumonia progressed on the left in the setting of immunocompromise status due to chemotherapy
- blood cultures and no growth so far
-Vancomycin/aztreonam changed to IV cefepime by ID.
-finished IV cefepime .
-ID consult and follow-up appreciated
# Right visual loss--> stroke related and possible component of migraine
-Out of the time window for tPA/TNK
-MRI of the brain confirms stroke in the left parietal lobe/centrum semiovale
-Continue aspirin and consideration for changing to Eliquis. Patient has reservations even with aspirin at this point.
-No statins given elevated LFTs.
-Ultrasound carotids no significant stenosis
-Reviewed echocardiogram
#Abdominal discomfort and rt flank pain and tenderness
There is evidence however of probable hepatic metastasis and probably abdominal ascites as well as known cervical cancer some hydronephrosis with several processes going on on her abdomen.
Checked with her primary oncologist Dr. Arana yesterday-she is known to have right kidney severe hydronephrosis on prior imaging. She had an admission with hematuria and there was a concern if she was having a malignant process in the right
kidney but that was not further evaluated with a cystoscopy or a biopsy. There was also concern of abnormal liver opacities concerning for mets.
Creatinine being normal and LFTs compared to before being stable I will treat her symptomatically. Follow-up with primary oncologist for further treatments.
She has been nauseous and has episode of emesis. She is having bowel movement. Doubt obstruction. Abdomen is slightly distended. She has evidence of some ascites before. Patient will wants to hold on any CT imaging. Recommed bowel regimen
and use as needed Zofran which she has at home. If she tolerates her lunch we will discharge her home.
# Upper back pain likely due to blastic osseous metastatic disease
-Upper back pain is nonspecific
-Morphine for pain
# Abdominal pain secondary to mild upper abdominal ascites/probable hepatic metastases
# Transaminitis secondary to likely hepatic metastases
-Continue spironolactone
-Continue Lasix
# Bilateral lymphedema secondary to prior uterine radiation/venous insufficiency/hypoalbuminemia
-Continue Lasix/Spironolactone
-Patient reportedly had venous ultrasounds most recently 2 months ago which were negative for DVT
-Continue compression
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
-Check urine sodium, osmolality
-Fluid restriction 40 ounces
Breast cancer status postmastectomy and/radiation, received chemotherapy yesterday
Uterine cancer/cervical cancer status post radiation
Paroxysmal atrial fibrillation
-Continue Coreg
-Continue aspirin
Essential hypertension
-Continue losartan
History of migraines
Full code
DVT prophylaxis�heparin change to lovenox
DC today once she tolerates diet and home O2 assessments are complete
Anticipated Discharge: Today
Subjective/Interval History
-
Date of Service: December 01, 2023
Breathing more comfortable.
She is having some nausea and vomiting. She feels bloated in belly. She finally had some bowel movement which is a small one.
Denies any fever or chills.
Objective Data
-
Vital Signs:
Vital Signs
Temp Pulse Resp BP Pulse Ox
98 F 84 20 116/72 100
12/01/23 11:52 12/01/23 11:52 12/01/23 11:52 12/01/23 11:52 12/01/23 11:52
I&O
11/30/23 12/01/23 12/02/23
06:59 06:59 06:59
Intake Total 480 / 480 960 / 960
Balance 480 / 480 960 / 960
Review of Systems
-
Constitutional: Denies Fever
EENT: Denies Sore Throat
Cardiac: Denies Chest Pain
Neuro: Denies Dizzy
Physical Exam
-
General: No Apparent Distress
HEENT: Moist Mucous Membranes
Respiratory: Decreased Breath Sounds (at bases); Negative Wheezes
Cardiac: Regular Rhythm and S1/S2
GI: Soft, Nontender, Normal Bowel Sounds and Distended (mild)
Neuro: AO x 3
Psych: Calm; Negative Confused
--- NOTE | 2023-12-01 13:45 | PTCARENOTE ---
11/30- Patient is AAOX3 but very anxious at this time d/t another chest pain/fluttering episode and stating her vision is getting noticeably worse. She states she currently can only see [place] shadows. R pupil=sluggishly reactive; R-pupil=1mm
diameter. Performed a new NIH assessment. NIH=3 d/t vision. Telemetry showed a short run of PVCs and Afib but self-resolved into NSR. Educated on deep breathing and relaxation techniques again. Patient verbalized understanding. Notified
Physician.
[2023-12-01 15:48] VITALS: BP 112/66
--- NOTE | 2023-12-01 17:13 | W.DS.TRANS ---
DC Summary - [employer]
-
Discharge Instructions:
Sleep Apnea Risk Low
Discharge Diagnosis/Procedures Recurrent bilateral pleural effusion -malignant;
met breast Ca
Diet Regular
Activity As tolerated
Driving Restrictions No driving
Instructions:
Stand-Alone Forms:
Changes to Home Medications: Yes
Discharge Medications:
DC Medications w/original date entered in [facility]
ascorbic acid (vitamin C) 500 mg tablet 500 mg PO DAILY 06/23/23
carvedilol 3.125 mg tablet 3.125 mg PO BID 06/23/23
furosemide 20 mg tablet 20 mg PO DAILY 06/23/23
ondansetron 8 mg disintegrating tablet 8 mg PO Q8H PRN nausea/vomiting 06/23/23
spironolactone 25 mg tablet 25 mg PO DAILY 09/20/23
albuterol sulfate 90 mcg/actuation aerosol inhaler 1 puff inhalation R Q6HPRN PRN sob/wheezing 11/23/23
cholecalciferol (vitamin D3) 25 mcg (1,000 unit) tablet 25 mcg PO DAILY 11/23/23
cyanocobalamin (vitamin B-12) 1,000 mcg tablet 1,000 mcg PO DAILY 11/23/23
folic acid 1 mg tablet 1 mg PO DAILY 11/23/23
simethicone 80 mg chewable tablet 80 mg PO Q6HPRN PRN gas 11/23/23
valsartan 40 mg tablet 40 mg PO DAILY 11/23/23
acetaminophen 325 mg tablet 650 mg (2 x 325 mg) PO Q4HPRN PRN mild pain /fever >100.4 #1 tab 12/01/23
aspirin 81 mg chewable tablet (Children's Aspirin) 81 mg PO DAILY #30 tabs 12/01/23
docusate sodium 100 mg capsule 100 mg PO BID #60 caps 12/01/23
oxycodone 5 mg tablet 5 mg PO Q4HPRN PRN moderate pain #20 tabs 12/01/23
polyethylene glycol 3350 17 gram oral powder packet (HealthyLax) 17 g PO DAILY #30 ea 12/01/23
sennosides 8.6 mg tablet (Senna Laxative) 8.6 mg PO HS #30 tabs 12/01/23
Home Medication Changes
New Medication-senna, MiraLAX, oxycodone, Colace, aspirin
Pending Results: No
[2023-12-01 19:47] VITALS: BP 124/68
[2023-12-01] MEDS: COLACE PO (20:17)
[2023-12-01] MEDS: SENOKOT PO (20:17)
[2023-12-01 23:21] VITALS: BP 110/65
[2023-12-02] MEDS: DILAUDID 0.5 MG IV ×3 (02:46→12:55)
[2023-12-02 03:31] VITALS: BP 115/72
[2023-12-02 07:45] VITALS: BP 118/68
[2023-12-02] MEDS: ZOFRAN 4 MG IV (08:55)
[2023-12-02] MEDS: FLUSH (NSS) 3 FLUSH IV (08:58)
--- NOTE | 2023-12-02 10:10 | W.PN.PUL.V3 ---
Today's Communication / Plan
-
Wean oxygen
Pleural fluid drainage 3 times weekly bilaterally
Discharge planning
Assessment
-
58-year-old female with recurrent breast cancer with pulmonary metastases and bilateral recurrent pleural effusions status post left pleural catheter as well as right pleural catheter with recent replacement at [facility] now presents with shortness of
breath, pain in the back, and recurrent pleural effusions-pulmonary consulted for recurrent pleural effusions 11/24/2023.
Impression:
Recurrent bilateral loculated pleural effusions
Status post left Pleurx catheter-drained 3 times weekly-averaging over 700 mL
Status post right Pleurx catheter x 2-last drainage output, previously required tPA
Status post TPA/right pleural lysis 11/24/23
Bilateral consolidations/pneumonia
Immunocompromised status postchemotherapy
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
Abdominal pain secondary to abdominal ascites and probable hepatic metastases
Elevated LFTs
Bilateral lymphedema
Hyponatremia
Vbbyqs-rweaptdrve-whszswmbqj 9.7
Acute/subacute ischemic CVA -seen on brain MRI on 11/24/2023 involving the left-sided parietal lobe/centrum semiovale region
Conditions present prior to admission:
Breast CA/mastectomy/XRT/chemotherapy-[facility].
Uterine/cervical cancer status post XRT.
Recurrent bilateral pleural effusions status post bilateral Pleurx catheters.
Migraines.
PAF.
Hypertension.
x 3. Hernia repair. Bilateral mastectomy.
Plan
Her pulmonary status remains somewhat tenuous and likely always will be-significant shortness of breath with some improvement with Pleurx catheter drainages.
Continue supplemental oxygen as needed-assess discharge supplemental oxygen needs
Her pulmonary decompensation likely related to pneumonia and bilateral loculated pleural effusions
Supplemental oxygen-attempt to wean and assess discharge supplemental oxygen needs
BiPAP if needed-has not needed
Nebulizers if needed-currently not bronchospastic
Aspiration precautions
Incentive spirometry
Mucus clearing devices
Cultures reviewed
Blood cultures negative (collected 11/23/2023)
MRSA screen negative
Unable to produce sputum
Empiric antibiotics initiated-vancomycin and aztreonam-now changed to cefepime since 11/25/2023.
Infectious disease following-correspondence reviewed-antibiotics were discontinued and infectious disease signed off 11/30/2023
Visual changes with blurred vision involving her right eye
Brain MRI 11/24/23-suspect tiny punctate nonhemorrhagic acute/subacute infarct high left parietal lobe/central semi-ovale region
Neurology on board � continue with ASA, neurological checks with NIH stroke scale every shift and as needed for any change in mental status, and anticoagulation with Eliquis rec'd; patient currently only on DVT ppx w/ LMWH
Primary team discussing intensification of anticoagulation with patient-she is thinking about it
Continue to follow radiographically on occasion
Historically left pleural catheter is draining nearly 700 mL 3 times weekly-continue to drain as needed- consult interventional radiology for thrice weekly left Pleurx drainage
Historically right pleural catheter which was recently replaced at [facility] has drained much less
Interventional radiology-right pleural lysis/TPA 11/24/[address] Cavazos consulted interventional radiology 11/25/2023 for bilateral TIW Pleurx catheter drainage
Right and left Pleurx catheter is being drained intermittently
Analgesia for osseous metastatic disease per primary service
Monitor for oversedation
Note: Echocardiogram 11/25/2023-EF 61%, no significant valvular disease, PA systolic 30, no change compared to 2019
Oncological evaluation noted-Dr. Rutherford as well as Dr. Rose correspondence reviewed-they signed off-recommend follow-up at [facility]
Monitor hemoglobin
Transfuse as needed to keep Hb>7, plt>20k
DVT prophylaxis-LMWH ppx dosing --> as per the recommendations of neurology given her Hx of A-fib and ischemic L-sided CVA with high risk of cardio-embolic CVA, consider starting NOAC with Eliquis-patient reluctant however
Nutrition
Early mobilization/physical therapy
Reviewed with nursing
Diagnostic data:
Chest x-ray 10/29-NAD
Chest x-ray 03/12/2023-moderate loculated right pleural effusion which is new
CT chest 07/21/2023-negative for pulmonary embolism, pleural fluid loculated, moderate right pleural effusion, near complete consolidation basal segment right lower lobe suspicious for pneumonia, hepatic lesions
CT chest 12/12-no evidence for pulm embolism, moderate loculated bilateral pleural effusions improved on the right progressed on the left, moderate bibasilar consolidations concerning for pneumonia, findings suggestive of mild blastic osseous
metastatic disease mildly progressed, probable hepatic metastases and mild upper abdominal ascites
Thoracentesis 03/13/23-1300 mL straw-colored fluid
Tunneled pleural catheter placement 04/12/2023-asept pleural catheter placed on the right
Tunneled pleural catheter placement 06/23/2023-new tunneled catheter placed on the left
Echocardiogram 11/24/2019-EF 55-60%, stage I diastolic dysfunction, PA systolic estimated 29
Brain MRI 11-24-2023:
Suspect tiny punctate nonhemorrhagic acute/subacute infarct in the high left parietal lobe/centrum semiovale region.
Nonspecific subcentimeter focus of altered signal in the left cerebellum, possibly site of gliosis. Consider outpatient follow-up contrast-enhanced MRI brain in 3-6 months.
Subjective Data
-
Date of Service:
Date of Service: December 02, 2023
Chief Complaint: Pulmonary Follow Up and Dyspnea Follow Up
Subjective:
Feels about the same, hoping to get additional drainage, still with shortness of breath with minimal exertion, no chest pain or abdominal pain, requiring intermittent biologic, nausea persists mostly in the morning when she first wakes up
Review of Systems
General: Other (Per HPI)
Objective Data
Data Reviewed
Vital Signs / I&O:
Vital Signs
Temp Pulse Resp BP Pulse Ox
98 F 72 20 118/68 99
12/02/23 07:45 12/02/23 07:45 12/02/23 07:45 12/02/23 07:45 12/02/23 07:45
Intake and Output
12/01/23 12/02/23 12/03/23
06:59 06:59 06:59
Intake Total 960 / 960 958 / 958
Balance 960 / 960 958 / 958
SaO2: 99
Nasal Cannula flow liters per minute: 3
Physical Exam
General: Respiratory Distress (mild) and Comfortable
HEENT: Normocephalic and Anicteric
Cardiovascular: Regular Rhythm and Peripheral Edema (+2 LE pitting edema b/l)
Respiratory: Wheeze (negative), Crackles (heard posteriorly in NIKI), Rhonchi (n), Accessory Resp Muscle Use (yes), Stridor (n) and Other (Diminished breath sounds bilaterally (R>L))
GI: Soft, Non Distended, Non Tender and Normal Bowel Sounds
Neurology: AO x 3 and Tremors (negative)
Skin: Warm, Dry, Cyanosis (n), Jaundice (n) and Rash (n)
Labs/Micro/Reports
Lab Data
11/29/23 04:46
11/29/23 04:46
[2023-12-02 11:17] VITALS: BP 118/77
--- NOTE | 2023-12-02 11:23 | W.PN.ONC ---
Today's Communication / Plan
-
Acute embolic CVA no HOG RIBBER mets
MBC presenting as recurrent pleural effusion, hepatic and bone metastases poorly controlled with Taxol will likely need to consider alternate therapy
Reevaluated pleural fluid for cytology and IHC for HER-2 negative -03/13
Hyponatremia stable
Patient has been historically noncompliant
Will follow offered to return to the office and comanage with [facility]
Impression
Impression
Breast CA/mastectomy/XRT/chemotherapy-[facility]
History of stage III cervical carcinoma
Acute CVA
Recurrent bilateral loculated pleural effusions
Status post left Pleurx catheter-drained 3 times weekly-averaging over 700 mL
Status post right Pleurx catheter x 2-last drainage output, previously required tPA
Bilateral consolidations/pneumonia
Immunocompromised status postchemotherapy
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
Abdominal pain secondary to abdominal ascites and probable hepatic metastases
Elevated LFTs
Bilateral lymphedema
Hyponatremia
Vepjlf-ghtgykaoqp-zgqopuqqrt 9.7
Migraines
Remote PE
PAF
Hypertension
Subjective/Objective
Subjective/Objective
Patient doing poorly. Troubled by visual loss in the right eye.
Vital Signs:
Vital Signs
Temp Pulse Resp BP Pulse Ox
98.1 F 80 20 118/77 100
12/02/23 11:17 12/02/23 11:17 12/02/23 11:17 12/02/23 11:17 12/02/23 11:17
Alert anxious
Regular
Decreased in the bases
Distended with bowel sounds noted
Symmetrical lower extremity +1 edema
Lab Results:
Laboratory Data
WBC 4.6 10^3/uL (4.8-10.8) L 11/29/23 04:46
Hgb 9.5 g/dL (12.0-16.0) L 11/29/23 04:46
Plt Count 363 10^3/uL (130-400) D 11/29/23 04:46
PT 14.0 Sec (11.4-14.6) 11/27/23 05:46
INR 1.07 11/27/23 05:46
eGFR > 60.00 11/29/23 04:46
[2023-12-02] MEDS: LOW STRENGTH ASPIRIN 81 MG PO (12:41)
[2023-12-02] MEDS: VITAMIN B-12 1000 MCG PO (12:41)
[2023-12-02] MEDS: VITAMIN C 500 MG PO (12:41)
[2023-12-02] MEDS: VITAMIN D3 (cholecalciferol) 25 MCG PO (12:42)
[2023-12-02] MEDS: FOLVITE 1 MG PO (12:43)
[2023-12-02] MEDS: COREG 3.125 MG PO (12:43)
[2023-12-02] MEDS: COLACE 100 MG PO (12:44)
[2023-12-02] MEDS: MIRALAX 17 GRAMS PO (12:45)
[2023-12-02] MEDS: DIOVAN 40 MG PO (12:52)
[2023-12-02] MEDS: FLUSH (NSS) 2 FLUSH IV (12:56)
--- NOTE | 2023-12-02 13:01 | W.PN.HOSP.TC ---
Today's Communication/Plan
-
DC
Assessment / Plan
Assessment / Plan
A/P:
# Acute hypoxic respiratory insufficiency
# Moderate loculated bilateral likely malignant pleural effusions, progressed on the left, improved on the right
# Right sided Pleurx catheter with minimal drainage placed the dorsum
# Left-sided pleural catheter with moderate drainage placed at [place] previously
-IR consulted for tPA of the right Pleurx catheter. S/p right pleural lysis on 11/23.
-Pulmonology consulted and appreciated input
-Oncology consulted and appreciated input.
-CW pleural tap 3/week via pleurax cath
- CW O2 via [place] ;he has O2 set up at home
(-Dr Talbot
- Discussed with outpatient oncologist today, Dr. Michelle Arana ([phone])
-Discussed with changing aspirin to Eliquis but patient hesitant and wants to keep aspirin for now. She still wants to hold on AC for her stroke
broached the subject of possibility of changing CODE STATUS DNR or hospice care but at the moment patient adamant she wants to remain full code and wants to continue active treatment. Overall prognosis guarded.)
# Moderate bibasilar consolidation concerning for pneumonia progressed on the left in the setting of immunocompromise status due to chemotherapy
- blood cultures and no growth so far
-Vancomycin/aztreonam changed to IV cefepime by ID.
-finished IV cefepime .
-ID consult and follow-up appreciated
# Right visual loss--> stroke related and possible component of migraine
-Out of the time window for tPA/TNK
-MRI of the brain confirms stroke in the left parietal lobe/centrum semiovale
-Continue aspirin and consideration for changing to Eliquis. Patient has reservations even with aspirin at this point.
-No statins given elevated LFTs.
-Ultrasound carotids no significant stenosis
-Reviewed echocardiogram
#Abdominal discomfort and rt flank pain and tenderness
There is evidence however of probable hepatic metastasis and probably abdominal ascites as well as known cervical cancer some hydronephrosis with several processes going on on her abdomen.
Checked with her primary oncologist Dr. Arana 11/29-she is known to have right kidney severe hydronephrosis on prior imaging. She had an admission with hematuria and there was a concern if she was having a malignant process in the right kidney
but that was not further evaluated with a cystoscopy or a biopsy. There was also concern of abnormal liver opacities concerning for mets.
Creatinine being normal and LFTs compared to before being stable I will treat her symptomatically. Follow-up with primary oncologist for further treatments.
She has been nauseous and has episode of emesis. She is having bowel movement. Doubt obstruction. Abdomen is slightly distended. She has evidence of some ascites before. Patient will wants to hold on any CT imaging. Recommed bowel regimen
and use as needed Zofran which she has at home. Since she is tolerating diet will dc home - advised to minimize narcotics and be aggressive with bowel regimen.
# Upper back pain likely due to blastic osseous metastatic disease
-Upper back pain is nonspecific
-Morphine for pain
# Abdominal pain secondary to mild upper abdominal ascites/probable hepatic metastases
# Transaminitis secondary to likely hepatic metastases
-Continue spironolactone
-Continue Lasix
# Bilateral lymphedema secondary to prior uterine radiation/venous insufficiency/hypoalbuminemia
-Continue Lasix/Spironolactone
-Patient reportedly had venous ultrasounds most recently 2 months ago which were negative for DVT
-Continue compression
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
-Check urine sodium, osmolality
-Fluid restriction 40 ounces
Breast cancer status postmastectomy and/radiation, received chemotherapy yesterday
Uterine cancer/cervical cancer status post radiation
Paroxysmal atrial fibrillation
-Continue Coreg
-Continue aspirin
Essential hypertension
-Continue losartan
History of migraines
Full code
DVT prophylaxis�heparin change to lovenox
DC today after rt pleural fluid drainage by IR
Pt aware to follow with Dr Arana for further tx
Prognosis is guarded with rapid pleural fluid accumulation, metastatic dz .
Anticipated Discharge: Today
Subjective/Interval History
-
Date of Service: December 02, 2023
Small amount of vomiting this morning but that feels okay. She was able to eat her breakfast. Has not had a bowel movement today but had small 1 yesterday.
Due for rt pleural cath drain today. Breathing is ok.
Objective Data
-
Vital Signs:
Vital Signs
Temp Pulse Resp BP Pulse Ox
98.1 F 80 20 118/77 100
12/02/23 11:17 12/02/23 11:17 12/02/23 11:17 12/02/23 11:17 12/02/23 11:17
I&O
12/01/23 12/02/23 12/03/23
06:59 06:59 06:59
Intake Total 960 / 960 958 / 958
Balance 960 / 960 958 / 958
Review of Systems
-
Respiratory: Denies Trouble Breathing (ok)
Cardiac: Denies Chest Pain
Abdomen/GI: Reports Nausea, Vomiting and Constipated
Neuro: Denies Dizzy
Physical Exam
-
General: No Apparent Distress
HEENT: Moist Mucous Membranes
Respiratory: Non Labored Respirations; Negative Wheezes or Accessory Resp Muscle Use
Cardiac: Regular Rhythm and S1/S2
GI: Soft and Nontender
Neuro: AO x 3
--- NOTE | 2023-12-02 13:02 | VNURNOTE ---
[facility] resumption of care updated in Care Port after review of chart and discussion with patient. Patient confirmed having [facility] contact number.
--- NOTE | 2023-12-02 14:02 | PN.IRAD.UPD ---
Update Note - IRAD
- -
Right Pleurx drained - 200ml blood tinged fluid. Site cleaned and dressed.
Left Asept drained - 600 ml clear yellow fluid. Site cleaned and dressed.
[2023-12-02] MEDS: LASIX 20 MG PO (14:51)
[2023-12-02] MEDS: ALDACTONE 25 MG PO (14:51)
[2023-12-02] MEDS: ROXICODONE 5 MG PO (14:59)
--- NOTE | 2023-12-02 15:01 | CM ---
Patient for discharge, Patient confirmed that she has a ride and that [facility]. CM will continue to follow for discharge planning needs.
Plan; home with no needs.
[2023-12-02 15:55] VITALS: BP 114/83
--- NOTE | 2023-12-02 16:09 | VATNOTE ---
port deaccessed per protocol however no heparin given via port since just administered by PCN, Isabelle @ 1330 per AUG.
--- NOTE | 2023-12-03 17:34 | W.DCSUMMARY ---
Discharge Summary
Discharge Data
Date of Admission: 11/23/23
Date of Discharge: 12/02/23
-
Pending Results: No
Hospital Course
primary diagnosis:
Acute hypoxic respiratory insufficiency
Moderate loculated bilateral malignant pleural effusion progressed on the left.
Bilateral Pleurx catheter in place for symptomatic drainage.
Right sided loculated pleural effusion requiring tPA and lysis
Moderate to bilateral consolidation concerning for pneumonia
subacute right vision loss secondary to acute left parietal/centrum semiovale ischemic infarction
right flank pain with chronic right-sided hydronephrosis
Possible liver mets.
Upper back pain from blastic osseous metastatic disease
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
Secondary diagnosis:
Breast cancer status postmastectomy and/radiation, received chemotherapy
Uterine cancer/cervical cancer status post radiation
Paroxysmal atrial fibrillation
Essential hypertension
Hospital course:
patient with metastatic breast cancer including malignant pleural effusions presented with shortness of breath. Noted to have moderate loculated bilateral pleural effusion. Right Pleurx catheter was not draining well leading to tPA and lysis of
the right-sided pleural effusion. She was having large amount of pleural fluid taps from Pleurx catheter for symptom relief. They are accumulating rapidly.
There was also bilateral lung consolidation concerning for pneumonia and received IV cefepime treatments which she finished in the hospital. Was seen by ID.
She does have home O2.
she brought to the attention on admission about right-sided visual loss happening at home. MRI of the brain showed left parietal/central semimobile infarction which was felt probably because of her visual field defect. With a history of
paroxysmal atrial fibrillation anticoagulation was recommended but she declined it for the fear of recurrent hematuria. She said it was significant hematuria last time needing hospitalization. She opted out for aspirin.
She was also complaining of upper back pain probably secondary to metastatic bony disease. She was also complaining of right flank pain and abdominal pain and she has severe right-sided hydronephrosis. Apparently she had this noted before. In
fact she had an admission to [facility] when she had an hematuria that is when they recognized she has a right sided severe hydronephrosis but no diagnostic biopsies were done.
Her pain symptoms in the back of the abdomen the flank secondary to her cancer.
on discussions with the primary oncologist she is not doing well with her cancer treatments.
We started her on pain regimen on discharge for home to follow with the primary oncologist Dr. Arana at [facility].
Consultants on board:
Pulmonary-phan Enriquez
Neurology Steve Hebert
Oncology-Froilan Johnston
Discharge Plan
-
Patient Disposition: Home (Routine Discharge)
Discharge Diagnosis/Procedures: Recurrent bilateral pleural effusion -malignant; met breast Ca
Condition: Serious
Diet: Regular
Activity: As tolerated
Driving Restrictions: No driving
Referrals:
[facility] [Outside] (RN at home.)
Ada Arana MD [Non-Admitting Privileges] - (call to make an appointment)
Marshall Trujillo NP [Family Provider] - in one week
Prescriptions:
New
sennosides [Senna Laxative] 8.6 mg Tablet
8.6 mg PO HS Qty: 30 0RF
polyethylene glycol 3350 [HealthyLax] 17 gram Powder In Packet
17 g PO DAILY Qty: 30 0RF
docusate sodium 100 mg Capsule
100 mg PO BID Qty: 60 0RF
aspirin [Children's Aspirin] 81 mg Tablet,Chewable
81 mg PO DAILY Qty: 30 0RF
oxycodone 5 mg Tablet
5 mg PO Q4HPRN PRN (Reason: moderate pain) Qty: 20 0RF
acetaminophen 325 mg Tablet
650 mg PO Q4HPRN PRN (Reason: mild pain /fever >100.4) Qty: 1 0RF
Continued
carvedilol 3.125 mg Tablet
3.125 mg PO BID
Patient Comments:
2 tablets BID
ondansetron 8 mg Tablet,Disintegrating
8 mg PO Q8H PRN (Reason: nausea/vomiting)
ascorbic acid (vitamin C) 500 mg Tablet
500 mg PO DAILY
furosemide 20 mg Tablet
20 mg PO DAILY
spironolactone 25 mg Tablet
25 mg PO DAILY
cyanocobalamin (vitamin B-12) 1,000 mcg Tablet
1,000 mcg PO DAILY
folic acid 1 mg Tablet
1 mg PO DAILY
albuterol sulfate 90 mcg/actuation Hfa Aerosol Inhaler
1 puff INHALATION R Q6HPRN PRN (Reason: sob/wheezing)
simethicone 80 mg Tablet,Chewable
80 mg PO Q6HPRN PRN (Reason: gas)
valsartan 40 mg tablet
40 mg PO DAILY
cholecalciferol (vitamin D3) 25 mcg (1,000 unit) Tablet
25 mcg PO DAILY
Discharge Orders:
Discharge Patient (As Directed); Ordered 12/02/23
Ordered By: Jin Cuello
Discharge Date and Time
Discharge Date/Time: 12/02/23 16:39
Print Language: FRISIAN
== END 2023-12-02 16:39 | disposition home or self-care (01) | DRG 542 ==
LOC: 4 WEST ACU 22:27
PROVIDERS: Clinical Nurse Specialist Family Health; Hospitalist; Internal Medicine Cardiovascular Disease; Radiology Vascular & Interventional Radiology; ADMITTING PHYSICIAN Hospitalist; ATTENDING PHYSICIAN Internal Medicine; CONSULT PHYSICIAN Student in an Organized Health Care Education/Training Program; EMERGENCY PHYSICIAN Emergency Medicine; FAMILY PHYSICIAN Nurse Practitioner Gerontology; OTHER PHYSICIAN Internal Medicine Critical Care Medicine; OTHER PHYSICIAN Internal Medicine Hematology & Oncology; OTHER PHYSICIAN Internal Medicine Infectious Disease
PROC: 3E0L317 Introduction of Other Thrombolytic into Pleural Cavity, Percutaneous Approach (ICD-10-PCS; 2023-11-24)
PROC: B24BZZZ Ultrasonography of Heart with Aorta (ICD-10-PCS; 2023-11-25)
DX: C79.51 Secondary malignant neoplasm of bone (principal); I63.40 Cerebral infarction due to embolism of unspecified cerebral artery; J18.9 Pneumonia, unspecified organism; J91.0 Malignant pleural effusion; C78.00 Secondary malignant neoplasm of unspecified lung; D84.821 Immunodeficiency due to drugs; R18.8 Other ascites; E22.2 Syndrome of inappropriate secretion of antidiuretic hormone; C78.7 Secondary malignant neoplasm of liver and intrahepatic bile duct; J96.11 Chronic respiratory failure with hypoxia; N13.30 Unspecified hydronephrosis; C50.919 Malignant neoplasm of unspecified site of unspecified female breast; E86.0 Dehydration; I48.0 Paroxysmal atrial fibrillation; G89.3 Neoplasm related pain (acute) (chronic); I89.0 Lymphedema, not elsewhere classified; I10 Essential (primary) hypertension; E05.90 Thyrotoxicosis, unspecified without thyrotoxic crisis or storm; G43.109 Migraine with aura, not intractable, without status migrainosus; H54.61 Unqualified visual loss, right eye, normal vision left eye; E88.09 Other disorders of plasma-protein metabolism, not elsewhere classified; D63.0 Anemia in neoplastic disease; T45.1X5A Adverse effect of antineoplastic and immunosuppressive drugs, initial encounter; Z79.899 Other long term (current) drug therapy; Z90.13 Acquired absence of bilateral breasts and nipples; Z88.0 Allergy status to penicillin; Z87.891 Personal history of nicotine dependence; Z86.711 Personal history of pulmonary embolism; Z99.81 Dependence on supplemental oxygen; Z92.3 Personal history of irradiation; Z91.199 Patient's noncompliance with other medical treatment and regimen due to unspecified reason; Z85.41 Personal history of malignant neoplasm of cervix uteri; Z17.0 Estrogen receptor positive status [ER+]; R29.700 NIHSS score 0
CPT/HCPCS: 32561; 70551; 71045; 71275; 76700; 80048; 80053; 80061; 82607; 82728; 82746; 82962; 83036; 83605; 83880; 83935; 84300; 84443; 84484; 85025; 85027; 85610; 87040; 87641; 92523; 92526; 92610; 93005; 93306; 93880; 94640; 97110; 97116; 97162; 97166; J2997; Q9967

== ENCOUNTER 2023-12-22 19:24 | Emergency (ER) | payer BC, SELFPAY ==
[2023-12-22] VITALS (36 sets, daily range): BP systolic 50–119; BP diastolic 27–88; BMI 27.6
[2023-12-22 19:48] LABS: % Basophils 0.2 % (0-2); % Immature Granulocytes 1.2 % (0-0.5); % Lymphocytes 3.2 % (20.5-51.1); % Neutrophils 88.4 % (42.2-75.2); Absolute Immature Granulocytes 0.3 10^3/uL (0-0.05); Absolute Lymphocytes 0.7 10^3/uL (1.2-3.4); Absolute Monocytes 1.5 10^3/uL (0.1-0.6); Absolute Neutrophils 19.1 10^3/uL (1.4-6.5); Hematocrit 32.8 % (37.0-47.0); Hemoglobin 11.2 g/dL (12.0-16.0); Mean Corp Hgb Conc. 34.1 g/dL (33.0-37.0); Mean Corpuscular Hgb 28.6 pg (27.0-31.0); Mean Corpuscular Volume 83.9 fL (81.0-99.0); Mean Platelet Volume 10.5 fL (7.4-10.4); Nucleated Red Blood Cells % 0 %; Platelet Count 554 10^3/uL (130-400); Red Blood Cell Count 3.91 10^6/uL (4.20-5.40); Red Cell Dist. Width 20.6 % (11.5-14.5); White Blood Cell Count 21.6 10^3/uL (4.8-10.8)
[2023-12-22 20:00] LABS: ALT (SGPT) 374 U/L (0-35); AST (SGOT) 434 U/L (14-36); Albumin 2.5 g/dl (3.5-5.0); Blood Urea Nitrogen 57 mg/dl (7-17); Calcium 11.6 mg/dl (8.4-10.2); Carbon Dioxide 21 mmol/L (22-30); Chloride 94 mmol/L (98-107); Glucose 197 mg/dl (70-99); Potassium 5.1 mmol/L (3.5-5.1); Sodium 126 mmol/L (135-145); Total Bilirubin 12.1 mg/dl (0.2-1.3); Total Protein 4.8 g/dl (6.3-8.2); eGFR 32.66
[2023-12-22 20:03] LABS: Lactic Acid 4.5 mmol/L (0.7-2.0)
[2023-12-22 20:07] LABS: Alkaline Phosphatase 2155 U/L (38-126)
[2023-12-22 20:09] LABS: B.E. -9.7 mmol/L; HCO3 22.4 mmol/L (21-28); O2 Saturation % 69.8 % (94-98)
[2023-12-22 20:12] LABS: NT-proBNP 219 pg/ml; Troponin I < 0.012 ng/ml
[2023-12-22 20:12] LABS: PCO2 83 mmHg (32-35); PO2 51 mmHg (83-108); pH 7.04 (7.35-7.45)
--- NOTE | 2023-12-22 20:27 | EDRN ---
1926 Respiratory called to come to bedside by ED charge account authorizer
1927 Antonio Landaverde at bedside immediately, respiratory at bedside
1929 20 mcg epi R hand 22 guage access per S. Gazak
1934 second dose 20 mcg epi R had 22 guage access per S. Gazak
1933 10 mcg levo per S. Gazak
1935 10 mg etomidate RAC 20 G access
1936 100 rocuronium RAC per S. Gazak
1936 pt. intubated 7.5 tube, 26 lip
19:38 pt. suctioned
1937 air in cuff
1939 RN called IV team to access
1939 xray at bedside for protal chest xray
1939 IV team returned call, Camille on way
1941 Antonio Landaverde reading xray at bedside
1942 IV team at bedside to access power port L chest
1943 NG tube inserted 16 Fr salem sump dual lumen
1943 ICU called for chest drains
1947 Antonio Landaverde at bedside to drained L lung 350 ml extracted
1949 1L NSS with pressure infuser L chest power port
1949 Nasreen Velazquez at bedside to notify Antonio Landaverde family in family waiting room
1956 respiratory drawing labs as ordered, ABG
1999 fentenayl 50 mcg started
2000 2 mg midazolam RAC
2003 lab called with lactic results, RN notified Antonio Landaverde, acknowledged, 4.5
2004 IO access L obtained by Antonio Landaverde
2005 1L NSS L IO with pressure cuff
2008 2 mg midazolam administered via L chest power port
2010 fentenayl increased by 50 to total 100
2011 Antonio Landaverde talking to family to discuss level of care
2012 lab called with ABG results, RN notified Antonio Landaverde, acknowledged
2014 Antonio Landaverde milena 100 ml R lung
2017 1 amp bicarb given in power port L chest
2019 respiratory settings rate 20, 8 peep, 350 tidal volume
2021 RN called xray for 2nd portable chest xray as ordered,
2023 Antonio Landaverde informs family request continue full level of care
2025 Antonio Landaverde verbal order 1L NSS (3rd liter), in port acess
2032 Antonio Landaverde at bedside to reassess pt.
2034 1 amp bicard administered
2036 pharmacy called for albumin
2037 service provider called OR for pluravac drainage tubing
2039 solumedrol 125 mg administered in L chest port
2041 pharmacy called to confirm pt. wt, 77.4 kg confirmed
2041 cefepime 2 g administered port L chest
2042 levo increased to 30 mcg/min per ICU [employer]ED [employer] Vivian
2045 Antonio Landaverde brings family to bedside significant other
[2023-12-22] MEDS: PITRESSIN 100 IV (20:48)
[2023-12-22] MEDS: FLEXBUMIN 100 IV (20:53)
[2023-12-22] MEDS: NEO-SYNEPHRINE 250 IV (21:06)
[2023-12-22 21:20] LABS: B.E. -8.1 mmol/L; HCO3 26.2 mmol/L (21-28); O2 Saturation % 83.7 % (94-98); PO2 64 mmHg (83-108)
[2023-12-22 21:22] LABS: PCO2 > 115 mmHg (32-35); pH 6.95 (7.35-7.45)
--- NOTE | 2023-12-22 21:23 | ED.GENMED ---
History of Present Illness
General
Chief Complaint: Breathing Problem
Source: records, significant other, family and ambulance crew
Exam Limitations: clinical condition
Nursing documentation reviewed up to this point in time: agreed with
History of Present Illness
History of Present Illness:
58-year-old female with a past medical history of metastatic breast cancer, malignant pleural effusions with bilateral Pleurx catheters with chronic respiratory failure on home oxygen, liver metastasis and worsening hepatic failure, paroxysmal
A-fib, hypertension who presents to the emergency room via EMS in acute respiratory distress. She is minimally responsive and cannot participate in history. She was notably admitted for acute hypoxic respiratory failure related to pleural
effusions from 11/23/2023 until 12/02/2023. Review of her record shows that she follows at [facility] primarily for oncology care. Per EMS report they received a call for respiratory distress on their arrival patient was minimally responsive and hypoxic to
the 50s, tachypneic. She was placed on CPAP with minimal improvement in her oxygenation. She was given a DuoNeb as she was noted to have some wheezing. After initial resuscitation I was able to speak to her significant other who has been with her
for a long time and lives with her. I also spoke with her daughters on the phone who unfortunately are out of town. He says that she has had generalized failure to thrive for the past few weeks and is not eating or drinking much. He says that
tonight around 6 PM she started vomiting and shortly after said that she could not breathe and became unresponsive. EMS called to bring her to the hospital.
Past History
Past History
ED Past Medical History: Arrthythmia (Atrial fib), Cancer (Breast CA with met to lungs. Cervical CA) and Other (Bilateral lung drains, Ovarian cyst, Thoracentesis)
ED Past Surgical History: (X 3) and Other (Hernia, bilateral mastectomy, )
Social History
Tobacco: Former smoker
Alcohol: None
Drug: None
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
Living: with family
Employment: Not employed (Homemaker)
Family History
Family History: CAD
Review of Systems
Review of Systems
Unable to obtain full review of systems at this time due to: due to acuity
All Other Systems: Not applicable
Phy Exam
Physical Exam
Physical Exam:
General: Unresponsive, withdraws from pain
Head: Normocephalic, atraumatic
Eyes: Conjunctiva normal, scleral icterus
Throat: Not protecting her airway
Neck: Trachea midline, no JVD
Lungs: Severely diminished at the lung bases bilaterally; she does have scattered rhonchorous breath sounds throughout all lung guerra; she has bilateral Pleurx catheters; she is tachypneic and hypoxic despite active bagging with positive pressure
ventilation
Heart: Regular rate and rhythm, no murmurs, gallops, or rubs
Abd: Soft, non distended
Neuro: GCS 7
Skin: Jaundiced
Extremities: Thready distal pulses, no edema
Scores
Heart Failure Risk
Heart Failure Risk Score: Not Applicable
Heart Score for Chest Pain Patients
STEMI patient?: Not applicable
Withdrawal Assessment of Alcohol
Withdrawal Assessment Completed?: Not applicable
Course
Orders/Labs/Results
Orders:
Orders
12/22/23 19:25
Portable Chest Xray [CR Chest Portable - 1 View] Urgent
Comment:
Reason For Exam: sob
Reason Study Needs to be Portable: Unable to Transport
12/22/23 19:29
NORepinephrine 4 MG/250 ML [Levophed] 4 mg in 250 ml .ROUTE .STK-MED
Propofol 1,000,000 Mcg/100 ml [Diprivan] 1,000,000 mcg in 100 ml .ROUTE .STK-MED
12/22/23 19:40
Electrocardiogram (*1) Urgent
Reason for Study: Other
Other Reason for Exam: Respiratory Distress
Cardiac Monitoring- Treatment ONCE
EKG- Treatment ONCE
IV Insert/Care/Rem.- Treatment PRN
O2 Therapy [RESP] Urgent
Titrate/Wean O2 to maintain O2 sat greater than (%): 93
Special Instructions: TO MAINTAIN CONTINUOUS O2 SATS >/= 93%
Pulse Ox/cont/shift [RESP] Urgent
Quantity: 1
Special Instructions: continuous pulse ox
12/22/23 19:43
Complete Blood Count/With Diff Urgent
Comprehensive Metabolic Panel Urgent
Lactate Level [Lactic Acid] Urgent
NT-proBNP Urgent
Troponin I Urgent
12/22/23 19:51
FentaNYL 1,000 MCG/100 ML [Sublimaze] 1,000 mcg in 100 ml .ROUTE .STK-MED
Midazolam HCl [Versed] 2 mg .ROUTE .STK-MED ONE
12/22/23 20:00
ABG [Arterial Blood Gas] Urgent
%Oxygen/Room Air: 67
12/22/23 20:08
Midazolam HCl [Versed] 2 mg .ROUTE .STK-MED ONE
12/22/23 20:22
Portable Chest Xray [CR Chest Portable - 1 View] Urgent
Comment:
Reason For Exam: breathing
Reason Study Needs to be Portable: Unable to Transport
12/22/23 20:27
Ipratropium/Albuterol Sulfate [Duoneb] 3 ml INH R NOW STA
MethylPREDNISolone PF [Solu-Medrol Pf] 125 mg IV NOW STA
12/22/23 20:28
Cefepime HCl [Maxipime] 2,000 mg IV NOW STA
MetroNIDAZOLE 500 MG/100 ML [Flagyl 500 mg] 100 ml IV NOW
12/22/23 20:29
Blood Culture Urgent
LISA Source: Blood/Venous
Specimen Description:
Ipratropium/Albuterol Sulfate [Duoneb] 3 ml INH R NOW STA
12/22/23 20:30
FentaNYL 1,000 MCG/100 ML [Sublimaze] 1,000 mcg in 100 ml IV NOW
Indication:: Light Sedation
Begin Infusion:: Now
Goal:: pain score </= 1, CPOT 0-2
Maximum dose in mcg/hr:: 300
Continue currently infusing dose and titrate:: Yes
Titration Instructions:: Titrate every 30 minutes if patient exhibits signs of pain or discomfort
Titration Instructions:: (pain score >/= 2, CPOT >/= 3).
Titration Instructions:: Administer bolus dose and increase infusion by 25 mcg/hr.
Taper Instructions:: If pain score at goal for 4 consecutive hours (pain score </= 1, CPOT 0-2)
Taper Instructions:: decrease infusion by 50 mcg/hr every 2 hours.
Taper Instructions:: When dose </= 50 mcg/hr may turn infusion off and consider PRN
Taper Instructions:: intermittent bolus doses only.
Over-sedation Instructions:: If CPOT 0-2 (goal) and RASS -3 to -5 (below goal) decrease sedative by 50%
Over-sedation Instructions:: first. If pain score remains at goal and RASS remains below goal in 1 hour,
Over-sedation Instructions:: decrease opioid infusion by 50%.
Notify provider:: immediately if pt exhibits: chest wall rigidity, hemodynamic instability,
Notify provider:: agitation/pain despite maximum dosing, pain when RASS below goal.
Additional Instructions:: Patient MUST be mechanically ventilated.
Fentanyl Citrate/Pf [Sublimaze] 50 mcg IV NOW STA
Fentanyl Citrate/Pf [Sublimaze] 50 mcg IV [id number] PRN
Midazolam HCl [Versed] 2 mg IV [id number] PRN
12/22/23 20:32
0.9% Sodium Chloride 1000 ml [Nss] 2,000 ml IV BOLUS
12/22/23 20:45
Albumin Human 25% 100 ml [Flexbumin] 25 grams in 100 ml IV TODAY
PHENYLephrine 50 MG/250 ML NSS [Barney-Synephrine] 50 mg in 250 ml IV PER PROTOCOL
Initial dose in mcg/min, then titrate:: 20
Titrate to keep:: MAP > 65 mmHg
Titrate by mcg/min:: 20 mcg/min
Frequency of titrations (minutes):: 5
Maximum dose in ICU in mcg/min:: 200
Maximum dose in IMU in mcg/min:: 80
Begin to taper infusion when:: Remained at goal for 4hrs
Taper by mcg/min:: 20 mcg/min
Frequency of taper (minutes) if patient maintains goal:: 30
Taper to off?: Yes
If infusion off & no longer maintaining goal:: Contact Provider
12/22/23 20:50
Vancomycin [Vancocin] 2,000 mg 0.9% Sodium Chloride 500 ml [Nss] 500 ml IV NOW
12/22/23 20:59
Blood Culture Routine
LISA Source: Blood/Venous
Specimen Description:
12/22/23 21:00
Midazolam 25 mg/50 ml [Versed] 25 mg in 50 ml IV PER PROTOCOL
Indication:: Deep Sedation
Goal:: RASS </= -3, BIS 40-60, ventilator synchrony
Maximum dose in mg/hr:: 5
Continue currently infusing dose and titrate:: Yes
Titration Instructions:: Titrate Q30 min until ventilator synchrony, RASS or BIS goal is met.
Titration Instructions:: If RASS >/= -2 or BIS > 60 or ventilator dyssynchrony:
Titration Instructions:: administer bolus dose and increase infusion by 0.5 mg/hr.
Titration Instructions:: Administer analgesia bolus dose(s) & titrate analgesia prior to
Titration Instructions:: adjusting sedation.
Taper Instructions:: If RASS is at or below goal for 4 consecutive hours decrease infusion by
Taper Instructions:: 0.5 mg/hr every 2 hours.
Taper Instructions:: Do not wean infusion to off if patient is receiving a continuous NMBA or
Taper Instructions:: has received a bolus dose of NMBA within the past 3 hours.
Over-sedation Instructions:: if BIS < 40 and pt is synchronous with ventilator, decrease infusion by
Over-sedation Instructions:: 0.5 mg/hr every 2 hours until BIS = 40-60.
Additional Instructions:: Patient MUST be mechanically ventilated and must receive analgesia.
Vasopressin 20 Units/100 ml [Pitressin] 20 units in 100 ml IV PER PROTOCOL
Continuous dose without titration in units/min:: 0.03
Additional Titration Instructions:: Do not titrate. Rate change by provider order only.
12/22/23 21:14
ABG [Arterial Blood Gas] Stat
%Oxygen/Room Air: 50
12/22/23 21:23
Vecuronium [place] [Norcuron] 10 mg IV NOW STA
12/22/23 21:41
ABG [Arterial Blood Gas] Stat
%Oxygen/Room Air: 50
12/22/23 21:45
Dextrose 5%/Water 1000 ml [D5w] 1,000 ml Sodium Bicarbonate 150 meq IV 30 mls/hr
12/22/23 22:05
Code Status As Directed
Resuscitation Status: Do not resuscitate
Reached after discussion with pt or family/Healthcare POA: Yes
DNR Bracelet Application ONCE
12/22/23 22:11
Fentanyl Citrate/Pf [Sublimaze] 75 mcg IV NOW STA
Abnormal Lab Results
12/22/23 12/22/23 12/22/23
19:43 20:00 21:14
WBC 21.6 H 10^3/uL
(4.8-10.8)
RBC 3.91 L 10^6/uL
(4.20-5.40)
Hgb 11.2 L g/dL
(12.0-16.0)
Hct 32.8 L %
(37.0-47.0)
RDW 20.6 H %
(11.5-14.5)
Plt Count 554 H 10^3/uL
(130-400)
MPV 10.5 H fL
(7.4-10.4)
Abs Immat Gran (auto) 0.3 H 10^3/uL
(0-0.05)
Absolute Neuts (auto) 19.1 H 10^3/uL
(1.4-6.5)
Absolute Lymphs (auto) 0.7 L 10^3/uL
(1.2-3.4)
Absolute Monos (auto) 1.5 H 10^3/uL
(0.1-0.6)
Immature Gran % 1.2 H %
(0-0.5)
Neutrophils % 88.4 H %
(42.2-75.2)
Lymphocytes % 3.2 L %
(20.5-51.1)
pH 7.04 L* 6.95 L*
(7.35-7.45) (7.35-7.45)
pCO2 83 H* mmHg > 115 H* mmHg
(32-35) (32-35)
pO2 51 L* mmHg 64 L mmHg
(83-108) (83-108)
ABG O2 Sat (Measured) 69.8 L % 83.7 L %
(94-98) (94-98)
Sodium 126 L mmol/L
(135-145)
Chloride 94 L mmol/L
(98-107)
Carbon Dioxide 21 L mmol/L
(22-30)
BUN 57 H mg/dl
(7-17)
Creatinine 1.8 H mg/dL
(0.6-1.0)
Glucose 197 H mg/dl
(70-99)
Lactic Acid 4.5 H* mmol/L
(0.7-2.0)
Calcium 11.6 H mg/dl
(8.4-10.2)
Total Bilirubin 12.1 H mg/dl
(0.2-1.3)
AST 434 H U/L
(14-36)
ALT 374 H U/L
(0-35)
Alkaline Phosphatase 2155 H U/L
(38-126)
Total Protein 4.8 L g/dl
(6.3-8.2)
Albumin 2.5 L g/dl
(3.5-5.0)
12/22/23
21:41
WBC
RBC
Hgb
Hct
RDW
Plt Count
MPV
Abs Immat Gran (auto)
Absolute Neuts (auto)
Absolute Lymphs (auto)
Absolute Monos (auto)
Immature Gran %
Neutrophils %
Lymphocytes %
pH 6.98 L*
(7.35-7.45)
pCO2 105 H* mmHg
(32-35)
pO2 48 L* mmHg
(83-108)
ABG O2 Sat (Measured) 64.1 L %
(94-98)
Sodium
Chloride
Carbon Dioxide
BUN
Creatinine
Glucose
Lactic Acid
Calcium
Total Bilirubin
AST
ALT
Alkaline Phosphatase
Total Protein
Albumin
12/22/23 19:43
12/22/23 19:43
Vital Signs
Initial and Last Documented VS:
Initial Vital Signs
Pulse BP
70 65/37
12/22/23 19:28 12/22/23 19:28
Last Documented Vital Signs
Pulse Resp BP Pulse Ox
0 0 50/39 40
12/22/23 22:31 12/22/23 22:31 12/22/23 22:25 12/22/23 22:21
Procedures
Intubations
Procedure completed by: Sean Landaverde MD
Method of Intubation: glidescope
Tube size (cm): 7.5
Placement confirmed by: auscutation, CXR, capnography and direct visualization
Breath sounds after intubation: equal
Intubation complications: vomited
IV Access
Indication: Emergent access required
Performed by:: Sean Landaverde MD
Site:: right pre-tibial
Gauge:: 15G
MDM/Problems Addressed
Differential Diagnosis Includes:
Aspiration pneumonitis, pneumonia, pneumothorax, pleural effusions, PE, CHF
MDM/Problems Addressed:
58-year-old female with chronic medical history as above presents to the emergency room via EMS and extremis�she is in acute respiratory distress, hypotensive and hypoxic. She arrives to us with a blood pressure of 65/37, pulse in the 70s; she is
tachypneic breathing in the 30s on my assessment. Her oxygen saturation on CPAP from EMS is 57% and with positive pressure ventilation via [id number] difficult getting pulse ox above 60%. Very difficult to bag.
On arrival EMS indicated that family had produced DNR/DNI and unfortunately family not immediately available. She arrived with 2 large-bore peripheral IVs and we also accessed her right chest port and placed an intraosseous line for additional
access. Patient very unstable�attempts at initial resuscitation with fluids and ultimately vasopressors (push dose epinephrine followed by Levophed) provided very little improvement in blood pressure. Furthermore significant difficulty at attempts
at preoxygenation. Patient was intubated using RSI shortly after arrival after some attempts at resuscitation given difficulty maintaining oxygenation. She did have vomited in her airway during intubation; respiratory performed inline suction and
was able to remove what appeared to be vomit from further down in the airway. Her presentation is consistent with likely significant aspiration and acute pneumonitis as a result. Chest x-ray after intubation confirms bilateral opacities much worse
on the right; she also has significant bilateral pleural effusions.
After intubation she was still very difficult to bag with high pressure alarm, low tidal volumes and hypoxia despite gradual increase in PEEP and 100% FiO2 throughout. We did manually drain pleural effusions using Pleurx catheters with marginal
improvement. Furthermore we had significant difficulty improving her blood pressure�she was given a total of 3 L normal saline bolus, also given IV albumin. She was given IV Levophed which ultimately was maxed out. At this point I was able to
step out of the room to speak with the patient's significant other who is here in the emergency room; daughters available via telephone and we discussed the situation at length. They explained that patient had either been considering or perhaps
even just recently signed a DNR/DNI but this is not immediately available. Daughters would be the primary medical decision makers in this case. After much discussion about the very grim prognosis for the patient family ultimately not yet ready to
withdraw care and pursue comfort measures�they did confirm that they would not want chest compressions should patient have a cardiac arrest but are not yet ready for palliative extubation or comfort measures at this point and wish to continue trying
to support her with medical care and ventilator at this time.
Labs reviewed and patient has leukocytosis, anemia, hyponatremia, ABNER, acute hepatic failure. She has an elevated lactate consistent with shock. Her ABG shows acute respiratory acidosis and low PaO2 despite maximum oxygen support. She was given
broad-spectrum antibiotics with vancomycin, cefepime, Flagyl. She was also given dose of IV steroid. DuoNeb run in line through ET tube. On reassessment PEEP at 15, FiO2 at 100% and patient saturations still in the 70s to 80s. I spoke with the
surveillance director on the phone and ICU nurse practitioner at bedside at this point aiding in patient care. We discussed the possibility of bronchoscopy but on review of repeat chest x-ray patient appears to have worsening alveolar exudate and clinical
picture is concerning for aspiration pneumonitis with ARDS physiology. Likely little benefit from bronchoscopy at this point. Region Manager recommended paralysis and sedation with vecuronium (currently on Versed and fentanyl for sedation and
analgesia) and continuing with positive pressure ventilation to try and maintain saturations as best possible. Regarding shock�maxed out on Levophed, received IV fluids and albumin. Added vasopressin and Barney-Synephrine and patient unfortunately
still hypotensive.
I had a long discussion with the patient's family once again explained that patient is unlikely to survive the night. Still not ready for comfort measures at this point. Case was discussed with the hospitalist will admit to the ICU and continue
support as best we can.
Given multiple infusions plan to place central venous catheter for additional IV access. When I entered the room to place central line shortly after set up patient was noted to have worsening hypoxia. Bilateral breath sounds still present. Her
end-tidal CO2 began to drop and she became bradycardic to the 30s with worsening hypotension and thready femoral pulses. Patient is already on maximal pressor support and maximal respiratory support, sedated and paralyzed. Plan for central line
aborted and I immediately brought patient's significant other and her sister who is now here in the hospital to the bedside and explained that patient is likely to pass soon. Shortly thereafter patient lost pulses and bedside ultrasound confirmed
no organized cardiac activity; patient was pronounced at 10:30 PM on 12/22/2023; she passed with a family next to her holding her hand.
I did speak to the medical records library professor who declined the case. Nurse reached out to [facility] patient would be a candidate for corneal transplant. certificate started here for pronouncement; I reached out to patient's primary provider on the
phone who will certify.
Chronic conditions affecting care:
Metastatic cancer
*Radiology
Radiology exam reviewed: preliminary read by ED provider and radiology read reviewed
*Pulse Oximetry
Patient hypoxic: yes
*EKG
Interpreted by ED Provider?: Yes
Heart Rate: 109
Rate: tachycardiac
Rhythm: sinus
[place]: normal axis
Interval: normal interval
QRS Pattern: normal QRS
Ischemia: non-specific ST changes
*Critical Care Note
Total Time (30-74mins, 75-104mins- exclusive of procedures): 102
comment:
Critical care statement: A total of 102 minutes of critical care time was provided for this patient. This includes management of unstable vital signs, evaluation of the patient at bedside, frequent reassessment, discussion with
consultants/hospitalist, and review of pertinent medical records. This time was separate from time utilized to perform any aforementioned documented procedures
Data Reviewed
Review of Other/Old Records Reveals: Labs, Records and Discharge Summary
Source: records, significant other, family and ambulance crew
Patient Management
Discussion with other providers: Hospitalist (Discussed with hospitalist) and Supervisor Treating And Pumping (Discussed with surveillance director)
ED Attending Note
-
Portions of this chart may have been created with voice recognition software.� Occasional wrong word or��sound alike� substitutions may have occurred due to the inherent limitations of voice recognition software.
Discharge Plan
Departure
Patient Disposition:
Date of Disposition: 12/22/23
Time of Disposition: 21:37
Discharge Problem:
Aspiration pneumonitis, Pleural effusion, Acute respiratory distress syndrome (ARDS), Shock
Interventions
Interventions:
*Risk Screen - Suicide Last Done: 12/22/23 21:22
*General Assessment Last Done: 12/22/23 21:05
*Neglect/Abuse Screening Last Done: 12/22/23 21:38
*ED COVID-19 Vaccine History Last Done: 12/22/23 21:38
*Nursing Disposition Last Done: 12/23/23 00:07
ED- Cardiac Assessment Last Done: 12/22/23 21:22
ED- Pulmonary Assessment Last Done: 12/22/23 21:22
Discharge Date and Time
Discharge Date/Time: 12/23/23 00:10
[2023-12-22 21:46] LABS: B.E. -9.3 mmol/L; HCO3 24.7 mmol/L (21-28); O2 Saturation % 64.1 % (94-98)
[2023-12-22 21:47] LABS: pH 6.98 (7.35-7.45)
[2023-12-22 21:48] LABS: PCO2 105 mmHg (32-35); PO2 48 mmHg (83-108)
[2023-12-22] MEDS: VERSED 50 IV (22:13)
[2023-12-22] MEDS: VANCOCIN 540 MG IV (22:16)
== END 2023-12-22 22:30 | disposition expired ==
LOC: EMR 19:24
PROVIDERS: EMERGENCY PHYSICIAN Emergency Medicine
DX: J69.0 Pneumonitis due to inhalation of food and vomit (principal); J90 Pleural effusion, not elsewhere classified; J80 Acute respiratory distress syndrome; R57.9 Shock, unspecified
CPT/HCPCS: 99291; 31500; 96374; 96375; 71045; 80053; 82805; 83605; 83880; 84484; 85025; 93005; P9047